=== PATIENT | female | born 1955 ===

== ENCOUNTER 2020-09-12 07:44 | Outpatient (REF) | payer OTHER, SELFPAY ==
[2020-09-12 08:18] LABS: Basophils Percent Auto 0.5 % (0-2); Eosinophils Absolute Auto 0.2 X10*3/uL (0.0-0.4); Hematocrit 40.6 % (37-47); Hemoglobin 12.9 g/dl (12.0-16.0); Imm Gran Abs Auto 0.02 X10*3/uL (0.00-0.03); Imm Gran Pct Auto 0.2 % (0.0-0.4); Lymphocytes Percent Auto 22.7 % (20-40); MANUAL DIFF FLAG NO; Mean Corpuscular HGB Conc 31.8 g/dl (31.0-35.0); Mean Corpuscular Hemoglobin 26.8 pg (27.0-33.0); Mean Corpuscular Volume 84.4 fL (80-98); Mean Platelet Volume 9.4 fL (9.4-12.3); Monocytes Absolute Auto 0.6 X10*3/uL (0.1-1.2); Monocytes Percent Auto 6.8 % (2-11); Neutrophils Absolute Auto 5.9 X10*3/uL (2.0-8.3); Neutrophils Percent Auto 67.8 % (45-73); Platelet Count 264 X10*3/uL (160-400); Red Blood Count 4.81 X10*6/uL (4.20-5.50); Red Cell Distribution Width 14.4 % (11.0-16.0); White Blood Count 8.7 X10*3/uL (4.8-10.8)
[2020-09-12 08:46] LABS: Alanine Aminotransferase 19 U/L (0-31); Albumin Level 3.7 g/dL (3.5-5.0); Alkaline Phosphatase 90 U/L (39-117); Anion Gap 13 (12-20); Aspartate Amino Transferase 17 U/L (5-31); Bilirubin Total 0.4 mg/dL (0.0-1.0); Blood Urea Nitrogen 27 mg/dL (9-16); C Reactive Protein 1.33 mg/dL (< or = 0.50); Calcium 8.9 mg/dL (8.4-10.2); Carbon Dioxide 28 mmol/L (22-29); Chloride 105 mmol/L (96-108); Cholesterol 179 mg/dL; Estimated Glomerular Filt Rate > 60; Glucose Fasting 115 mg/dL (60-99); HDL Cholesterol 40 mg/dL; LDL Cholesterol Calculated 81 mg/dl; Potassium 4.6 mmol/l (3.3-5.1); Sodium 141 mmol/L (135-145); Triglycerides 290 mg/dL; Uric Acid 7.1 mg/dL (2.4-5.7)
[2020-09-12 09:07] LABS: Vitamin D 25-OH Total 27.5 ng/mL (>30)
[2020-09-12 09:13] LABS: Erythrocyte Sedimentation Rate 43 MM/HR (0-20)
[2020-09-12 09:16] LABS: Glucose Urine UA NEG (NEG); Leukocyte Esterase Urine NEG (NEG); Nitrite Urine NEG (NEG); Specific Gravity - Urine 1.015 (1.005-1.025); Urine Blood NEG (NEG); Urine Ketones NEG (NEG); Urine Protein NEG (NEG-TRACE)
[2020-09-12 09:17] LABS: Appearance Urine HAZY; Color Urine YELLOW
[2020-09-12 09:20] LABS: Estimated Average Glucose 126 mg/dL
[2020-09-12 10:18] LABS: Creatinine Urine 64.23 mg/dL; Microalbum/Creatinine Ratio Ur 34.2 ug/mg cr
== END 2020-09-12 07:45 | disposition home or self-care (01) ==
LOC: HO.LAB 07:44
PROVIDERS: PCP Internal Medicine; Visit Provider Internal Medicine
DX: E78.5 Hyperlipidemia, unspecified (principal); I10 Essential (primary) hypertension; E11.9 Type 2 diabetes mellitus without complications; M25.572 Pain in left ankle and joints of left foot; M06.4 Inflammatory polyarthropathy; K21.9 Gastro-esophageal reflux disease without esophagitis; E55.9 Vitamin D deficiency, unspecified
CPT/HCPCS: 36415; 80053; 80061; 81003; 82043; 82306; 83036; 84550; 85025; 85652; 86140

== ENCOUNTER 2020-11-07 10:36 | Outpatient (REF) | payer OTHER, SELFPAY ==
--- NOTE | 2020-11-07 10:40 | MM_ITS ---
EXAMINATION: MM SCREENING DIGITAL BREAST TOMOSYNTHESIS, BILATERAL CLINICAL INFORMATION: Screening. Asymptomatic. The lifetime risk of breast cancer based on the Tyrer-Cuzick Model is 13%. COMPARISON: Mammography: 08/03/2019, 07/15/2018, 06/21/2017 TECHNIQUE: Digital breast tomosynthesis is performed in both the craniocaudal and mediolateral oblique views along with computer-aided detection (CAD). Synthesized 2D images are generated from the tomosynthesis. FINDINGS: There are scattered areas of fibroglandular density (ACR BI-RADS breast composition Category b). There are no significant masses, abnormal calcifications, or other abnormalities. Parenchymal pattern is similar to prior exams. No significant changes. MM/MM tomosynthesis screening BI IMPRESSION: No mammographic evidence of malignancy. ASSESSMENT: BI-RADS 1: Negative RECOMMENDATION: Routine annual mammography screening. This patient's information was entered into a reminder system with a target due date for their next mammogram.
== END 2020-11-07 10:37 | disposition home or self-care (01) ==
LOC: HO.MAMMO 10:36
PROVIDERS: PCP Internal Medicine; Visit Provider Internal Medicine
DX: Z12.31 Encounter for screening mammogram for malignant neoplasm of breast (principal)
CPT/HCPCS: 77063; 77067

== ENCOUNTER 2020-11-18 14:44 | Emergency (ER) | payer OTHER, SELFPAY ==
--- NOTE | 2020-11-18 16:55 | PC.NURSE ---
not present when called for triage
--- NOTE | 2020-11-18 17:15 | PC.NURSE ---
PT IN [facility] WAITING AREA
[2020-11-18 21:29] VITALS: BP 182/80; PULSE 86; RESP 20; TEMP 37.5; O2SAT 96; BMI 42.2
[2020-11-18 21:37] VITALS: BP 182/80; PULSE 86; RESP 20; TEMP 37.5; O2SAT 96
--- NOTE | 2020-11-18 23:06 | ED_ITS ---
HPI - Ear Problem General Chief complaint: Ear Problems Stated complaint: ear pain, dizziness,fever Time Seen by Provider: 11/18/20 16:34 Source: patient Mode of arrival: ambulatory Limitations: no limitations History of Present Illness HPI Narrative: Patient comes in complaining of left-sided ear pain, started yesterday. Patient states for the last 2 days, she has been complaining of diffuse body aches, bilateral upper back pain, arm pains, no chest pain, no shortness of breath. Patient denies coughing MD Complaint: ear pain Related Data Home Medications Medication Instructions Recorded Confirmed acetaminophen 500 mg tablet 500 mg PO Q6H PRN 09/17/20 11/18/20 aspirin 81 mg tablet,delayed 81 mg PO QAM 09/17/20 09/23/20 release folic acid 1 mg tablet 1 mg PO DAILY 09/17/20 11/18/20 hydrochlorothiazide 25 mg tablet 25 mg PO DAILY 09/17/20 11/18/20 polyethylene glycol 3350 17 17 g PO DAILY 09/17/20 11/18/20 gram/dose oral powder potassium chloride 10 mEq 10 meq PO DAILY 09/17/20 11/18/20 tablet,extended release sennosides 8.6 mg tablet 8.6 mg PO DAILY 09/17/20 11/18/20 trazodone 100 mg tablet 100 mg PO BEDTIME 09/17/20 11/18/20 lancets [TRUEplus Lancets] 11/18/20 11/18/20 sitagliptin [Januvia] 1 tab PO QAM 11/18/20 11/18/20 Previous Rx's Medication Instructions Recorded atorvastatin 20 mg tablet 20 mg PO BEDTIME #30 tab 09/04/20 furosemide 40 mg tablet 40 mg PO DAILY #30 tab 09/04/20 metformin 1,000 mg tablet 1,000 mg PO BID #60 tab 09/04/20 omeprazole 20 mg capsule,delayed 20 mg PO QAM #30 cap 09/04/20 release valsartan 320 mg tablet 320 mg PO QAM #30 tab 09/04/20 ergocalciferol (vitamin D2) 1,250 1,250 mcg PO QWEEK #4 cap 09/30/20 mcg (50,000 unit) capsule metoprolol tartrate 50 mg tablet 50 mg PO BID #60 tab 10/02/20 blood sugar diagnostic 1 strip MISCELLANEOUS DAILY 50 10/29/20 Days #50 strip acetic acid 3 drp OTIC (EAR) LEFT Q6H #15 ml 11/18/20 amoxicillin-pot clavulanate 1 tab PO Q12H #19 tab 11/18/20 [Augmentin] Allergies Allergy/AdvReac Type Severity Reaction Status Date / Time tramadol AdvReac Intermediate stomach Verified 11/18/20 21:40 upset Review of Systems Review of Systems: Constitutional : No Weight loss, No Fever, No Chills, No Night Sweats, No Fatigue, No Malaise ENT/Mouth : No Hearing loss, complaining of left-sided ear pain, No Nasal Congestion, No Sinus Pain, No Hoarseness, slight sore throat, No Rhinorrhea, No Swallowing Difficulty Eyes: No Eye Pain, No Swelling, No Redness, No Foreign Body, No Discharge, No Vision Changes Cardiovascular : No Chest Pain, No SOB, No Dyspnea on Exertion, No Orthopnea, No Edema, No Palpitations Respiratory : No Cough, No Sputum, No Wheezing, No Smoke Exposure, No Dyspnea Gastrointestinal : No Nausea, No Vomiting, No Diarrhea, No Constipation, No abdominal Pain, No Hematochezia, No Melena Genitourinary : no irregular bleeding, No Dysuria, No Urinary Frequency, No Hematuria, No Urinary Incontinence, No Urgency, No Flank Pain, No Urinary Flow Changes, No Hesitancy Musculoskeletal : No joint pain, No Myalgias, No Joint Swelling Skin : No Skin Lesions, No rash Neuro : No Weakness, No Numbness, No Paresthesias, No Loss of Consciousness, No Dizziness, No Headache Psych : No Anxiety/Panic, No Depression, No SI/HI/AH/VH, No Social Issues, Heme/Lymph: No Bruising, No Bleeding,No Lymphadenopathy Endocrine : No Polyuria, No Polydipsia, No Temperature Intolerance [facility] Past Medical History Medical History Anxiety Benign essential hypertension Constipation Diabetes mellitus GERD without esophagitis Inflammatory polyarthropathy Insomnia Morbid obesity with BMI of 40.0-44.9, adult Obstructive sleep apnea Osteoarthritis of knee Overactive bladder Pure hypercholesterolemia Varicose veins of leg with edema Vitamin D deficiency Surgical History History of cardiac catheterization History of cataract surgery History of surgery Family History Family History Father Heart disease CVD (cardiovascular disease) Mother CVD (cardiovascular disease) Diabetes Heart disease Social History Social History (Updated 09/23/20 @ 02:23 by Anthony Lui MD) Alcohol intake: unknown Smoking Status: Unknown if ever smoked Use of substances other than those prescribed or required for medical reasons: Unknown Advance Directives: No Physical Exam Vital Signs: Vital Signs: Last Vital Signs Temp 99.5 F 11/18/20 21:37 Pulse 86 11/18/20 21:37 Resp 20 11/18/20 21:37 BP 182/80 H 11/18/20 21:37 Pulse Ox 96 11/18/20 21:37 Body Mass Index 42.2 Appearance: Alert. Oriented X3. No acute distress. Eyes: Pupils equal, round and reactive to light. ENT: Pharynx normal. 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 Oropharynx normal, no exudates, no abscess Neck: Normal inspection. Neck supple. No lymph nodes noted. No crepitus CVS: Normal heart rate and rhythm. Pulses normal. Normal S1 and S2 Respiratory: No respiratory distress. Breath sounds normal. No Wheezing. No rales Abdomen: Soft and nontender. No rigidity. No distention. good BS x4 Skin: Skin warm and dry. Normal skin color. Normal skin turgor. Extremities: No lower extremity edema. No lower extremity edema. No Lacerations. No Rash Neuro: Oriented X 3. No motor deficit. No sensory deficit. Moving all exterm ities. No slurred speech. Course Course Course Narrative: I discussed the physical exam with the patient, she likely has otitis media. Patient was tested for COVID-19, results will be available in the next 72 hours Prior to discharge, patient requested something to help her sleep tonight, patient received 1 dose of Benadryl Discharge Plan Discharge Clinical Impression: Body aches Otitis media Qualifiers: Otitis media type: unspecified Chronicity: acute Qualified Code(s): H66.90 - Otitis media, unspecified, unspecified ear Patient Disposition: Home, Self-Care Instructions: Ear Infection (ED) Prescriptions: New amoxicillin-pot clavulanate [Augmentin] 500-125 mg tablet 1 tab PO Q12H Qty: 19 RF: 0 acetic acid 2 % solution 3 drp otic (ear) left Q6H Qty: 15 RF: 0 No Action furosemide 40 mg tablet 40 mg PO DAILY Qty: 30 RF: 5 metformin 1,000 mg tablet 1,000 mg PO BID Qty: 60 RF: 5 omeprazole 20 mg capsule,delayed release(DR/EC) 20 mg PO QAM Qty: 30 RF: 5 valsartan 320 mg tablet 320 mg PO QAM Qty: 30 RF: 5 atorvastatin 20 mg tablet 20 mg PO BEDTIME Qty: 30 RF: 5 ergocalciferol (vitamin D2) [Vitamin D2] 1,250 mcg (50,000 unit) capsule 1,250 mcg PO QWEEK Qty: 4 RF: 6 metoprolol tartrate 50 mg tablet 50 mg PO BID Qty: 60 RF: 6 blood sugar diagnostic [FreeStyle Lite Strips] Strip 1 strip miscellaneous DAILY 50 Days Qty: 50 RF: 3 Januvia 100 mg tablet 1 tab PO QAM RF: 0 (DME) lancets [TRUEplus Lancets] 33 gauge misc MISCELLANEOUS QID RF: 0 polyethylene glycol 3350 17 gram/dose powder 17 g PO DAILY RF: 0 trazodone 100 mg tablet 100 mg PO BEDTIME RF: 0 hydrochlorothiazide 25 mg tablet 25 mg PO DAILY RF: 0 folic acid 1 mg tablet 1 mg PO DAILY RF: 0 potassium chloride 10 mEq tablet extended release 10 meq PO DAILY RF: 0 sennosides 8.6 mg tablet 8.6 mg PO DAILY RF: 0 aspirin 81 mg tablet,delayed release (DR/EC) 81 mg PO QAM RF: 0 acetaminophen 500 mg tablet 500 mg PO Q6H PRN (Reason: Pain, Moderate) RF: 0
[2020-11-18] MEDS: diphenhydrAMINE HCL 25 MG TABLET 50 MG PO (23:34)
[2020-11-18] MEDS: Amoxicillin/Potassium Clav 500 MG TABLET PO (23:34)
== END 2020-11-18 23:46 | disposition home or self-care (01) ==
PROVIDERS: Emergency Provider Emergency Medicine; PCP Internal Medicine
DX: H66.92 Otitis media, unspecified, left ear (principal); M79.10 Myalgia, unspecified site; Z20.828 Contact with and (suspected) exposure to other viral communicable diseases; I10 Essential (primary) hypertension; E11.9 Type 2 diabetes mellitus without complications
CPT/HCPCS: 36415; 99283; 99284; Q0163; U0003

== ENCOUNTER 2021-02-04 07:00 | Outpatient (REF) | payer OTHER, SELFPAY ==
[2021-02-04 07:56] LABS: MANUAL DIFF FLAG NO
[2021-02-04 08:03] LABS: Basophils Absolute Auto 0.1 X10*3/uL (0.0-0.2); Basophils Percent Auto 0.6 % (0-2); Eosinophils Absolute Auto 0.1 X10*3/uL (0.0-0.4); Eosinophils Percent Auto 1.4 % (0-4); Hematocrit 44.7 % (37-47); Hemoglobin 14.1 g/dl (12.0-16.0); Imm Gran Abs Auto 0.02 X10*3/uL (0.00-0.03); Imm Gran Pct Auto 0.2 % (0.0-0.4); Lymphocytes Absolute Auto 2.1 X10*3/uL (1.2-4.9); Lymphocytes Percent Auto 24.6 % (20-40); Mean Corpuscular HGB Conc 31.5 g/dl (31.0-35.0); Mean Corpuscular Hemoglobin 26.9 pg (27.0-33.0); Mean Corpuscular Volume 85.3 fL (80-98); Monocytes Absolute Auto 0.6 X10*3/uL (0.1-1.2); Monocytes Percent Auto 6.8 % (2-11); Neutrophils Absolute Auto 5.7 X10*3/uL (2.0-8.3); Neutrophils Percent Auto 66.4 % (45-73); Platelet Count 309 X10*3/uL (160-400); Red Blood Count 5.24 X10*6/uL (4.20-5.50); Red Cell Distribution Width 14.5 % (11.0-16.0); White Blood Count 8.5 X10*3/uL (4.8-10.8)
[2021-02-04 08:23] LABS: Glucose Urine UA NEG (NEG); Leukocyte Esterase Urine NEG (NEG); Nitrite Urine NEG (NEG); PH 6.5 (5.0-8.0); Specific Gravity - Urine 1.025 (1.005-1.025); Urine Blood NEG (NEG); Urine Ketones NEG (NEG); Urine Protein NEG (NEG-TRACE)
[2021-02-04 08:27] LABS: Appearance Urine CLEAR; Color Urine YELLOW
[2021-02-04 08:33] LABS: Alanine Aminotransferase 16 U/L (0-31); Albumin Level 3.9 g/dL (3.5-5.0); Alkaline Phosphatase 104 U/L (39-117); Anion Gap 14 (12-20); Aspartate Amino Transferase 16 U/L (5-31); Bilirubin Total 0.5 mg/dL (0.0-1.0); Blood Urea Nitrogen 25 mg/dL (9-16); Calcium 9.5 mg/dL (8.4-10.2); Carbon Dioxide 28 mmol/L (22-29); Chloride 105 mmol/L (96-108); Cholesterol 227 mg/dL; Estimated Glomerular Filt Rate > 60; Glucose Fasting 114 mg/dL (60-99); HDL Cholesterol 41 mg/dL; LDL Cholesterol Calculated 125 mg/dl; Potassium 4.1 mmol/L (3.3-5.1); Sodium 143 mmol/L (135-145); Total Protein 7.3 g/dL (6.5-8.0); Triglycerides 308 mg/dL
[2021-02-04 08:44] LABS: Creatinine Urine 110.28 mg/dL
[2021-02-04 08:52] LABS: TSH reflex Free T4 1.52 uIU/mL (0.32-4.0)
== END 2021-02-04 07:01 | disposition home or self-care (01) ==
LOC: HO.LAB 07:00
PROVIDERS: PCP Internal Medicine; Visit Provider Internal Medicine
DX: K21.9 Gastro-esophageal reflux disease without esophagitis (principal); I10 Essential (primary) hypertension; E78.00 Pure hypercholesterolemia, unspecified; E55.9 Vitamin D deficiency, unspecified; K59.00 Constipation, unspecified; G47.33 Obstructive sleep apnea (adult) (pediatric); E11.9 Type 2 diabetes mellitus without complications; E66.01 Morbid (severe) obesity due to excess calories; Z68.41 Body mass index [BMI] 40.0-44.9, adult
CPT/HCPCS: 36415; 80053; 80061; 81003; 82043; 82306; 84443; 85025

== ENCOUNTER 2021-05-03 13:59 | Emergency (ER) | payer OTHER, SELFPAY ==
--- NOTE | ~2021-05-03 | XR_ITS ---
EXAMINATION: BILATERAL KNEE, BILATERAL FOREARM,, BILATERAL SHOULDER AND LEFT ANKLE. CLINICAL INFORMATION: Status post fall with multiple injuries and pain COMPARISON: None. TECHNIQUE: 3 views left ankle. 2 views both knees. 2 views both foraminal and 2 views both shoulders. FINDINGS: Left ankle: There is bimalleolar soft tissue swelling. No visible acute fracture, dislocation or subluxation seen. There are small bone fragments along the tip of medial malleolus likely old injury. There is a large calcaneal heel and retrocalcaneal enthesophytes Right knee: There is loss of patellofemoral and medial compartment joint space with moderate periarticular osteophytosis. No loose body seen. Moderate osteophytes is seen along the anterior superior patella and mild joint effusion. Left knee: There is loss of medial and patellofemoral compartment joint space with periarticular spurring. Mild suprapatellar joint effusion and large superior patellar enthesophytes are seen. Left forearm: There is no visible acute fracture, dislocation or subluxation. No soft tissue involvement. Right forearm: There is no visible acute fracture, dislocation or soft tissue abnormality. Left shoulder: There is no visible acute fracture, dislocation or subluxation. There is mild superior acromial enthesophyte. The soft tissues are normal. Right shoulder: There is mild loss of AC joint space periapical spurring. Superior acromial enthesophytes is seen. No visible acute fracture or dislocation seen. XR/XR forearm LT 2V IMPRESSION: Bimalleolar soft tissue swelling slightly greater on the lateral side but no visible fracture. Likely ligamentous injury Moderate degenerative changes medial and patellofemoral compartments with moderate periarticular spurring and mild suprapatellar joint effusion both knees. No acute fracture seen. Unremarkable bilateral forearm exam. Mild degenerative arthritic changes bilateral AC joints and superior acromial enthesophytes. No acute fracture or dislocation seen.
--- NOTE | ~2021-05-03 | XR_ITS ---
EXAMINATION: BILATERAL KNEE, BILATERAL FOREARM,, BILATERAL SHOULDER AND LEFT ANKLE. CLINICAL INFORMATION: Status post fall with multiple injuries and pain COMPARISON: None. TECHNIQUE: 3 views left ankle. 2 views both knees. 2 views both foraminal and 2 views both shoulders. FINDINGS: Left ankle: There is bimalleolar soft tissue swelling. No visible acute fracture, dislocation or subluxation seen. There are small bone fragments along the tip of medial malleolus likely old injury. There is a large calcaneal heel and retrocalcaneal enthesophytes Right knee: There is loss of patellofemoral and medial compartment joint space with moderate periarticular osteophytosis. No loose body seen. Moderate osteophytes is seen along the anterior superior patella and mild joint effusion. Left knee: There is loss of medial and patellofemoral compartment joint space with periarticular spurring. Mild suprapatellar joint effusion and large superior patellar enthesophytes are seen. Left forearm: There is no visible acute fracture, dislocation or subluxation. No soft tissue involvement. Right forearm: There is no visible acute fracture, dislocation or soft tissue abnormality. Left shoulder: There is no visible acute fracture, dislocation or subluxation. There is mild superior acromial enthesophyte. The soft tissues are normal. Right shoulder: There is mild loss of AC joint space periapical spurring. Superior acromial enthesophytes is seen. No visible acute fracture or dislocation seen. XR/XR ankle LT min 3V IMPRESSION: Bimalleolar soft tissue swelling slightly greater on the lateral side but no visible fracture. Likely ligamentous injury Moderate degenerative changes medial and patellofemoral compartments with moderate periarticular spurring and mild suprapatellar joint effusion both knees. No acute fracture seen. Unremarkable bilateral forearm exam. Mild degenerative arthritic changes bilateral AC joints and superior acromial enthesophytes. No acute fracture or dislocation seen.
--- NOTE | ~2021-05-03 | CT_ITS ---
EXAMINATION: CT HEAD W/O IV CONTRAST CT CERVICAL SPINE W/O IV CONTRAST CLINICAL INFORMATION: 65-year-old female with history of fall, closed head injury, loss of consciousness. COMPARISON: None TECHNIQUE: Head - Contiguous axial imaging of the head was performed from the skull base to the vertex without the administration of intravenous contrast. Cervical spine - A volumetric, helical CT acquisition of the cervical spine was obtained without contrast; in addition to the standard set of axial images, multiplanar reformatted images were provided in the coronal and sagittal imaging planes. This CT examination was performed using dose optimization techniques as appropriate, variously including the following: *Automated exposure control *Adjustment of mA and/or kV according to patient size (this includes techniques or standardized protocols for targeted exams where dose is matched to indication/reason for exam; i.e. extremities or head) *Use of iterative reconstruction technique DLP: 845.63 mGy-cm for the head 555.93 mGy-cm for the cervical spine FINDINGS: HEAD: No evidence of intracranial hemorrhage, major vascular territory infarction, focal mass effect or midline shift. Day to white matter differentiation is preserved. The ventricles have normal size and configuration. No extra-axial fluid collections. The calvarium is intact and the paranasal sinuses, mastoid air cells and middle ear cavities are clear. The temporomandibular joints are unremarkable. The orbits and globes are intact. Prior ocular lens replacements. CERVICAL SPINE: The cervical spine has normal curvature. No acute abnormalities. The craniocervical junction is normal. The occipital condyles, dens and atlantodental articulation are intact. The vertebral body heights and alignment are maintained. No fractures in the anterior or posterior elements. No prevertebral soft tissue swelling. There are a few foci of anterior ligament ossification as well as anterior osteophytes of the mildly degenerated cervical spine. The vertebral osteophytes are largest anteriorly at C5-C6. The disc spaces are well-preserved. Facet joints are unremarkable. No evidence of spinal canal or neural foraminal stenosis. No spinal hematoma or focal fluid collection in the visualized neck. The examined lung apices are clear. Thyroid gland is normal. CT/CT cervical spine wo con IMPRESSION: * No acute intracranial pathology. * No fracture or malalignment in the cervical spine.
--- NOTE | ~2021-05-03 | CT_ITS ---
EXAMINATION: CT CHEST WITHOUT CONTRAST CLINICAL INFORMATION: History of fall. Patient complaining of multiple injuries. COMPARISON: None TECHNIQUE: Multidetector volumetric CT imaging of the chest was done. Axial MIP volume rendering provided. Sagittal and coronal reformatted images were obtained. This CT examination was performed using dose optimization techniques as appropriate, variously including the following: *Automated exposure control *Adjustment of mA and/or kV according to patient size (this includes techniques or standardized protocols for targeted exams where dose is matched to indication/reason for exam; i.e. extremities or head) *Use of iterative reconstruction technique DLP: 360 mGy-cm FINDINGS: LUNGS AND PLEURA: Lungs are well expanded and clear. No edema, consolidation or mass. No pneumothorax or pleural effusion. CARDIOVASCULAR: The heart size is normal. Mild calcification is observed at level of the mitral valve annulus. Thoracic aorta and pulmonary arteries are normal in caliber. No pericardial effusion. No mediastinal hemorrhage. MEDIASTINUM AND LOWER NECK: The visualized portion of the thyroid gland is normal. The esophagus is grossly normal. No pneumomediastinum. LYMPHATICS: No pathologic sized lymph nodes. UPPER ABDOMEN: No acute abnormalities in the visualized portion of the upper abdomen. No pneumoperitoneum. SKELETAL AND CHEST WALL: No chest wall hematoma. The thoracic vertebra have normal height and alignment. Multilevel osteophyte and/or enthesophyte formation of the spine. The anterior and posterior elements are intact. No rib fractures are seen. No evidence of sternal fracture. No fracture or malalignment at the incompletely visualized shoulders. CT/CT chest wo con IMPRESSION: No acute traumatic pathology in the chest.
--- NOTE | ~2021-05-03 | XR_ITS ---
EXAMINATION: BILATERAL KNEE, BILATERAL FOREARM,, BILATERAL SHOULDER AND LEFT ANKLE. CLINICAL INFORMATION: Status post fall with multiple injuries and pain COMPARISON: None. TECHNIQUE: 3 views left ankle. 2 views both knees. 2 views both foraminal and 2 views both shoulders. FINDINGS: Left ankle: There is bimalleolar soft tissue swelling. No visible acute fracture, dislocation or subluxation seen. There are small bone fragments along the tip of medial malleolus likely old injury. There is a large calcaneal heel and retrocalcaneal enthesophytes Right knee: There is loss of patellofemoral and medial compartment joint space with moderate periarticular osteophytosis. No loose body seen. Moderate osteophytes is seen along the anterior superior patella and mild joint effusion. Left knee: There is loss of medial and patellofemoral compartment joint space with periarticular spurring. Mild suprapatellar joint effusion and large superior patellar enthesophytes are seen. Left forearm: There is no visible acute fracture, dislocation or subluxation. No soft tissue involvement. Right forearm: There is no visible acute fracture, dislocation or soft tissue abnormality. Left shoulder: There is no visible acute fracture, dislocation or subluxation. There is mild superior acromial enthesophyte. The soft tissues are normal. Right shoulder: There is mild loss of AC joint space periapical spurring. Superior acromial enthesophytes is seen. No visible acute fracture or dislocation seen. XR/XR shoulder RT min 2V IMPRESSION: Bimalleolar soft tissue swelling slightly greater on the lateral side but no visible fracture. Likely ligamentous injury Moderate degenerative changes medial and patellofemoral compartments with moderate periarticular spurring and mild suprapatellar joint effusion both knees. No acute fracture seen. Unremarkable bilateral forearm exam. Mild degenerative arthritic changes bilateral AC joints and superior acromial enthesophytes. No acute fracture or dislocation seen.
--- NOTE | ~2021-05-03 | CT_ITS ---
EXAMINATION: CT ABDOMEN AND PELVIS WITHOUT CONTRAST CLINICAL INFORMATION: Status post fall complaining of multiple injuries. COMPARISON: 08/15/2016 TECHNIQUE: Multidetector volumetric imaging was performed from the superior aspect of the liver through the pubic symphysis. Sagittal and coronal reformatted images were obtained on the technologist's workstation. This CT examination was performed using dose optimization techniques as appropriate, variously including the following: *Automated exposure control *Adjustment of mA and/or kV according to patient size (this includes techniques or standardized protocols for targeted exams where dose is matched to indication/reason for exam; i.e. extremities or head) *Use of iterative reconstruction technique DLP: 2812 mGy-cm FINDINGS: LUNG BASES: Motion artifact degrades image quality in the lung bases. No consolidation. Mitral valve calcifications. LIVER, GALLBLADDER, AND BILIARY TREE: The liver is normal in size, shape, and attenuation. No focal hepatic lesion or biliary ductal dilatation is present. Status post cholecystectomy. PANCREAS: Unremarkable. SPLEEN: Unremarkable. ADRENAL GLANDS: Unremarkable. KIDNEYS AND URETERS: The kidneys are normal in size, shape, and attenuation. No hydronephrosis, hydroureter, or calculi seen. No perinephric stranding. BLADDER: Unremarkable. GASTROINTESTINAL TRACT: The small and large bowel are unremarkable. The appendix is unremarkable. ABDOMINAL WALL: No significant hernia is appreciated. LYMPH NODES: Normal. VASCULAR: Unremarkable. PELVIC VISCERA: The uterus and adnexa are unremarkable. OSSEOUS STRUCTURES: Degenerative changes in the thoracolumbar spine CT/CT abdomen pelvis wo con IMPRESSION: No acute abnormality in the abdomen or pelvis. Status post cholecystectomy.
[2021-05-03 14:07] VITALS: BP 155/72; BP 161/89; PULSE 66; PULSE 78; RESP 20; TEMP 37.1; O2SAT 99; BMI 47.0
--- NOTE | 2021-05-03 14:32 | PC.NURSE ---
Family notified per pt request about pt being in the emergency.
--- NOTE | 2021-05-03 14:47 | ED.FALL ---
HPI - Fall General Chief Complaint: Fall <MARGIE Mike - Last Filed: 05/03/21 16:47> Stated Complaint: FALL W/LOC, HIP & ARM PAIN,+CCOLLAR,-THINNERS <MARGIE Mike - Last Filed: 05/03/21 16:47> Time Seen by Provider: 05/03/21 14:11 <MARGIE Mike - Last Filed: 05/03/21 16:47> Source: patient and EMS <MARGEI Mike - Last Filed: 05/03/21 16:47> Mode of arrival: EMS <MARGIE Mike - Last Filed: 05/03/21 16:47> Limitations: no limitations <MARGIE Mike Last Filed: 05/03/21 16:47> History of Present Illness HPI Narrative: 65-year-old female with a past medical history of diabetes, hypertension, hyperlipidemia, obesity and anxiety not on any anticoagulation presenting to the ED via EMS with C-collar in place after she reports she had a mechanical fall while she was grocery shopping at [employer] where she did not see there was water on the ground she slipped and fell hitting her head she reports she lost consciousness for a few seconds then a bystander helped her up and is complaining of head/neck/entire back pain/bilateral shoulder pain/bilateral forearm pain/bilateral knee pain and left ankle pain. Denies any symptoms prior to the fall. Denies pain after the fall otherwise no other associated symptoms. <MARGIE Mike - Last Filed: 05/03/21 16:47> MD complaint: fall <MARGIE Mike - Last Filed: 05/03/21 16:47> Onset (ago): minute(s) (Prior to arrival) <MARGIE Mike - Last Filed: 05/03/21 16:47> Fall from: standing <MARGIE Mike - Last Filed: 05/03/21 16:47> Fall witnessed: yes, by bystander (At grocery store at [employer]) <MARGIE Mike Last Filed: 05/03/21 16:47> Place fall occurred: other (At [employer] grocery store) <MARGIE Mike - Last Filed: 05/03/21 16:47> Loss of consciousness: yes, seconds <MARGIE Mike Last Filed: 05/03/21 16:47> Length of LOC: second(s) <MARGIE Mike Last Filed: 05/03/21 16:47> Prolonged down time: no (She reports a bystander helped her up) <MARGIE Mike Last Filed: 05/03/21 16:47> Symptoms prior to fall: none <MARGIE Mike Last Filed: 05/03/21 16:47> Context: tripped/slipped (On water that was on the ground that she did not see at the grocery store) <MARGIE Mike Last Filed: 05/03/21 16:47> Location of injury: head, neck and back <MARGIE Mike Last Filed: 05/03/21 16:47> Location of injury - extremities: right: ankle and bilateral: shoulder, forearm and knee <MARGIE Mike Last Filed: 05/03/21 16:47> Severity: severe <MARGIE Mike Last Filed: 05/03/21 16:47> Severity scale (1-10): >10 <MARGIE Mike Last Filed: 05/03/21 16:47> Quality: throbbing <MARGIE Mike Last Filed: 05/03/21 16:47> Associated symptoms (after fall): other (Pain to the above although no other associated symptoms) <MARGIE Mike Last Filed: 05/03/21 16:47> Related Data Home Medications: Home Medications Medication Instructions Recorded Confirmed acetaminophen 500 mg tablet 500 mg PO Q6H PRN 09/17/20 02/07/21 polyethylene glycol 3350 17 17 g PO DAILY 09/17/20 02/07/21 gram/dose oral powder Previous Rx's Medication Instructions Recorded blood sugar diagnostic 1 strip MISCELLANEOUS DAILY 50 10/29/20 Days #50 strip acetic acid 3 drp OTIC (EAR) LEFT Q6H #15 ml 11/18/20 folic acid 1 mg tablet 1 mg PO QAM #30 tab 01/31/21 hydrochlorothiazide 25 mg tablet 25 mg PO QAM #30 tab 01/31/21 lancets 33 gauge See Rx Instructions .ROUTE QID 02/21/21 #100 ea aspirin 81 mg tablet,delayed 81 mg PO QAM #30 ea 03/03/21 release atorvastatin 20 mg tablet 20 mg PO BEDTIME #30 tab 03/03/21 furosemide 40 mg tablet 40 mg PO DAILY #30 tab 03/03/21 metformin 1,000 mg tablet 1,000 mg PO BID #60 tab 03/03/21 omeprazole 20 mg capsule,delayed 20 mg PO QAM #30 cap 03/03/21 release sennosides 8.6 mg tablet 8.6 mg PO BEDTIME PRN #30 tab 03/03/21 valsartan 320 mg tablet 320 mg PO QAM #30 tab 03/03/21 sitagliptin 100 mg tablet 100 mg PO QAM #30 tab 04/02/21 ergocalciferol (vitamin D2) 1,250 1,250 mcg PO QWEEK #4 cap 04/28/21 mcg (50,000 unit) capsule metoprolol tartrate 50 mg tablet 50 mg PO BID #60 tab 04/28/21 potassium chloride 10 mEq 10 meq PO QAM #30 tab 04/28/21 tablet,extended release trazodone 100 mg tablet 100 mg PO BEDTIME PRN #30 tab 04/28/21 acetaminophen-codeine 1 tab PO Q8H PRN #10 tab 05/03/21 <MARGIE Mike - Last Filed: 05/03/21 16:47> Allergies/Adverse Reactions: Allergies Allergy/AdvReac Type Severity Reaction Status Date / Time tramadol AdvReac Intermediate stomach Verified 02/07/21 01:26 upset <MARGIE Mike - Last Filed: 05/03/21 16:47> Review of Systems Review of Systems: Constitutional : No changes in activity, No lethargy, No recent prior head injury, No agitation, No increased fussiness ENT/Mouth : No Ear Pain, No Nasal discharge/drainage Eyes: No Eye Pain, No Swelling, No Redness, No Foreign Body, No Vision Changes Cardiovascular : No Chest Pain, No SOB Respiratory : No Cough Gastrointestinal : No Nausea, No Vomiting, No abdominal Pain Genitourinary : No Dysuria, No Urinary Frequency, No Urinary Incontinence, No Urgency, No Flank Pain Musculoskeletal : Positive multiple joint pain, positive neck pain/back pain/injury, No neck stiffness, Skin : No lacerations Neuro : No unsteady gait, No Paresthesias, No Loss of Consciousness, No altered mental status, No Headache <MARGIE Mike - Last Filed: 05/03/21 16:47> Yes all other systems are reviewed and are negative <MARGIE Mike - Last Filed: 05/03/21 16:47> [facility] Past Medical History Attestation statement: The following information was validated with the patient. <MARGIE Mike - Last Filed: 05/03/21 16:47> Medical History: Medical History Anxiety Benign essential hypertension Constipation Diabetes mellitus GERD without esophagitis Inflammatory polyarthropathy Insomnia Morbid obesity with BMI of 40.0-44.9, adult Obstructive sleep apnea Osteoarthritis of knee Overactive bladder Pure hypercholesterolemia Varicose veins of leg with edema Vitamin D deficiency <MARGIE Mike - Last Filed: 05/03/21 16:47> Surgical History: Surgical History History of cardiac catheterization History of cataract surgery History of surgery <MARGIE Mike - Last Filed: 05/03/21 16:47> Family History Family History: Family History Father Heart disease CVD (cardiovascular disease) Mother CVD (cardiovascular disease) Diabetes Heart disease <MARGIE Mike - Last Filed: 05/03/21 16:47> Social History Social History: Social History Alcohol intake: never Advance Directives: Yes Advance Directives Information Provided: Yes Advance Directives on File: No Patient : No <MARGIE Mike Last Filed: 05/03/21 16:47> Physical Exam Vital Signs: Vital Signs: Last Vital Signs Temp 98.7 F 05/03/21 14:07 Pulse 58 05/03/21 16:53 Resp 20 05/03/21 14:07 BP 147/69 H 05/03/21 16:53 Pulse Ox 97 05/03/21 16:53 Body Mass Index 47.0 vital signs have been reviewed as normal and appeared to be correct. Blood pressure hypertensive 155/72. Heart rate normal. Respiration rate normal. Temperature normal. Oxygen saturation normal. <MARGIE Mike - Last Filed: 05/03/21 16:47> Vital Signs: Last Vital Signs Temp 98.7 F 05/03/21 14:07 Pulse 58 05/03/21 16:53 Resp 20 05/03/21 14:07 BP 147/69 H 05/03/21 16:53 Pulse Ox 97 05/03/21 16:53 Body Mass Index 47.0 <JV Kiran-BC - Last Filed: 05/04/21 01:29> Appearance: Alert. Oriented X3. No acute distress. Head: Normal external exam. Normocephalic. Atraumatic. No Melara signs noted. No raccoon eyes noted Eyes: PERRLA. EOMI. Conjunctiva and sclera normal. Eyelids normal. ENT: No septal hematoma or hemotympanum noted. EAC normal. TM's Normal. Pharynx normal. Uvula midline. Moist mucous membranes. No trismus noted. No drooling noted. No muffled voice noted. Neck: Normal inspection. Neck supple. No adenopathy. No meningeal signs. No neck mass noted. Patient with C-collar in place although she reports mid cervical and bilateral paracervical musculature. No step-offs or deformities are noted. CVS: Normal heart rate and rhythm. Heart sound normal. Pulses normal throughout. No murmurs/rales/gallops. Respiratory: No respiratory distress. Painless inspiration. Breath sounds normal. No wheezes/rales/rhonchi noted. Chest nontender. No accessory muscle usage noted or decreased air movement noted. Abdomen: Soft and nontender. Bowel sounds normal in all 4 quadrants. No distention noted. No organomegaly noted. No visible injury noted. Back: Patient with tenderness to palpation to thoracic/lumbar mid spine no step-offs or deformities are noted. Patient neuro intact bilaterally and this in all 4 extremities. Reflex intact bilat understand all 4 extremities. No obvious signs of trauma. No CVA tenderness. Full range of motion noted. No rashes/lesion/induration/fluctuance or signs of infection noted. No abrasion/laceration/ecchymosis or soft tissue swelling noted. Skin: Skin warm and dry. Normal skin color. Normal skin turgor. No rashes/lesions/lacerations noted. Extremities: Patient with tenderness to palpation to bilateral shoulders/bilateral forearm/bilateral knees and left ankle. Although she does not have any obvious deformities in any of those joints and she has full range of motion no laxity. No calf tenderness is noted. No lower extremity edema. Otherwise all other Extremities exhibit normal range of motion and nontender. Neuro: Oriented X 3. No motor deficit. No sensory deficit. Reflexes normal. No focal neuro deficits noted. Vascular: + radial pulses/+ 2 distal pedal pulses/+2 dorsalis pedis b/l. Normal cap refill. No cyanosis noted to upper extremity nails and lower extremity toes nails. <MARGIE Mike - Last Filed: 05/03/21 16:47> Course Course Course Narrative: 14:30pm - 65-year-old female who is not on any blood thinners presenting to the ED after mechanical fall while she was at [employer] grocery shopping where she slipped and fell on water she reports that she hit her head and lost consciousness for few seconds and a bystander helped her back up. She is presenting with neck/entire back pain/bilateral shoulder/bilateral forearm/bilateral knee and left ankle pain. Denies any symptoms prior to the fall and only pain after the fall no other associated symptoms after the fall. Plan: CT scan of brain/cervical spine/CT chest without contrast/CT scan of abdomen pelvis without contrast, bilateral shoulder/bilateral forearm/bilateral knee and left ankle x-ray. Provide Tylenol with codeine and re-evaluate. <MARGIE Mike - Last Filed: 05/03/21 16:47> Reevaluation(s) Reevaluation #1: - CT scan of brain/cervical spine/chest/abdomen pelvis negative for any acute processes. Patient now having her x-ray imaging. <MARGIE Mike - Last Filed: 05/03/21 16:47> X-rays are back, there is a left ankle bimalleolar soft tissue swelling with no visible acute fracture or dislocation or subluxation. We will Rogers wrap her left ankle and send patient home to follow-up with her primary care doctor and Orthopedics <JV Kiran-TIAGO - Last Filed: 05/04/21 01:29> Time: 16:33 <MARGIE Mike - Last Filed: 05/03/21 16:47> Procedures Orthopedic Splinting/Casting Injury #1: Side: left <TREVA Kiran - Last Filed: 05/04/21 01:29> Lower Extremity Injury Location: ankle <TREVA Kiran - Last Filed: 05/04/21 01:29> Lower Extremity Immobilizer: Air[employer] and Rogers wrap <TREVA Kiran - Last Filed: 05/04/21 01:29> MDM - Fall Medical Records Attestation: I reviewed the patient's medical records. <MARGIE Mike - Last Filed: 05/03/21 16:47> Imaging Data CT scan of head/cervical spine without contrast: Attestation: I personally reviewed and interpreted this imaging study as follows: <MARGIE Mike - Last Filed: 05/03/21 16:47> Radiologist's impression: HEAD: No evidence of intracranial hemorrhage, major vascular territory infarction, focal mass effect or midline shift. Day to white matter differentiation is preserved. The ventricles have normal size and configuration. No extra-axial fluid collections. The calvarium is intact and the paranasal sinuses, mastoid air cells and middle ear cavities are clear. The temporomandibular joints are unremarkable. The orbits and globes are intact. Prior ocular lens replacements. CERVICAL SPINE: The cervical spine has normal curvature. No acute abnormalities. The craniocervical junction is normal. The occipital condyles, dens and atlantodental articulation are intact. The vertebral body heights and alignment are maintained. No fractures in the anterior or posterior elements. No prevertebral soft tissue swelling. There are a few foci of anterior ligament ossification as well as anterior osteophytes of the mildly degenerated cervical spine. The vertebral osteophytes are largest anteriorly at C5-C6. The disc spaces are well-preserved. Facet joints are unremarkable. No evidence of spinal canal or neural foraminal stenosis. No spinal hematoma or focal fluid collection in the visualized neck. The examined lung apices are clear. Thyroid gland is normal. CT/CT head/brain wo con IMPRESSION: * No acute intracranial pathology. * No fracture or malalignment in the cervical spine. <MARGIE Mike - Last Filed: 05/03/21 16:47> CT scan of chest without contrast/abdomen and pelvis without contrast: Attestation: I personally reviewed and interpreted this imaging study as follows: <MARGIE Mike - Last Filed: 05/03/21 16:47> Radiologist's impression: FINDINGS: LUNGS AND PLEURA: Lungs are well expanded and clear. No edema, consolidation or mass. No pneumothorax or pleural effusion. CARDIOVASCULAR: The heart size is normal. Mild calcification is observed at level of the mitral valve annulus. Thoracic aorta and pulmonary arteries are normal in caliber. No pericardial effusion. No mediastinal hemorrhage. MEDIASTINUM AND LOWER NECK: The visualized portion of the thyroid gland is normal. The esophagus is grossly normal. No pneumomediastinum. LYMPHATICS: No pathologic sized lymph nodes. UPPER ABDOMEN: No acute abnormalities in the visualized portion of the upper abdomen. No pneumoperitoneum. SKELETAL AND CHEST WALL: No chest wall hematoma. The thoracic vertebra have normal height and alignment. Multilevel osteophyte and/or enthesophyte formation of the spine. The anterior and posterior elements are intact. No rib fractures are seen. No evidence of sternal fracture. No fracture or malalignment at the incompletely visualized shoulders. CT/CT chest wo con IMPRESSION: No acute traumatic pathology in the chest. FINDINGS: LUNG BASES: Motion artifact degrades image quality in the lung bases. No consolidation. Mitral valve calcifications. LIVER, GALLBLADDER, AND BILIARY TREE: The liver is normal in size, shape, and attenuation. No focal hepatic lesion or biliary ductal dilatation is present. Status post cholecystectomy. PANCREAS: Unremarkable. SPLEEN: Unremarkable. ADRENAL GLANDS: Unremarkable. KIDNEYS AND URETERS: The kidneys are normal in size, shape, and attenuation. No hydronephrosis, hydroureter, or calculi seen. No perinephric stranding. BLADDER: Unremarkable. GASTROINTESTINAL TRACT: The small and large bowel are unremarkable. The appendix is unremarkable. ABDOMINAL WALL: No significant hernia is appreciated. LYMPH NODES: Normal. VASCULAR: Unremarkable. PELVIC VISCERA: The uterus and adnexa are unremarkable. OSSEOUS STRUCTURES: Degenerative changes in the thoracolumbar spine CT/CT abdomen pelvis wo con IMPRESSION: No acute abnormality in the abdomen or pelvis. Status post cholecystectomy. <MARGIE Mike - Last Filed: 05/03/21 16:47> X-rays: Radiologist's impression: FINDINGS: Left ankle: There is bimalleolar soft tissue swelling. No visible acute fracture, dislocation or subluxation seen. There are small bone fragments along the tip of medial malleolus likely old injury. There is a large calcaneal heel and retrocalcaneal enthesophytes Right knee: There is loss of patellofemoral and medial compartment joint space with moderate periarticular osteophytosis. No loose body seen. Moderate osteophytes is seen along the anterior superior patella and mild joint effusion. Left knee: There is loss of medial and patellofemoral compartment joint space with periarticular spurring. Mild suprapatellar joint effusion and large superior patellar enthesophytes are seen. Left forearm: There is no visible acute fracture, dislocation or subluxation. No soft tissue involvement. Right forearm: There is no visible acute fracture, dislocation or soft tissue abnormality. Left shoulder: There is no visible acute fracture, dislocation or subluxation. There is mild superior acromial enthesophyte. The soft tissues are normal. Right shoulder: There is mild loss of AC joint space periapical spurring. Superior acromial enthesophytes is seen. No visible acute fracture or dislocation seen. XR/XR knee LT 2V IMPRESSION: Bimalleolar soft tissue swelling slightly greater on the lateral side but no visible fracture. Likely ligamentous injury Moderate degenerative changes medial and patellofemoral compartments with moderate periarticular spurring and mild suprapatellar joint effusion both knees. No acute fracture seen. Unremarkable bilateral forearm exam. Mild degenerative arthritic changes bilateral AC joints and superior acromial enthesophytes. No acute fracture or dislocation seen. <TREVA Kiran - Last Filed: 05/04/21 01:29> Discharge Plan Discharge Clinical Impression: Fall, Head injury with loss of consciousness, Cervical sprain, Sprain of thoracic spine, Lumbar sprain <MARGIE Mike - Last Filed: 05/03/21 16:47> Patient Disposition: Home, Self-Care <MARGIE Mike - Last Filed: 05/03/21 16:47> Instructions: Fall Prevention for Older Adults (ED), Head Injury (ED), Cervical Sprain (ED) <MARGIE Mike - Last Filed: 05/03/21 16:47> Additional Instructions: You were seen here today after sustaining a fall. All you CT scan and x-rays are negative. There is mild swelling of your left ankle that we applied Rogers bandage for stability. Please follow-up with your primary care doctor and orthopedic doctor. The orthopedic doctor's phone number is [phone]. You may return to emergency department if you will have worsening symptoms or if you experience any additional concerning symptoms. <MARGIE Mike - Last Filed: 05/03/21 16:47> Prescriptions: New acetaminophen-codeine 300-30 mg tablet 1 tab PO Q8H PRN (Reason: pain) Qty: 10 RF: 0 No Action blood sugar diagnostic [FreeStyle Lite Strips] Strip 1 strip miscellaneous DAILY 50 Days Qty: 50 RF: 3 folic acid 1 mg tablet 1 mg PO QAM Qty: 30 RF: 9 hydrochlorothiazide 25 mg tablet 25 mg PO QAM Qty: 30 RF: 5 lancets [TRUEplus Lancets] 33 gauge misc See Rx Instructions .ROUTE QID Qty: 100 RF: 11 sennosides [senna] 8.6 mg tablet 8.6 mg PO BEDTIME PRN (Reason: for constipation) Qty: 30 RF: 11 aspirin 81 mg tablet,delayed release (DR/EC) 81 mg PO QAM Qty: 30 RF: 11 furosemide 40 mg tablet 40 mg PO DAILY Qty: 30 RF: 5 omeprazole 20 mg capsule,delayed release(DR/EC) 20 mg PO QAM Qty: 30 RF: 5 atorvastatin 20 mg tablet 20 mg PO BEDTIME Qty: 30 RF: 5 valsartan 320 mg tablet 320 mg PO QAM Qty: 30 RF: 5 metformin 1,000 mg tablet 1,000 mg PO BID Qty: 60 RF: 5 sitagliptin [Januvia] 100 mg tablet 100 mg PO QAM Qty: 30 RF: 2 trazodone 100 mg tablet 100 mg PO BEDTIME PRN (Reason: for insomnia) Qty: 30 RF: 2 potassium chloride 10 mEq tablet extended release 10 meq PO QAM Qty: 30 RF: 3 metoprolol tartrate 50 mg tablet 50 mg PO BID Qty: 60 RF: 6 ergocalciferol (vitamin D2) [Vitamin D2] 1,250 mcg (50,000 unit) capsule 1,250 mcg PO QWEEK Qty: 4 RF: 6 acetic acid 2 % solution 3 drp otic (ear) left Q6H Qty: 15 RF: 0 polyethylene glycol 3350 17 gram/dose powder 17 g PO DAILY RF: 0 acetaminophen 500 mg tablet 500 mg PO Q6H PRN (Reason: Pain, Moderate) RF: 0 <MARGIE Mike - Last Filed: 05/03/21 16:47> Referrals: Anthony Lui MD [Primary Care Provider] - 2 days Khadijah Ramirez MD [Physician] - 2 days <MARGIE Mike - Last Filed: 05/03/21 16:47> Interventions: ED Discharge Assessment Last Done: 05/03/21 18:42 <MARGIE Mike - Last Filed: 05/03/21 16:47> Discharge Date/Time: 05/03/21 18:43 <MARGIE Mike - Last Filed: 05/03/21 16:47> Print Language: [place] <MARGIE Mike - Last Filed: 05/03/21 16:47>
--- NOTE | 2021-05-03 15:55 | PC.NURSE ---
pt medicated with tylenol with codeine for pain of 10/10. Pt back in room from CT, awaiting xray once cspine is cleared. collar remains on pt at this time.
[2021-05-03 16:53] VITALS: BP 147/69; PULSE 58; O2SAT 97
--- NOTE | 2021-05-03 18:43 | PC.NURSE ---
barcode on medication partially missing ?cut off, this RN unable to scan med.
== END 2021-05-03 18:43 | disposition home or self-care (01) ==
PROVIDERS: Emergency Provider Emergency Medicine; PCP Internal Medicine
DX: S06.9X1A Unspecified intracranial injury with loss of consciousness of 30 minutes or less, initial encounter (principal); S13.4XXA Sprain of ligaments of cervical spine, initial encounter; S23.3XXA Sprain of ligaments of thoracic spine, initial encounter; S33.5XXA Sprain of ligaments of lumbar spine, initial encounter; E11.9 Type 2 diabetes mellitus without complications; I10 Essential (primary) hypertension; W01.0XXA Fall on same level from slipping, tripping and stumbling without subsequent striking against object, initial encounter; Y93.89 Activity, other specified; Y92.512 Supermarket, store or market as the place of occurrence of the external cause; Y99.9 Unspecified external cause status; Z79.84 Long term (current) use of oral hypoglycemic drugs; Z79.899 Other long term (current) drug therapy
CPT/HCPCS: 70450; 71250; 72125; 73030; 73090; 73560; 73610; 74176; 99284; 99285

== ENCOUNTER 2021-07-08 06:37 | Outpatient (REF) | payer OTHER, SELFPAY ==
[2021-07-08 07:43] LABS: MANUAL DIFF FLAG NO
[2021-07-08 07:50] LABS: Basophils Absolute Auto 0.1 X10*3/uL (0.0-0.2); Basophils Percent Auto 0.6 % (0-2); Eosinophils Absolute Auto 0.2 X10*3/uL (0.0-0.4); Eosinophils Percent Auto 2.1 % (0-4); Hematocrit 43.8 % (37-47); Imm Gran Abs Auto 0.03 X10*3/uL (0.00-0.03); Imm Gran Pct Auto 0.3 % (0.0-0.4); Lymphocytes Absolute Auto 1.6 X10*3/uL (1.2-4.9); Mean Corpuscular Hemoglobin 27.2 pg (27.0-33.0); Mean Corpuscular Volume 85.2 fL (80-98); Mean Platelet Volume 10.1 fL (9.4-12.3); Monocytes Absolute Auto 0.6 X10*3/uL (0.1-1.2); Monocytes Percent Auto 6.8 % (2-11); Neutrophils Absolute Auto 6.9 X10*3/uL (2.0-8.3); Neutrophils Percent Auto 73.2 % (45-73); Platelet Count 328 X10*3/uL (160-400); Red Blood Count 5.14 X10*6/uL (4.20-5.50); Red Cell Distribution Width 14.4 % (11.0-16.0); White Blood Count 9.4 X10*3/uL (4.8-10.8)
[2021-07-08 07:58] LABS: Estimated Average Glucose 120 mg/dL; Hemoglobin A1c % 5.8 %
[2021-07-08 08:22] LABS: Alanine Aminotransferase 19 U/L (0-31); Albumin Level 3.9 g/dL (3.5-5.0); Alkaline Phosphatase 114 U/L (39-117); Anion Gap 15 (12-20); Aspartate Amino Transferase 16 U/L (5-31); Bilirubin Total 0.3 mg/dL (0.0-1.0); Blood Urea Nitrogen 25 mg/dL (9-16); Calcium 9.9 mg/dL (8.4-10.2); Carbon Dioxide 26 mmol/L (22-29); Chloride 105 mmol/L (96-108); Cholesterol 189 mg/dL; Estimated Glomerular Filt Rate > 60; Glucose Fasting 119 mg/dL (60-99); HDL Cholesterol 41 mg/dL; Potassium 4.2 mmol/L (3.3-5.1); Sodium 142 mmol/L (135-145); Total Protein 7.6 g/dL (6.5-8.0); Triglycerides 464 mg/dL
[2021-07-08 08:34] LABS: TSH reflex Free T4 1.31 uIU/mL (0.32-4.0); Vitamin D 25-OH Total 31.4 ng/mL (>30)
[2021-07-08 08:36] LABS: Erythrocyte Sedimentation Rate 44 MM/HR (0-20)
[2021-07-08 08:49] LABS: Glucose Urine UA NEG (NEG); Leukocyte Esterase Urine NEG (NEG); Nitrite Urine NEG (NEG); Urine Blood NEG (NEG); Urine Ketones 5 MG/DL (NEG); Urine Protein NEG (NEG-TRACE)
[2021-07-08 08:50] LABS: Appearance Urine CLEAR; Color Urine YELLOW
[2021-07-08 09:41] LABS: Creatinine Urine 138.04 mg/dL; Microalbum/Creatinine Ratio Ur 18.1 ug/mg cr
== END 2021-07-08 06:38 | disposition home or self-care (01) ==
LOC: HO.LAB 06:37
PROVIDERS: Absent Provider Internal Medicine Cardiovascular Disease; PCP Internal Medicine; Visit Provider Internal Medicine
DX: E66.01 Morbid (severe) obesity due to excess calories (principal); Z68.41 Body mass index [BMI] 40.0-44.9, adult; K21.9 Gastro-esophageal reflux disease without esophagitis; I10 Essential (primary) hypertension; M17.10 Unilateral primary osteoarthritis, unspecified knee; M06.4 Inflammatory polyarthropathy; E78.00 Pure hypercholesterolemia, unspecified; E55.9 Vitamin D deficiency, unspecified; E11.9 Type 2 diabetes mellitus without complications
CPT/HCPCS: 36415; 80053; 80061; 81003; 82043; 82306; 83036; 84443; 85025; 85652

== ENCOUNTER → 2021-07-23 14:58 | Outpatient (BNVA) | payer OTHER, SELFPAY | PROVIDERS: PCP Internal Medicine; Visit Provider Physician Assistant | DX: M75.82 Other shoulder lesions, left shoulder (principal); I10 Essential (primary) hypertension; E11.9 Type 2 diabetes mellitus without complications; Z98.890 Other specified postprocedural states; Z88.6 Allergy status to analgesic agent | CPT/HCPCS: 20610; 99202; J1020 ==

== ENCOUNTER → 2021-09-03 14:52 | Outpatient (BNVA) | payer OTHER, SELFPAY | PROVIDERS: Visit Provider Physician Assistant | DX: M75.82 Other shoulder lesions, left shoulder (principal) | CPT/HCPCS: 99212 ==

== ENCOUNTER 2021-09-09 12:00 | Outpatient (RCR) | payer OTHER, SELFPAY ==
--- NOTE | 2021-06-06 15:30 | MHC.PT.PR ---
[facility] [place] Office [place] Office [place] Office [address] Gregory Cisse [address] [facility] [phone] F: [phone] F: [phone] F: [phone] F: [phone] Physical Therapy Progress Note Diagnosis: Left Shoulder Injury Date of Surgery: NA Date of Evaluation: 06/06/21 Treatments to Date: 1 Cancellations to Date: 0 No Shows to Date: 0 Subjective: C/O LEFT SHOULDER Pain Score and Location: 9 Objective Measures: PLEASE SEE EVAL Assessment: Full, pain free ROM in 5 weeks Full UE strength, pain free in 5 weeks To perform computer and work tasks without restriction and pain no greater than 2/10 in [address] at minimum of 5# into cabinet at shoulder height in 5 weeks PT Plan: Frequency and Duration: The patient will be seen 2XWEEK FOR 5 WEEKS Treatment Plan: Therapeutic Exercise Dynamic Therapeutic Activities Neuromuscular Re-ed Manual Therapies Joint Mobilization Taping Home Exercise Program Patient Education Electrical Stimulation Iontophoresis Ultrasound Hot or Cold Pack Reviewed/ Agreed with Student Documentation: Therapist: Thank you once again for your referral.
--- NOTE | 2021-09-26 11:36 | MHC.PT.DC ---
[facility] [place] Office [place] Office [place] Office [address] Gregory Cisse 140 [facility] [phone] F: [phone] F: [phone] F: [phone] F: [phone] Physical Therapy Discharge Report Diagnosis: Left Shoulder Injury Date of Surgery: DOI 05/03/21 Date of Evaluation: 06/06/21 Date of Discharge: 09/10/21 Treatments to Date: 18 Cancellations to Date: 2 No Shows to Date: 0 Discharge Status: Achieved Goals Improved Function Independent with [facility] Discharge Summary: pt has been consistently reporting lower pain levels. She is independent with her scapula and cuff strengthening program. She is D/C'd to [facility]. Electronically signed by: Marizol Dominguez PT, DPT Please sign and return to therapist. Thank you for your referral.
== END 2021-09-26 11:39 | disposition home or self-care (01) ==
LOC: HO.PT 12:00
PROVIDERS: PCP Internal Medicine; Visit Provider Physician Assistant
DX: M19.012 Primary osteoarthritis, left shoulder (principal)
CPT/HCPCS: 97110; 97140; 97162

== ENCOUNTER 2021-09-17 09:45 | Outpatient (REF) | payer OTHER, SELFPAY ==
--- NOTE | ~2021-09-17 | MR_ITS ---
EXAMINATION: MR SHOULDER WITHOUT CONTRAST, LEFT CLINICAL INFORMATION: Left shoulder pain following a fall in April 2021. COMPARISON: Left shoulder radiographs dated 05/03/2021 TECHNIQUE: Multisequence MR images of the left shoulder were obtained without contrast on a high-field strength scanner. FINDINGS: ROTATOR CUFF: Complete, full-thickness tear of the supraspinatus tendon measuring up to 3.3 cm in AP dimension with retraction of the torn tendon fibers to the level of the glenohumeral articulation. There is attenuation of the infraspinatus tendon consistent with anterior bursal surface partial tearing. The posterior infraspinatus tendon fibers remain intact. There is moderate subscapularis tendinosis with distal articular surface partial tearing. Moderate supraspinatus and infraspinatus muscle atrophy. BICEPS: Absence of the proximal long head biceps tendon, consistent with a complete tear and retraction. CORACOACROMIAL ARCH: The undersurface of the acromion is curved with subacromial spurs. Moderate acromioclavicular osteoarthritis. LABRUM/CAPSULE: Attenuation and irregularity through the posterosuperior labrum, likely representing nondisplaced tearing. Adjacent to the posterosuperior labrum is a lobulated, heterogeneous cystic focus measuring up to 1.2 cm, which may represent a synovial recess versus ganglion cyst. GLENOHUMERAL JOINT/MARROW: Superolateral humeral head articular cartilage full-thickness loss. Diffuse articular cartilage signal heterogeneity. Tiny marginal osteophytes. Moderate joint effusion with mild synovitis. MR/MR shoulder LT wo con IMPRESSION: 1. Complete, full-thickness tear of the supraspinatus tendon with bursal surface tearing extending along the anterior aspect of the infraspinatus tendon. Torn tendon fibers are retracted to the level of the glenohumeral articulation. Moderate supraspinatus and infraspinatus muscle atrophy. Moderate subscapularis tendinosis with distal articular surface partial tearing. 2. Absence of the proximal long head biceps tendon, consistent with a complete tear and retraction. 3. Moderate acromioclavicular osteoarthritis with subacromial spurring. 4. Degenerative tearing through the periphery of the posterosuperior labrum. Adjacent complex cystic structure medial to the glenoid measuring up to 1.2 cm which may represent a synovial recess versus ganglion cyst. 5. Mild glenohumeral osteoarthritis. Moderate joint effusion with mild synovitis.
== END 2021-09-17 09:46 | disposition home or self-care (01) ==
LOC: HO.MRI 09:45
PROVIDERS: Visit Provider Physician Assistant
DX: S46.002D Unspecified injury of muscle(s) and tendon(s) of the rotator cuff of left shoulder, subsequent encounter (principal)
CPT/HCPCS: 73221

== ENCOUNTER → 2021-09-24 10:50 | Outpatient (BNVA) | payer OTHER, SELFPAY | PROVIDERS: PCP Internal Medicine; Visit Provider Physician Assistant | DX: M75.102 Unspecified rotator cuff tear or rupture of left shoulder, not specified as traumatic (principal) | CPT/HCPCS: 99212 ==

== ENCOUNTER → 2021-10-30 09:19 | Outpatient (BNVA) | payer OTHER, SELFPAY | PROVIDERS: PCP Internal Medicine; Visit Provider Orthopaedic Surgery | DX: M12.812 Other specific arthropathies, not elsewhere classified, left shoulder (principal); E11.9 Type 2 diabetes mellitus without complications | CPT/HCPCS: 20610; 99212; J1100 ==

== ENCOUNTER 2021-11-25 09:34 | Outpatient (REF) | payer OTHER, SELFPAY ==
--- NOTE | ~2021-11-25 | MM_ITS ---
EXAMINATION: MM SCREENING DIGITAL BREAST TOMOSYNTHESIS, BILATERAL CLINICAL INFORMATION: Screening. Asymptomatic. The lifetime risk of breast cancer based on the Tyrer-Cuzick Model is 7%. COMPARISON: Mammography: 11/07/2020, 08/03/2019, 07/15/2018 TECHNIQUE: Digital breast tomosynthesis is performed in both the craniocaudal and mediolateral oblique views along with computer-aided detection (CAD). Synthesized 2D images are generated from the tomosynthesis. Additional left MLO view is provided. FINDINGS: There are scattered areas of fibroglandular density (ACR BI-RADS breast composition Category b). There are no significant masses, abnormal calcifications, or other abnormalities. MM/MM tomosynthesis screening BI IMPRESSION: No mammographic evidence of malignancy. ASSESSMENT: BI-RADS 1: Negative RECOMMENDATION: Routine annual mammography screening. This patient's information was entered into a reminder system with a target due date for their next mammogram.
== END 2021-11-25 09:35 | disposition home or self-care (01) ==
LOC: HO.MAMMO 09:34
PROVIDERS: Visit Provider Internal Medicine
DX: Z12.31 Encounter for screening mammogram for malignant neoplasm of breast (principal)
CPT/HCPCS: 77063; 77067

== ENCOUNTER 2021-11-27 09:15 | Outpatient (REF) | payer OTHER, SELFPAY ==
[2021-11-27 10:49] LABS: COVID-19 Test Negative (Negative)
== END 2021-11-27 09:16 | disposition home or self-care (01) ==
LOC: HO.LAB 09:15
PROVIDERS: Visit Provider Internal Medicine
DX: Z20.822 Contact with and (suspected) exposure to COVID-19 (principal)
CPT/HCPCS: 87635; C9803

== ENCOUNTER 2022-01-26 06:41 | Outpatient (REF) | payer OTHER, SELFPAY ==
[2022-01-26 07:03] LABS: MANUAL DIFF FLAG NO
[2022-01-26 07:25] LABS: Basophils Absolute Auto 0.1 X10*3/uL (0.0-0.2); Basophils Percent Auto 0.6 % (0-2); Eosinophils Absolute Auto 0.3 X10*3/uL (0.0-0.4); Eosinophils Percent Auto 3.5 % (0-4); Hematocrit 40.7 % (37.0-47.0); Imm Gran Abs Auto 0.06 X10*3/uL (0.00-0.03); Imm Gran Pct Auto 0.7 % (0.0-0.4); Lymphocytes Absolute Auto 2.1 X10*3/uL (1.2-4.9); Lymphocytes Percent Auto 24.1 % (20-40); Mean Corpuscular HGB Conc 31.9 g/dl (31.0-35.0); Mean Corpuscular Hemoglobin 27.4 pg (27.0-33.0); Mean Corpuscular Volume 85.7 fL (80.0-98.0); Mean Platelet Volume 9.5 fL (9.4-12.3); Monocytes Absolute Auto 0.6 X10*3/uL (0.1-1.2); Monocytes Percent Auto 7.1 % (2-11); Neutrophils Absolute Auto 5.5 x10*3/uL (2.0-8.3); Platelet Count 282 X10*3/uL (160-400); Red Blood Count 4.75 X10*6/uL (4.20-5.50); Red Cell Distribution Width 13.8 % (11.0-16.0); White Blood Count 8.6 X10*3/uL (4.8-10.8)
[2022-01-26 07:36] LABS: Estimated Average Glucose 134 mg/dL; Hemoglobin A1c % 6.3 %
[2022-01-26 08:01] LABS: Appearance Urine CLEAR; Color Urine YELLOW; Glucose Urine UA NEG (NEG); Leukocyte Esterase Urine NEG (NEG); Nitrite Urine NEG (NEG); Urine Blood NEG (NEG); Urine Ketones NEG (NEG); Urine Protein NEG (NEG-TRACE)
[2022-01-26 08:27] LABS: Creatinine Urine 46.68 mg/dL; Microalbum/Creatinine Ratio Ur 49.2 ug/mg cr
[2022-01-26 08:32] LABS: Alanine Aminotransferase 30 U/L (0-31); Albumin Level 3.7 g/dL (3.5-5.0); Alkaline Phosphatase 91 U/L (39-117); Anion Gap 15 (12-20); Aspartate Amino Transferase 22 U/L (5-31); Bilirubin Total < 0.2 mg/dL (0.0-1.0); Blood Urea Nitrogen 20 mg/dL (9-16); Calcium 9.2 mg/dL (8.4-10.2); Carbon Dioxide 23 mmol/L (22-29); Chloride 107 mmol/L (96-108); Cholesterol 196 mg/dL; Estimated Glomerular Filt Rate > 60; Glucose Fasting 117 mg/dL (60-99); HDL Cholesterol 41 mg/dL; LDL Cholesterol Calculated 88 mg/dl; Sodium 141 mmol/L (135-145); Total Protein 7.3 g/dL (6.5-8.0); Triglycerides 339 mg/dL
[2022-01-26 08:36] LABS: TSH reflex Free T4 3.48 uIU/mL (0.32-4.0); Vitamin D 25-OH Total 27.9 ng/mL (>30)
== END 2022-01-26 06:42 | disposition home or self-care (01) ==
LOC: HO.LAB 06:41
PROVIDERS: PCP Internal Medicine; Visit Provider Internal Medicine
DX: E11.9 Type 2 diabetes mellitus without complications (principal); E78.00 Pure hypercholesterolemia, unspecified; E55.9 Vitamin D deficiency, unspecified; I10 Essential (primary) hypertension
CPT/HCPCS: 36415; 80053; 80061; 81003; 82043; 82306; 83036; 84443; 85025

== ENCOUNTER → 2022-01-29 09:09 | Outpatient (BNVA) | payer OTHER, SELFPAY | PROVIDERS: PCP Internal Medicine; Visit Provider Orthopaedic Surgery | DX: M17.10 Unilateral primary osteoarthritis, unspecified knee (principal); M12.812 Other specific arthropathies, not elsewhere classified, left shoulder; E11.9 Type 2 diabetes mellitus without complications; E66.01 Morbid (severe) obesity due to excess calories; Z68.41 Body mass index [BMI] 40.0-44.9, adult | CPT/HCPCS: 20610; 99212; J1100 ==

== ENCOUNTER → 2022-03-24 10:17 | Outpatient (BNVA) | payer OTHER, MEDICARE, SELFPAY | PROVIDERS: PCP Internal Medicine; Visit Provider Nurse Practitioner Family | DX: G47.33 Obstructive sleep apnea (adult) (pediatric) (principal); R40.0 Somnolence; R06.83 Snoring; Z99.89 Dependence on other enabling machines and devices | CPT/HCPCS: 99202 ==

== ENCOUNTER → 2022-04-28 09:55 | Outpatient (REF) | payer OTHER, SELFPAY | LOC: HO.SL 09:55 | PROVIDERS: PCP Internal Medicine; Visit Provider Nurse Practitioner Family | DX: Z13.89 Encounter for screening for other disorder (principal) ==

== ENCOUNTER → 2022-05-01 09:30 | Outpatient (BNVA) | payer OTHER, SELFPAY | PROVIDERS: PCP Internal Medicine; Visit Provider Orthopaedic Surgery | DX: M12.812 Other specific arthropathies, not elsewhere classified, left shoulder (principal); E11.9 Type 2 diabetes mellitus without complications; E66.01 Morbid (severe) obesity due to excess calories; Z68.41 Body mass index [BMI] 40.0-44.9, adult | CPT/HCPCS: 99212 ==

== ENCOUNTER → 2022-05-04 12:03 | Outpatient (REF) | payer OTHER, SELFPAY | LOC: HO.SL 12:03 | PROVIDERS: PCP Internal Medicine; Visit Provider Nurse Practitioner Family | DX: G47.33 Obstructive sleep apnea (adult) (pediatric) (principal); R06.83 Snoring; R40.0 Somnolence; Z99.89 Dependence on other enabling machines and devices | CPT/HCPCS: 95806 ==

== ENCOUNTER 2022-05-07 06:32 | Outpatient (REF) | payer OTHER, SELFPAY ==
[2022-05-07 06:51] LABS: MANUAL DIFF FLAG NO
[2022-05-07 07:12] LABS: Basophils Percent Auto 0.4 % (0-2); Eosinophils Absolute Auto 0.2 X10*3/uL (0.0-0.4); Eosinophils Percent Auto 2.6 % (0-4); Hematocrit 40.6 % (37.0-47.0); Hemoglobin 13.1 g/dl (12.0-16.0); Imm Gran Abs Auto 0.04 X10*3/uL (0.00-0.03); Imm Gran Pct Auto 0.5 % (0.0-0.4); Lymphocytes Absolute Auto 2.6 X10*3/uL (1.2-4.9); Lymphocytes Percent Auto 30.9 % (20-40); Mean Corpuscular HGB Conc 32.3 g/dl (31.0-35.0); Mean Corpuscular Hemoglobin 27.4 pg (27.0-33.0); Mean Corpuscular Volume 84.9 fL (80.0-98.0); Mean Platelet Volume 9.5 fL (9.4-12.3); Monocytes Absolute Auto 0.7 X10*3/uL (0.1-1.2); Monocytes Percent Auto 7.8 % (2-11); Neutrophils Absolute Auto 4.8 x10*3/uL (2.0-8.3); Neutrophils Percent Auto 57.8 % (45-73); Platelet Count 246 X10*3/uL (160-400); Red Blood Count 4.78 X10*6/uL (4.20-5.50); Red Cell Distribution Width 14.5 % (11.0-16.0); White Blood Count 8.3 X10*3/uL (4.8-10.8)
[2022-05-07 07:21] LABS: Estimated Average Glucose 140 mg/dL; Hemoglobin A1c % 6.5 %
[2022-05-07 07:36] LABS: Alanine Aminotransferase 43 U/L (0-31); Albumin Level 3.8 g/dL (3.5-5.0); Alkaline Phosphatase 72 U/L (39-117); Anion Gap 12 (12-20); Aspartate Amino Transferase 28 U/L (5-31); Bilirubin Total 0.4 mg/dL (0.0-1.0); Blood Urea Nitrogen 20 mg/dL (9-16); Calcium 9.3 mg/dL (8.4-10.2); Carbon Dioxide 27 mmol/L (22-29); Chloride 106 mmol/L (96-108); Cholesterol 164 mg/dL; Estimated Glomerular Filt Rate 57; Glucose Fasting 134 mg/dL (60-99); HDL Cholesterol 42 mg/dL; LDL Cholesterol Calculated 75 mg/dl; Potassium 4.5 mmol/L (3.3-5.1); Sodium 140 mmol/L (135-145); Total Protein 7.1 g/dL (6.5-8.0); Triglycerides 236 mg/dL
[2022-05-07 08:00] LABS: TSH reflex Free T4 2.24 uIU/mL (0.32-4.0); Vitamin D 25-OH Total 27.1 ng/mL (>30)
[2022-05-07 08:05] LABS: Appearance Urine CLEAR; Color Urine YELLOW; Glucose Urine UA NEG (NEG); Leukocyte Esterase Urine NEG (NEG); Nitrite Urine NEG (NEG); Specific Gravity - Urine 1.015 (1.005-1.025); Urine Blood NEG (NEG); Urine Ketones NEG (NEG); Urine Protein NEG (NEG-TRACE)
[2022-05-07 08:22] LABS: Creatinine Urine 50.42 mg/dL; Microalbum/Creatinine Ratio Ur 29.7 ug/mg cr
== END 2022-05-07 06:33 | disposition home or self-care (01) ==
LOC: HO.LAB 06:32
PROVIDERS: PCP Internal Medicine; Visit Provider Internal Medicine
DX: I10 Essential (primary) hypertension (principal); E11.9 Type 2 diabetes mellitus without complications; E78.00 Pure hypercholesterolemia, unspecified; E55.9 Vitamin D deficiency, unspecified
CPT/HCPCS: 36415; 80053; 80061; 81003; 82043; 82306; 83036; 84443; 85025

== ENCOUNTER 2022-08-29 07:03 | Outpatient (REF) | payer MEDICARE, MEDICAID, SELFPAY ==
[2022-08-29 07:18] LABS: MANUAL DIFF FLAG NO
[2022-08-29 07:44] LABS: Basophils Absolute Auto 0.1 X10*3/uL (0.0-0.2); Basophils Percent Auto 0.7 % (0-2); Eosinophils Absolute Auto 0.2 X10*3/uL (0.0-0.4); Eosinophils Percent Auto 2.2 % (0-4); Hematocrit 43.6 % (37.0-47.0); Imm Gran Abs Auto 0.05 X10*3/uL (0.00-0.03); Imm Gran Pct Auto 0.5 % (0.0-0.4); Lymphocytes Absolute Auto 2.2 X10*3/uL (1.2-4.9); Mean Corpuscular HGB Conc 32.1 g/dl (31.0-35.0); Mean Corpuscular Hemoglobin 26.7 pg (27.0-33.0); Mean Corpuscular Volume 83.2 fL (80.0-98.0); Mean Platelet Volume 9.5 fL (9.4-12.3); Monocytes Absolute Auto 0.7 X10*3/uL (0.1-1.2); Monocytes Percent Auto 6.7 % (2-11); Neutrophils Absolute Auto 7.3 x10*3/uL (2.0-8.3); Neutrophils Percent Auto 68.9 % (45-73); Platelet Count 305 X10*3/uL (160-400); Red Blood Count 5.24 X10*6/uL (4.20-5.50); Red Cell Distribution Width 14.4 % (11.0-16.0); White Blood Count 10.6 X10*3/uL (4.8-10.8)
[2022-08-29 08:00] LABS: Estimated Average Glucose 140 mg/dL; Hemoglobin A1c % 6.5 %
[2022-08-29 08:11] LABS: Alanine Aminotransferase 21 U/L (0-31); Alkaline Phosphatase 94 U/L (39-117); Anion Gap 17 (12-20); Aspartate Amino Transferase 20 U/L (5-31); Bilirubin Total 0.2 mg/dL (0.0-1.0); Blood Urea Nitrogen 25 mg/dL (9-16); Calcium 10.1 mg/dL (8.4-10.2); Carbon Dioxide 29 mmol/L (22-29); Chloride 102 mmol/L (96-108); Cholesterol 173 mg/dL; Estimated Glomerular Filt Rate > 60; Glucose Fasting 127 mg/dL (60-99); HDL Cholesterol 47 mg/dL; LDL Cholesterol Calculated 92 mg/dl; Potassium 3.8 mmol/L (3.3-5.1); Sodium 144 mmol/L (135-145); Total Protein 7.7 g/dL (6.5-8.0); Triglycerides 174 mg/dL
[2022-08-29 08:12] LABS: Appearance Urine Clear; Color Urine Yellow; Glucose Urine UA Negative (Negative); Leukocyte Esterase Urine Trace (Negative); Nitrite Urine Negative (Negative); PH 6.5 (5.0-9.0); UMIC TRIGGER UACC YES; Urine Blood Negative (Negative); Urine Ketones Negative (Negative); Urine Protein Negative (Neg-Trace)
[2022-08-29 08:19] LABS: Bacteria Urine None Seen (None Seen); Hyaline Casts Urine 0-2 /LPF (0-2); RBC Urine 0-2 /HPF (0-2); Squamous Epithelial Cell Urine 0-2 /HPF (0-2); WBC Urine 0-5 /HPF (0-5)
[2022-08-29 08:36] LABS: Erythrocyte Sedimentation Rate 39 MM/HR (0-20)
[2022-08-29 08:39] LABS: TSH reflex Free T4 2.31 uIU/mL (0.32-4.0)
[2022-08-29 08:43] LABS: Creatinine Urine 94.39 mg/dL; Microalbum/Creatinine Ratio Ur 23.3 ug/mg cr
== END 2022-08-29 07:04 | disposition home or self-care (01) ==
LOC: HO.LAB 07:03
PROVIDERS: PCP Internal Medicine; Visit Provider Internal Medicine
DX: E78.00 Pure hypercholesterolemia, unspecified (principal); M06.4 Inflammatory polyarthropathy; E55.9 Vitamin D deficiency, unspecified; E11.9 Type 2 diabetes mellitus without complications; I10 Essential (primary) hypertension
CPT/HCPCS: 36415; 80053; 80061; 81001; 82043; 82306; 83036; 84443; 85025; 85652; 86140

== ENCOUNTER → 2022-09-08 10:37 | Outpatient (BNVA) | payer MEDICARE, MEDICAID, SELFPAY | PROVIDERS: PCP Internal Medicine; Visit Provider Nurse Practitioner Family | DX: G47.33 Obstructive sleep apnea (adult) (pediatric) (principal); R40.0 Somnolence; Z99.89 Dependence on other enabling machines and devices | CPT/HCPCS: 99212 ==

== ENCOUNTER → 2022-10-26 20:30 | Outpatient (REF) | payer MEDICARE, MEDICAID, SELFPAY | LOC: HO.SL 20:30 | PROVIDERS: PCP Internal Medicine; Visit Provider Nurse Practitioner Family | DX: G47.33 Obstructive sleep apnea (adult) (pediatric) (principal) | CPT/HCPCS: 95810 ==

== ENCOUNTER → 2022-11-05 12:58 | Outpatient (BNVA) | payer MEDICARE, MEDICAID, SELFPAY | PROVIDERS: PCP Internal Medicine; Visit Provider Orthopaedic Surgery | DX: M24.811 Other specific joint derangements of right shoulder, not elsewhere classified (principal); M12.812 Other specific arthropathies, not elsewhere classified, left shoulder; E11.9 Type 2 diabetes mellitus without complications; E66.01 Morbid (severe) obesity due to excess calories; Z68.41 Body mass index [BMI] 40.0-44.9, adult | CPT/HCPCS: 20610; 99212; J1100 ==

== ENCOUNTER 2022-11-24 07:12 | Outpatient (REF) | payer MEDICARE, MEDICAID, SELFPAY ==
[2022-11-24 07:23] LABS: MANUAL DIFF FLAG NO
[2022-11-24 07:35] LABS: Basophils Absolute Auto 0.1 X10*3/uL (0.0-0.2); Basophils Percent Auto 0.6 % (0-2); Eosinophils Absolute Auto 0.2 X10*3/uL (0.0-0.4); Eosinophils Percent Auto 2.6 % (0-4); Hematocrit 41.1 % (37.0-47.0); Hemoglobin 13.5 g/dl (12.0-16.0); Imm Gran Abs Auto 0.05 X10*3/uL (0.00-0.03); Imm Gran Pct Auto 0.6 % (0.0-0.4); Lymphocytes Absolute Auto 2.2 X10*3/uL (1.2-4.9); Lymphocytes Percent Auto 28.5 % (20-40); Mean Corpuscular HGB Conc 32.8 g/dl (31.0-35.0); Mean Corpuscular Hemoglobin 27.4 pg (27.0-33.0); Mean Corpuscular Volume 83.5 fL (80.0-98.0); Mean Platelet Volume 9.2 fL (9.4-12.3); Monocytes Absolute Auto 0.6 X10*3/uL (0.1-1.2); Monocytes Percent Auto 8.2 % (2-11); Neutrophils Absolute Auto 4.7 x10*3/uL (2.0-8.3); Neutrophils Percent Auto 59.5 % (45-73); Platelet Count 256 X10*3/uL (160-400); Red Blood Count 4.92 X10*6/uL (4.20-5.50); Red Cell Distribution Width 14.5 % (11.0-16.0); White Blood Count 7.8 X10*3/uL (4.8-10.8)
[2022-11-24 08:02] LABS: Appearance Urine Clear; Color Urine Yellow; Glucose Urine UA Negative (Negative); Leukocyte Esterase Urine Negative (Negative); Nitrite Urine Negative (Negative); PH 6.5 (5.0-9.0); Specific Gravity - Urine 1.015 (1.005-1.025); Urine Blood Negative (Negative); Urine Ketones Negative (Negative); Urine Protein Negative (Neg-Trace)
[2022-11-24 08:02] LABS: Estimated Average Glucose 137 mg/dL; Hemoglobin A1c % 6.4 %
[2022-11-24 08:05] LABS: Alanine Aminotransferase 22 U/L (0-31); Albumin Level 3.7 g/dL (3.5-5.0); Alkaline Phosphatase 89 U/L (39-117); Anion Gap 13 (12-20); Aspartate Amino Transferase 26 U/L (5-31); Bilirubin Total 0.4 mg/dL (0.0-1.0); Blood Urea Nitrogen 21 mg/dL (9-16); Calcium 9.5 mg/dL (8.4-10.2); Carbon Dioxide 25 mmol/L (22-29); Chloride 106 mmol/L (96-108); Cholesterol 224 mg/dL; Estimated Glomerular Filt Rate > 60; Glucose Fasting 131 mg/dL (60-99); HDL Cholesterol 37 mg/dL; Sodium 140 mmol/L (135-145); Total Protein 7.1 g/dL (6.5-8.0); Triglycerides 493 mg/dL
[2022-11-24 08:24] LABS: TSH reflex Free T4 2.19 uIU/mL (0.32-4.0); Vitamin D 25-OH Total 32.4 ng/mL (>30)
[2022-11-24 08:27] LABS: Creatinine Urine 93.67 mg/dL; Microalbum/Creatinine Ratio Ur 50.1 ug/mg cr
== END 2022-11-24 07:13 | disposition home or self-care (01) ==
LOC: HO.LAB 07:12
PROVIDERS: PCP Internal Medicine; Visit Provider Internal Medicine
DX: R30.0 Dysuria (principal); E11.9 Type 2 diabetes mellitus without complications; I10 Essential (primary) hypertension; E55.9 Vitamin D deficiency, unspecified; E78.00 Pure hypercholesterolemia, unspecified
CPT/HCPCS: 36415; 80053; 80061; 81003; 82043; 82306; 83036; 84443; 85025

== ENCOUNTER 2022-12-01 08:56 | Outpatient (REF) | payer MEDICARE, MEDICAID, SELFPAY ==
--- NOTE | ~2022-12-01 | MM_ITS ---
EXAMINATION: MM SCREENING DIGITAL BREAST TOMOSYNTHESIS, BILATERAL CLINICAL INFORMATION: Screening. Asymptomatic. The lifetime risk of breast cancer based on the Tyrer-Cuzick Model is 9%. COMPARISON: Mammography: 11/25/2021, 11/07/2020, 08/03/2019 TECHNIQUE: Digital breast tomosynthesis is performed in both the craniocaudal and mediolateral oblique views along with computer-aided detection (CAD). Synthesized 2D images are generated from the tomosynthesis. FINDINGS: There are scattered areas of fibroglandular density (ACR BI-RADS breast composition Category b). There are no significant masses, abnormal calcifications, or other abnormalities. Parenchymal pattern is similar to prior studies. There is no developing density or architectural abnormality. The axilla and skin contours are unremarkable. No significant changes. MM/MM tomosynthesis screening BI IMPRESSION: No mammographic evidence of malignancy. ASSESSMENT: BI-RADS 1: Negative RECOMMENDATION: Routine annual mammography screening. This patient's information was entered into a reminder system with a target due date for their next mammogram.
== END 2022-12-01 08:57 | disposition home or self-care (01) ==
LOC: HO.MAMMO 08:56
PROVIDERS: PCP Internal Medicine; Visit Provider Internal Medicine
DX: Z12.31 Encounter for screening mammogram for malignant neoplasm of breast (principal)
CPT/HCPCS: 77063; 77067

== ENCOUNTER → 2022-12-08 10:30 | Outpatient (BNVA) | payer MEDICARE, MEDICAID, SELFPAY | PROVIDERS: PCP Internal Medicine; Visit Provider Nurse Practitioner Family | DX: R06.83 Snoring (principal) | CPT/HCPCS: 99212 ==

== ENCOUNTER 2023-02-05 06:50 | Outpatient (REF) | payer MEDICARE, MEDICAID, SELFPAY ==
[2023-02-05 08:00] LABS: Cholesterol 229 mg/dL; HDL Cholesterol 38 mg/dL; Triglycerides 541 mg/dL
== END 2023-02-05 06:51 | disposition home or self-care (01) ==
LOC: HO.LAB 06:50
PROVIDERS: Absent Provider Nurse Practitioner Family; PCP Internal Medicine; Visit Provider Internal Medicine
DX: E78.2 Mixed hyperlipidemia (principal)
CPT/HCPCS: 36415; 80061

== ENCOUNTER 2023-05-08 08:07 | Outpatient (REF) | payer MEDICARE, MEDICAID, SELFPAY ==
[2023-05-08 08:55] LABS: MANUAL DIFF FLAG NO
[2023-05-08 09:15] LABS: Basophils Absolute Auto 0.1 X10*3/uL (0.0-0.2); Basophils Percent Auto 0.7 % (0-2); Eosinophils Absolute Auto 0.1 X10*3/uL (0.0-0.4); Eosinophils Percent Auto 1.6 % (0-4); Hematocrit 42.8 % (37.0-47.0); Hemoglobin 13.6 g/dl (12.0-16.0); Imm Gran Abs Auto 0.04 X10*3/uL (0.00-0.03); Imm Gran Pct Auto 0.5 % (0.0-0.4); Lymphocytes Absolute Auto 2.4 X10*3/uL (1.2-4.9); Lymphocytes Percent Auto 29.5 % (20-40); Mean Corpuscular HGB Conc 31.8 g/dl (31.0-35.0); Mean Corpuscular Hemoglobin 26.9 pg (27.0-33.0); Mean Corpuscular Volume 84.8 fL (80.0-98.0); Mean Platelet Volume 9.6 fL (9.4-12.3); Monocytes Absolute Auto 0.6 X10*3/uL (0.1-1.2); Monocytes Percent Auto 7.9 % (2-11); Neutrophils Absolute Auto 4.8 x10*3/uL (2.0-8.3); Neutrophils Percent Auto 59.8 % (45-73); Platelet Count 292 X10*3/uL (160-400); Red Blood Count 5.05 X10*6/uL (4.20-5.50); Red Cell Distribution Width 15.1 % (11.0-16.0); White Blood Count 8.1 X10*3/uL (4.8-10.8)
[2023-05-08 09:17] LABS: Estimated Average Glucose 131 mg/dL; Hemoglobin A1c % 6.2 %
[2023-05-08 09:43] LABS: Alanine Aminotransferase 24 U/L (0-31); Albumin Level 3.8 g/dL (3.5-5.0); Alkaline Phosphatase 57 U/L (39-117); Anion Gap 13 (12-20); Aspartate Amino Transferase 19 U/L (5-31); Bilirubin Total 0.4 mg/dL (0.0-1.0); Blood Urea Nitrogen 30 mg/dL (9-16); Calcium 10.6 mg/dL (8.4-10.2); Carbon Dioxide 29 mmol/L (22-29); Chloride 105 mmol/L (96-108); Cholesterol 158 mg/dL; Estimated Glomerular Filt Rate > 60; Glucose Fasting 126 mg/dL (60-99); HDL Cholesterol 43 mg/dL; LDL Cholesterol Calculated 77 mg/dl; Potassium 4.6 mmol/L (3.3-5.1); Sodium 142 mmol/L (135-145); Total Protein 7.7 g/dL (6.5-8.0); Triglycerides 191 mg/dL
[2023-05-08 09:58] LABS: TSH reflex Free T4 1.45 uIU/mL (0.32-4.0); Vitamin D 25-OH Total 42.2 ng/mL (>30)
[2023-05-08 10:24] LABS: Appearance Urine Clear; Color Urine Yellow; Glucose Urine UA Negative (Negative); Leukocyte Esterase Urine Trace (Negative); Nitrite Urine Negative (Negative); PH 6.5 (5.0-9.0); UMIC TRIGGER UACC YES; Urine Blood Negative (Negative); Urine Ketones Negative (Negative); Urine Protein Negative (Neg-Trace)
[2023-05-08 10:29] LABS: Bacteria Urine None Seen (None Seen); Hyaline Casts Urine 0-2 /LPF (0-2); RBC Urine 0-2 /HPF (0-2); WBC Urine 0-5 /HPF (0-5)
[2023-05-08 10:42] LABS: Creatinine Urine 78.42 mg/dL; Microalbum/Creatinine Ratio Ur 12.7 ug/mg cr
== END 2023-05-08 08:08 | disposition home or self-care (01) ==
LOC: HO.LAB 08:07
PROVIDERS: PCP Internal Medicine; Visit Provider Internal Medicine
DX: E55.9 Vitamin D deficiency, unspecified (principal); E11.9 Type 2 diabetes mellitus without complications; E78.00 Pure hypercholesterolemia, unspecified; I10 Essential (primary) hypertension
CPT/HCPCS: 36415; 80053; 80061; 81001; 82043; 82306; 83036; 84443; 85025

== ENCOUNTER 2023-08-18 06:23 | Outpatient (REF) | payer MEDICARE, MEDICAID, SELFPAY ==
[2023-08-18 06:33] LABS: MANUAL DIFF FLAG NO
[2023-08-18 07:22] LABS: Basophils Absolute Auto 0.1 X10*3/uL (0.0-0.2); Basophils Percent Auto 0.5 % (0-2); Eosinophils Absolute Auto 0.2 X10*3/uL (0.0-0.4); Hematocrit 40.1 % (37.0-47.0); Hemoglobin 12.6 g/dl (12.0-16.0); Imm Gran Abs Auto 0.05 X10*3/uL (0.00-0.03); Imm Gran Pct Auto 0.5 % (0.0-0.4); Lymphocytes Absolute Auto 2.4 X10*3/uL (1.2-4.9); Mean Corpuscular HGB Conc 31.4 g/dl (31.0-35.0); Mean Corpuscular Hemoglobin 27.4 pg (27.0-33.0); Mean Corpuscular Volume 87.2 fL (80.0-98.0); Mean Platelet Volume 9.7 fL (9.4-12.3); Monocytes Absolute Auto 0.6 X10*3/uL (0.1-1.2); Monocytes Percent Auto 6.5 % (2-11); Neutrophils Absolute Auto 6.6 x10*3/uL (2.0-8.3); Neutrophils Percent Auto 66.5 % (45-73); Platelet Count 323 X10*3/uL (160-400); Red Cell Distribution Width 14.1 % (11.0-16.0); White Blood Count 9.9 X10*3/uL (4.8-10.8)
[2023-08-18 07:36] LABS: Estimated Average Glucose 131 mg/dL; Hemoglobin A1c % 6.2 % (<6.0)
[2023-08-18 08:12] LABS: Alanine Aminotransferase 21 U/L (0-31); Albumin Level 3.8 g/dL (3.5-5.0); Alkaline Phosphatase 51 U/L (39-117); Anion Gap 14 (12-20); Aspartate Amino Transferase 19 U/L (5-31); Bilirubin Total 0.4 mg/dL (0.0-1.0); Blood Urea Nitrogen 27 mg/dL (9-16); Calcium 10.3 mg/dL (8.4-10.2); Carbon Dioxide 26 mmol/L (22-29); Chloride 106 mmol/L (96-108); Cholesterol 161 mg/dL (<200); Estimated Glomerular Filt Rate > 60; Glucose Fasting 112 mg/dL (60-99); HDL Cholesterol 42 mg/dL (>40); LDL Cholesterol Calculated 75 mg/dL (<100); Potassium 4.5 mmol/L (3.3-5.1); Sodium 141 mmol/L (135-145); Total Protein 7.6 g/dL (6.5-8.0); Triglycerides 224 mg/dL (<150)
[2023-08-18 08:31] LABS: TSH reflex Free T4 2.21 uIU/mL (0.32-4.0); Vitamin D 25-OH Total 38.8 ng/mL (>30)
[2023-08-18 08:36] LABS: Folate 14.8 ng/mL (> or = 4.0); Vitamin B12 538 pg/mL (200-900)
[2023-08-18 09:39] LABS: Appearance Urine Clear; Color Urine Yellow; Glucose Urine UA Negative (Negative); Leukocyte Esterase Urine Small (1+) (Negative); Nitrite Urine Negative (Negative); PH 6.5 (5.0-9.0); UMIC TRIGGER UACC YES; Urine Blood Negative (Negative); Urine Ketones Negative (Negative); Urine Protein Negative (Neg-Trace)
[2023-08-18 09:52] LABS: Creatinine Urine 72.21 mg/dL; Microalbumin Urine < 5.0 mg/L
[2023-08-18 10:36] LABS: Bacteria Urine Trace (None Seen); Hyaline Casts Urine 0-2 /LPF (0-2); RBC Urine 0-2 /HPF (0-2); UACC Culture Trigger YES; WBC Urine 0-5 /HPF (0-5)
== END 2023-08-18 06:24 | disposition home or self-care (01) ==
LOC: HO.XRAY 06:23
PROVIDERS: PCP Internal Medicine; Visit Provider Internal Medicine
DX: M17.10 Unilateral primary osteoarthritis, unspecified knee (principal); I10 Essential (primary) hypertension; E78.00 Pure hypercholesterolemia, unspecified; E11.9 Type 2 diabetes mellitus without complications; E55.9 Vitamin D deficiency, unspecified; E53.8 Deficiency of other specified B group vitamins; R30.0 Dysuria
CPT/HCPCS: 36415; 73564; 80053; 80061; 81001; 82306; 82570; 82607; 82746; 83036; 84443; 85025; 87086

== ENCOUNTER 2023-08-20 09:50 | Outpatient (AMB) | payer MEDICARE, MEDICAID, SELFPAY ==
[2023-08-20 09:58] VITALS: BP 122/80; PULSE 71; O2SAT 97; BMI 39.0
--- NOTE | 2023-08-20 09:58 | MHC.PC.OV ---
Vital Signs 08/20/23 09:58 Height 5 ft 4 in Weight 227 lb 4 oz BMI 39.0 BP 122/80 Blood Pressure Location Lt brachial Position Sitting Pulse 71 Pulse Source Pulse Oximeter Pulse Oximetry (%) 97 Oxygen Delivery Method Room Air Intake Visit Reasons: hyperlipidemia, HTN, DM, OA Career And Guidance Counselor Required: No Accompanied by: Self / Same As Patient Allergies No Known Allergies Allergy (Verified 08/20/23 10:35) Medication List - Last Reconciled 08/20/23 by Anthony Lui MD acetaminophen 500 mg PO Q6H PRN aspirin 81 mg PO QAM 90 days atorvastatin 20 mg PO BEDTIME 90 days blood sugar diagnostic (FreeStyle Lite Strips) 1 strip miscellaneous DAILY ergocalciferol (vitamin D2) (Vitamin D2) 1,250 mcg PO QWEEK fenofibrate 160 mg PO DAILY 90 days fluticasone propionate 50 mcg/actuation 2 sprays intranasal DAILY PRN 30 days folic acid 1 mg PO QAM furosemide 40 mg PO DAILY hydrochlorothiazide 25 mg PO QAM ibuprofen 800 mg PO Q8H PRN lancets (TRUEplus Lancets) USE TO TEST BLOOD SUGAR FOUR TIMES DAILY metformin 1,000 mg PO BID metoprolol tartrate 50 mg PO BID miscellaneous medical supply 1 ea miscellaneous DAILY miscellaneous medical supply 1 ea miscellaneous DAILY omeprazole 20 mg PO QAM potassium chloride ER 10 mEq PO QAM sertraline 50 mg PO DAILY 30 days sitagliptin phosphate (Januvia) 100 mg PO QAM valsartan 320 mg PO QAM zolpidem 5 mg PO BEDTIME PRN 30 days Tobacco use date assessed: 08/20/23 Fall risk assessment: No Falls in past year Last assessed Fall Risk: 08/20/23 Dental Screening Dental Screen Date: 08/20/23 Did you have a dental visit in the last 12 months?: No Did you have a dental problem in the last 6 months where you did not have access to dental care?: No Was dental information given to patient?: Patient has dentist HPI hyperlipidemia, HTN, DM, OA HPI Details Patient comes in today for her follow up visit States that she feels okay except for increasing bilateral knee pain lately; would like to know how her knee x-rays done a couple of days ago came out Also relates (+) fatigue lately as she has been having trouble sleeping at night recently due to increased allergy symptoms (runny nose, itchy throat) that seem to bother her more at night time She denies any fever or sore throat She denies any headaches or dizziness Denies any chest pains, no SOB No nausea/vomiting, no abdominal pain No change in bowel habits noted Had her follow up labs done a couple of days ago - to discuss her results [facility] Medical History (Updated 08/20/23 @ 11:00 by Anthony Lui MD) Allergic rhinitis Primary osteoarthritis of knees, bilateral Internal derangement of right shoulder Morbid obesity with BMI of 40.0-44.9, adult Anxiety Insomnia Overactive bladder Varicose veins of leg with edema Obstructive sleep apnea Constipation GERD without esophagitis Vitamin D deficiency Inflammatory polyarthropathy Diabetes mellitus Benign essential hypertension Surgical History History of surgery History of cardiac catheterization History of cataract surgery Family History Father Heart disease CVD (cardiovascular disease) Mother CVD (cardiovascular disease) Diabetes Heart disease Brother Mental problem Social History Household Members: None Housing: Apartment Alcohol intake: never Patient Tobacco Use Status: Never used Tobacco e-Cigarette/Vaping Use: Never Used Second Hand Smoke Exposure: No service: No Current occupational status: disabled Cognitive needs: No Hearing needs: No Vision needs: Yes Questionnaire PHQ-9 Over the last 2 weeks, how often have you been bothered by any of the following problems? 1. Little interest or pleasure in doing things: several days 2. Feeling down, depressed, or hopeless: several days 3. Trouble falling or staying asleep, or sleeping too much: several days 4. Feeling tired or having little energy: not at all 5. Poor appetite or overeating: not at all 6. Feeling bad about yourself - or that you are a failure or have let yourself or your family down: not at all 7. Trouble concentrating on things, such as reading the newspaper or watching television: not at all 8. Moving or speaking so slowly that other people could have noticed. Or the opposite - being so fidgety or restless that you have been moving around a lot more than usual: not at all 9. Thoughts that you would be better off or of hurting yourself in some way: not at all Total score: 3 Depression Screening Interpretation: Negative Depression Screening Done: Yes 07994 - PHQ-9 Billing: Yes Source: Developed by Drs. Kelvin Cates, Candice Bryant, Keith Nevarez and colleagues, with an educational kailyn from [employer]. Thrive Questionnaire Date Thrive assessed: 08/20/23 I am a: Patient What is your living situation today?: I have a steady place to live Within the past 12 months, did the food you bought not last and you didn't have the money to get more?: Never true Within the past 12 months, did you worry whether your food would run out before you got money to buy more?: Never true Do you have trouble paying for medicines?: No Do you have trouble getting transportation to medical appointments?: No Do you have trouble paying your heating and electricity bill?: No Do you have trouble taking care of your child, family member or friend?: No Do you have trouble with day-to-day activities such as bathing, preparing meals, shopping, managing finances, etc.?: No Are you currently unemployed and looking for a job?: No Are you interested in more education?: No Please select the resources that you would like help with: None Currently or been in a relationship where the following occur: no concerns reported AUDIT C Alcohol Use Questionnaire (AUDIT-C) 1. How often do you have a drink containing alcohol?: Never 3. How often do you have six or more drinks on one occasion?: Never Total Score: 0 Score Reviewed/Action Taken: Yes ELIESER-7 AMB Questionnaire ELIESER-7 Date ELIESER - 7 assessed: 08/20/23 Feeling nervous, anxious, or on edge: 1 = Several days Not being able to stop or control worryin = Several days Worrying too much about different things: 1 = Several days Trouble relaxin = Not at all Being so restless that it is hard to sit still: 0 = Not at all Becoming easily annoyed or irritable: 0 = Not at all Feeling afraid as if something awful might happen: 0 = Not at all Total ELIESER-7 score (0-4 normal; 5-9 mild; 10-14 moderate; 15-21 severe): 3 Source: Developed by Drs. Kelvin Cates, Candice Bryant, Keith Nevarez and colleagues, with an educational kailyn from [employer]. Review of Systems Const Denies chills, Reports difficulty sleeping (lately - thinks this is due to her increased allergy symptoms lately), Reports fatigue, Denies fever(s) and Denies headache(s) ENT Denies dysphagia, Denies dizziness, Denies otalgia, Denies headache(s), Reports neck pain, Denies odynophagia and Denies sore throat Card Denies chest pain, Denies palpitations and Denies dyspnea Resp Denies cough and Denies dyspnea GI Denies abdominal pain, Denies constipation, Denies dysphagia, Denies heartburn, Denies diarrhea, Denies nausea, Denies odynophagia and Denies vomiting Denies difficulty voiding, Denies nocturia and Denies dysuria Musc Reports back pain, Reports arthralgias (multiple joints but increasing bilateral knee pain lately) and Reports neck pain Skin/Breast Denies rash Neuro Denies dizziness and Denies headache(s) Endo Reports fatigue and Denies palpitations Aller/Immun Reports seasonal rhinorrhea (worse at night lately) Physical exam (Primary Care) Vital Signs: Last Vital Signs Pulse 71 08/20/23 09:58 BP 122/80 08/20/23 09:58 Pulse Ox 97 08/20/23 09:58 Oxygen Delivery Method Room Air 08/20/23 09:58 BMI result Body Mass Index 39.0 Tobacco/Smoking Status: Tobacco use Status Tobacco use date assessed 08/20/23 08/20/23 10:01 Patient Tobacco Use Status Never used Tobacco 08/20/23 10:01 e-Cigarette/Vaping Use Never Used 08/20/23 10:01 PHQ-9: PHQ-9 Score PHQ-9: Total score 3 08/20/23 10:07 Depression Screening Interpretation: Negative Thrive Assessment: Date of Thrive Assessment Date Thrive assessed 08/20/23 08/20/23 10:01 Currently or been in a relationship where the following occur: no concerns reported Const General: no acute distress and alert HENMT Ears: TM's normal bilaterally and EAC's normal Throat: Yes posterior oropharynx normal and Yes tonsils normal (no TP congestion noted) Neck Neck: Yes no lymphadenopathy and Yes supple Resp Auscultation: clear to auscultation bilaterally, no rales and no wheezes Cardio Rate: regular rate Rhythm: regular rhythm Heart sounds: no murmurs GI Palpation (GI): Soft to palpation and nontender Auscultation: normal bowel sounds Back/Spine/Pelvis Cervical Spine: Cervical spine tenderness Thoracic/Lumbar Spine: thoracic spinal tenderness and lumbar spinal tenderness Skin Rashes: no rashes Extrem Other: (+) prominent varicose veins over both lower extremities General: No clubbing, No cyanosis and Yes edema ((+) chronic 2+ bilateral lower extremity edema with varicosities) Right upper extremity: shoulder/upper arm Details: tenderness Left upper extremity: shoulder/upper arm Details: tenderness Right lower extremity: knee Details: tenderness and swelling (mild) Left lower extremity: knee Details: tenderness Location: of the medial joint line and swelling (mild) and ankle Details: tenderness Location: of the lateral malleolus and swelling Details: laterally Results Reviewed Results Reviewed: Laboratory Tests 08/18/23 08/18/23 08/18/23 06:30 06:32 06:32 WBC 9.9 Hgb 12.6 Hct 40.1 Plt Count 323 Sodium 141 Potassium 4.5 Creatinine 0.84 Estimated GFR > 60 Fasting Glucose 112 H Hemoglobin A1c % 6.2 H Calcium 10.3 H AST 19 ALT 21 Triglycerides 224 H Cholesterol 161 LDL Cholesterol, Calc 75 HDL Cholesterol 42 Vitamin B12 538 25-OH Vitamin D Total 38.8 TSH 2.21 Ur Specific [place] 1.020 Urine Protein Negative Urine Glucose (UA) Negative Urine Blood Negative Assessment and Plan Assessment & Plan (1) Primary osteoarthritis of knees, bilateral: Code(s): M17.0 - Bilateral primary osteoarthritis of knee Plan: X-rays of both knees done a couple of days ago revealed (+) moderate to severe OA changes in both knees, with slight progression from previous Will refer patient to orthopedics for further evaluation and management Patient is very hesitant about undergoing knee replacement surgery - have advised her to see orthopedics first and she can have a more extensive discussion with them about this and how the surgery is done, after which she can then make a decision on what she wants to do (2) Mixed hyperlipidemia: Code(s): E78.2 - Mixed hyperlipidemia Plan: Results of her labs done a couple of days ago reviewed and discussed with patient - her serum triglyceride level has increased slightly from previous but all of her other numbers are within acceptable range Reinforced low cholesterol diet Continue Atorvastatin 20 mg QD and Fenofibrate 160 mg QD Will recheck her labs and fasting lipids in 3 months for follow-up (3) Diabetes mellitus: Code(s): E11.9 - Type 2 diabetes mellitus without complications Qualifiers: Diabetes mellitus type: type 2 Diabetes mellitus long-term insulin use: without remote computer terminal operator use Diabetes mellitus complication status: without complication Qualified Code(s): E11.9 - Type 2 diabetes mellitus without complications Plan: HgbA1c was unchanged at 6.2% on her labs done a couple of days ago (was also at 6.2% 3 months ago) - goal is < 7.0% Reinforced diabetic diet Continue Metformin 1000 mg BID and Januvia 100 mg QD (4) Benign essential hypertension: Code(s): I10 - Essential (primary) hypertension Plan: Reinforced low-sodium diet - goal is systolic BP of at least 130 mm or less Continue Valsartan 320 mg QD, Metoprolol Tartrate 50 mg BID and HCTZ 25 mg QD; she is also on Furosemide 40 mg once a day in AM but this is more for her lower extremity edema (5) Arthritis of left shoulder region: Code(s): M19.012 - Primary osteoarthritis, left shoulder Plan: MRI of the left shoulder done a few months ago revealed a complete, full-thickness tear of the supraspinatus tendon Has been advised by orthopedics that she may require surgery, especially if symptoms progress Follow up with orthopedics as scheduled (6) Inflammatory polyarthropathy: Code(s): M06.4 - Inflammatory polyarthropathy Plan: Patient used to take Methotrexate and follow-up with Rheumatology but has not seen them for a few years now - states that her joint pains have been well-controlled lately Continue Acetaminophen 500 mg every 6 hours as needed and Cyclobenzaprine 5 mg twice a day as needed Will consider referring to [facility] Rheumatology for further evaluation and management if her symptoms get worse (7) Varicose veins of leg with edema: Code(s): I83.899 - Varicose veins of unspecified lower extremity with other complications Qualifiers: Laterality: bilateral Qualified Code(s): I83.893 - Varicose veins of bilateral lower extremities with other complications Plan: S/P EVLT with Dr. Jj a few months ago Follow up with vascular surgery as scheduled (8) Vitamin D deficiency: Code(s): E55.9 - Vitamin D deficiency, unspecified Plan: Continue Vitamin D2 90348 units once a week (9) GERD without esophagitis: Code(s): K21.9 - Gastro-esophageal reflux disease without esophagitis Plan: Dietary restrictions reinforced Continue Omeprazole 20 mg QD (10) Constipation: Code(s): K59.00 - Constipation, unspecified Qualifiers: Constipation type: unspecified constipation type Qualified Code(s): K59.00 - Constipation, unspecified Plan: Encouraged again on increased oral fluids and dietary fiber Continue MiraLax 17 g once a day and Senna 8.6 mg 1 tablet once a day as needed (11) Allergic rhinitis: Code(s): J30.9 - Allergic rhinitis, unspecified Qualifiers: Allergic rhinitis trigger: unspecified Allergic rhinitis seasonality: unspecified Qualified Code(s): J30.9 - Allergic rhinitis, unspecified Plan: Will start her on Cetirizine 10 mg Q PM - advised to try taking this about an hour before her bedtime since her current allergy symptoms appear to be bothering her more at night (12) Obstructive sleep apnea: Code(s): G47.33 - Obstructive sleep apnea (adult) (pediatric) Plan: Has an AutoPAP / CPAP device but now admits that she has not used it in a few years as it is not comfortable to keep on Follow up with Sleep Medicine as scheduled Has been advised to try sleeping on her side to help reduce snoring (13) Overactive bladder: Code(s): N32.81 - Overactive bladder Plan: Follow up with Urology as scheduled (14) Insomnia: Code(s): G47.00 - Insomnia, unspecified Qualifiers: Insomnia type: unspecified Qualified Code(s): G47.00 - Insomnia, unspecified Plan: Sleep hygiene reinforced Continue Zolpidem 5 mg Q HS PRN Was on Trazodone 100 mg once a day at bedtime but feels that the Rx makes her dizzy - Trazodone was then discontinued (15) Anxiety: Code(s): F41.9 - Anxiety disorder, unspecified Plan: Continue Lorazepam 1 mg BID as needed and Sertraline 50 mg QD (16) Morbid obesity with BMI of 40.0-44.9, adult: Code(s): E66.01 - Morbid (severe) obesity due to excess calories; Z68.41 - Body mass index [BMI] 40.0-44.9, adult Plan: Reinforced diet/exercise as tolerated/lose weight Plan Follow up in 3 months Orders: Orders Complete Blood Count Auto Diff 3 Months I10 - Essential (primary) hypertension Lipid Panel 3 Months E78.00 - Pure hypercholesterolemia, unspecified Comprehensive [place]. Panel Fast 3 Months E78.00 - Pure hypercholesterolemia, unspecified Hemoglobin A1c 3 Months E11.9 - Type 2 diabetes mellitus without complications TSH reflex Free T4 3 Months E78.00 - Pure hypercholesterolemia, unspecified Microalbumin, Random (w Creat) 3 Months E11.9 - Type 2 diabetes mellitus without complications UA CC w/rflx Micro + Cult 3 Months R30.0 - Dysuria Vitamin D 25-OH Total 3 Months E55.9 - Vitamin D deficiency, unspecified Referrals Orthopedics Referral M17.0 - Bilateral primary osteoarthritis of knee Medications: New cetirizine 10 mg PO BEDTIME 90 days PRN 90 tabs 1RF allergy symptoms Coding Level of Care Code Est Pt Level 4 (21735) Diagnoses Primary osteoarthritis of knees, bilateral M17.0 Mixed hyperlipidemia E78.2 Type 2 diabetes mellitus without complication, without long-term current use of insulin E11.9 Diabetes mellitus type: type 2 Diabetes mellitus remote computer terminal operator insulin use: without remote computer terminal operator use Diabetes mellitus complication status: without complication Benign essential hypertension I10 Arthritis of left shoulder region M19.012 Inflammatory polyarthropathy M06.4 Varicose veins of both legs with edema I83.893 Laterality: bilateral Vitamin D deficiency E55.9 GERD without esophagitis K21.9 Constipation, unspecified constipation type K59.00 Constipation type: unspecified constipation type Allergic rhinitis, unspecified seasonality, unspecified trigger J30.9 Allergic rhinitis trigger: unspecified Allergic rhinitis seasonality: unspecified Obstructive sleep apnea G47.33 Overactive bladder N32.81 Insomnia, unspecified type G47.00 Insomnia type: unspecified Anxiety F41.9 Morbid obesity with BMI of 40.0-44.9, adult E66.01; Z68.41
== END 2023-08-20 10:50 | disposition home or self-care (01) ==
PROVIDERS: PCP Internal Medicine; Visit Provider Internal Medicine
DX: E11.9 Type 2 diabetes mellitus without complications (principal); E66.01 Morbid (severe) obesity due to excess calories; Z68.41 Body mass index [BMI] 40.0-44.9, adult; M06.4 Inflammatory polyarthropathy; M17.0 Bilateral primary osteoarthritis of knee; E78.2 Mixed hyperlipidemia; I10 Essential (primary) hypertension; I83.893 Varicose veins of bilateral lower extremities with other complications; M19.012 Primary osteoarthritis, left shoulder; E55.9 Vitamin D deficiency, unspecified; K21.9 Gastro-esophageal reflux disease without esophagitis; K59.00 Constipation, unspecified
CPT/HCPCS: 99214

== ENCOUNTER 2023-12-14 07:19 | Outpatient (REF) | payer MEDICARE, MEDICAID, SELFPAY ==
[2023-12-14 07:39] LABS: MANUAL DIFF FLAG NO
[2023-12-14 07:59] LABS: Basophils Absolute Auto 0.1 X10*3/uL (0.0-0.2); Basophils Percent Auto 0.6 % (0-2); Eosinophils Absolute Auto 0.1 X10*3/uL (0.0-0.4); Eosinophils Percent Auto 1.6 % (0-4); Hematocrit 43.5 % (37.0-47.0); Hemoglobin 13.9 g/dl (12.0-16.0); Imm Gran Abs Auto 0.04 X10*3/uL (0.00-0.03); Imm Gran Pct Auto 0.5 % (0.0-0.4); Lymphocytes Absolute Auto 2.2 X10*3/uL (1.2-4.9); Lymphocytes Percent Auto 26.3 % (20-40); Mean Corpuscular Hemoglobin 27.5 pg (27.0-33.0); Mean Platelet Volume 9.8 fL (9.4-12.3); Monocytes Absolute Auto 0.6 X10*3/uL (0.1-1.2); Monocytes Percent Auto 6.8 % (2-11); Neutrophils Absolute Auto 5.5 x10*3/uL (2.0-8.3); Neutrophils Percent Auto 64.2 % (45-73); Platelet Count 303 X10*3/uL (160-400); Red Blood Count 5.06 X10*6/uL (4.20-5.50); Red Cell Distribution Width 14.3 % (11.0-16.0); White Blood Count 8.5 X10*3/uL (4.8-10.8)
[2023-12-14 08:09] LABS: Estimated Average Glucose 131 mg/dL; Hemoglobin A1c % 6.2 % (<6.0)
[2023-12-14 08:25] LABS: Alanine Aminotransferase 19 U/L (0-31); Albumin Level 3.8 g/dL (3.5-5.0); Alkaline Phosphatase 63 U/L (39-117); Anion Gap 13 (12-20); Aspartate Amino Transferase 17 U/L (5-31); Bilirubin Total 0.3 mg/dL (0.0-1.0); Blood Urea Nitrogen 27 mg/dL (9-16); Calcium 10.2 mg/dL (8.4-10.2); Carbon Dioxide 26 mmol/L (22-29); Chloride 105 mmol/L (96-108); Cholesterol 139 mg/dL (<200); Estimated Glomerular Filt Rate > 60; Glucose Fasting 116 mg/dL (60-99); HDL Cholesterol 40 mg/dL (>40); LDL Cholesterol Calculated 52 mg/dL (<100); Sodium 140 mmol/L (135-145); Total Protein 7.6 g/dL (6.5-8.0); Triglycerides 238 mg/dL (<150)
[2023-12-14 08:31] LABS: TSH reflex Free T4 1.34 uIU/mL (0.32-4.0); Vitamin D 25-OH Total 34.4 ng/mL (>30)
[2023-12-14 08:55] LABS: Appearance Urine Clear; Color Urine Yellow; Glucose Urine UA Negative (Negative); Leukocyte Esterase Urine Trace (Negative); Nitrite Urine Negative (Negative); UMIC TRIGGER UACC YES; Urine Blood Negative (Negative); Urine Ketones Negative (Negative); Urine Protein Negative (Neg-Trace)
[2023-12-14 09:08] LABS: Bacteria Urine Trace (None Seen); Hyaline Casts Urine 0-2 /LPF (0-2); RBC Urine 0-2 /HPF (0-2); Squamous Epithelial Cell Urine 0-2 /HPF (0-2); UACC Culture Trigger YES; WBC Urine 21-50 /HPF (0-5)
[2023-12-14 09:29] LABS: Creatinine Urine 91.77 mg/dL; Microalbum/Creatinine Ratio Ur 16.3 ug/mg cr (<30)
== END 2023-12-14 07:20 | disposition home or self-care (01) ==
LOC: HO.LAB 07:19
PROVIDERS: PCP Internal Medicine; Visit Provider Internal Medicine
DX: I10 Essential (primary) hypertension (principal); E11.9 Type 2 diabetes mellitus without complications; E78.00 Pure hypercholesterolemia, unspecified; E55.9 Vitamin D deficiency, unspecified; R30.0 Dysuria
CPT/HCPCS: 36415; 80053; 80061; 81001; 82043; 82306; 82570; 83036; 84443; 85025; 87086; 87088; 87186

== ENCOUNTER 2024-01-07 09:04 | Outpatient (REF) | payer MEDICARE, MEDICAID, SELFPAY ==
--- NOTE | ~2024-01-07 | XR_ITS ---
EXAMINATION: XR KNEE AP STANDING, BILATERAL CLINICAL INFORMATION: Pain in unspecified knee. COMPARISON: Bilateral knees of 08/18/2023. TECHNIQUE: AP bilateral standing view of the knees was obtained. FINDINGS: The bones are diffusely demineralized. RIGHT KNEE: Redemonstration of advanced degenerative changes in the medial compartment with joint space narrowing and medial marginal osteophytes. Small lateral marginal osteophytes. Abundant scattered calcifications in the soft tissues. LEFT KNEE: Redemonstration of advanced degenerative changes with severe narrowing of the lateral compartment and genu valgus. Lateral and marginal osteophytes. XR/XR knee standing BI IMPRESSION: Severe degenerative changes on the standing view of bilateral knees.
== END 2024-01-07 09:05 | disposition home or self-care (01) ==
LOC: HO.HOSX 09:04
PROVIDERS: Visit Provider Physician Assistant
DX: M17.0 Bilateral primary osteoarthritis of knee (principal); E11.9 Type 2 diabetes mellitus without complications
CPT/HCPCS: 20610; 73565; 99212; J0665; J1100

== ENCOUNTER 2024-01-07 11:29 | Outpatient (AMB) | payer MEDICARE, MEDICAID, SELFPAY ==
--- NOTE | 2024-01-07 11:41 | MHC.OFFVIS ---
Intake Intake Visit Reasons: NProblem-B/L knee pain OA Intake Note: Barbie is a 67 year old female presents today for a new problem visit with complaints of bilateral knee pain. Patient reports that she has had pain for quite some time now, left is worse than the right. She would like to have injection in the left knee Allergies No Known Allergies Allergy (Verified 08/20/23 10:35) HPI NProblem-B/L knee pain OA HPI Details Barbie is a 68 year old Diabetic woman who presents with new complaints of bilateral knee pain, L>R. She complains of pain with daily activity, which has been present for several years. She says her pain is worse in her left knee. She was told by her PCP she had bilateral knee OA, and wanted more information regarding surgery or other treatment options. She would like an injection in her left knee today if possible. Her most recent HgA1c was 6.2% on 12/14/23. She describes difficulty walking even short distances. She describes lateral sided right knee pain. SHe has had injections in the past. She does not want to have surgery now but understands that this may be in her future. [facility] Medical History (Updated 08/20/23 @ 11:00 by Anthony Lui MD) Allergic rhinitis Primary osteoarthritis of knees, bilateral Internal derangement of right shoulder Morbid obesity with BMI of 40.0-44.9, adult Anxiety Insomnia Overactive bladder Varicose veins of leg with edema Obstructive sleep apnea Constipation GERD without esophagitis Vitamin D deficiency Inflammatory polyarthropathy Diabetes mellitus Benign essential hypertension Surgical History History of surgery History of cardiac catheterization History of cataract surgery Family History Father Heart disease CVD (cardiovascular disease) Mother CVD (cardiovascular disease) Diabetes Heart disease Brother Mental problem Social History Household Members: None Housing: Apartment Alcohol intake: never Patient Tobacco Use Status: Never used Tobacco e-Cigarette/Vaping Use: Never Used Second Hand Smoke Exposure: No service: No Current occupational status: disabled Cognitive needs: No Hearing needs: No Vision needs: Yes Review of Systems Const All systems reviewed & are unremarkable except as noted in HPI and below Physical Exam Const General: no acute distress, alert and awake Orientation/consciousness: patient oriented x3 HEENT Head: Yes normocephalic and Yes atraumatic Mouth: moist mucous membranes Eyes General: appearance normal, both eyes and all related structures EOM: EOMs intact bilaterally Chest Other: no audible wheezing. Resp Other: No audible wheezing Effort & Inspection: normal respiratory effort and able to speak in complete sentences Cardio Other: Radial pulse palpable with no rythmic abnormalities Jugular venous distension: no JVD Back/Spine/Pelvis Cervical Spine: normal cervical lordosis Skin General skin exam: turgor normal Rashes: no rashes Neuro General: patient oriented x3 Extrem Other: Left knee with valgus malalignement and ttp lateral joint lien nad antalgic gait Psych Appearance: grossly normal Mental Status: mental status grossly normal Speech and movement: Normal speech and movement present Affect: normal affect Attitude: cooperative Office Procedures Joint Injection/Drain Joint Injection/Drain Details: Injected 1 mL of Decadron and 3 mL 1% lidocaine and 3 mL of 0.25% Marcaine. Site was prepped using aseptic technique. Patient tolerated the procedure well. Primary Site: left knee Approach Used: anterolateral Coding 46397 - Large joint Procedure code (CPT) selection complete Results Reviewed Results Reviewed: I personally reviewed relevant radiographs. Severe left knee valgus pattern OA Assessment & Plan Assessment & Plan (1) Primary osteoarthritis of knees, bilateral: Code(s): M17.0 - Bilateral primary osteoarthritis of knee Plan: 68 yo F with severe bilateral knee OA left > right. I injected her left knee today. I explained the hyperglycemic effects of steroids. Her BMI is under 40 and given her valgus deformity and her age and dysfunction I recommend TKA. She would like to discuss again in 3 months. (2) Diabetes mellitus: Code(s): E11.9 - Type 2 diabetes mellitus without complications Qualifiers: Diabetes mellitus type: type 2 Diabetes mellitus intermediate insulin use: without intermediate use Diabetes mellitus complication status: without complication Qualified Code(s): E11.9 - Type 2 diabetes mellitus without complications Plan: Described hyperglycemic effects of steroids. She expressed understanding. Plan Prepared for Riaz Cruz MD by Fran Braga bilingual medical receptionist, on 01/07/24 at 11:45 AM, EST. Orders: Orders XR knee standing BI Today M25.569 - Pain in unspecified knee Coding Level of Care Code Est Pt Level 4 (22014) Diagnoses Primary osteoarthritis of knees, bilateral M17.0 Type 2 diabetes mellitus without complication, without long-term current use of insulin E11.9 Diabetes mellitus type: type 2 Diabetes mellitus terminologist insulin use: without intermediate use Diabetes mellitus complication status: without complication CPT Codes Coding - 24179 Large joint: 07682 - Large joint ([id number])
== END 2024-01-07 12:31 | disposition home or self-care (01) ==
PROVIDERS: PCP Internal Medicine; Visit Provider Orthopaedic Surgery
DX: M17.0 Bilateral primary osteoarthritis of knee (principal); E11.9 Type 2 diabetes mellitus without complications
CPT/HCPCS: 20610; 99214

== ENCOUNTER 2024-01-11 11:36 | Outpatient (REF) | payer MEDICARE, MEDICAID, SELFPAY | END 2024-01-11 11:37 | disposition home or self-care (01) | LOC: HO.MAMMO 11:36 | PROVIDERS: PCP Internal Medicine; Visit Provider Internal Medicine | DX: Z12.31 Encounter for screening mammogram for malignant neoplasm of breast (principal) | CPT/HCPCS: 77063; 77067 ==

== ENCOUNTER → 2024-01-11 11:45 | Outpatient (BNV) | payer MEDICARE, MEDICAID, SELFPAY | PROVIDERS: PCP Internal Medicine; Visit Provider Radiology Diagnostic Radiology | DX: Z12.31 Encounter for screening mammogram for malignant neoplasm of breast (principal) | CPT/HCPCS: 77063; 77067 ==

== ENCOUNTER 2024-02-07 16:42 | Outpatient (AMB) | payer MEDICARE, MEDICAID, SELFPAY ==
--- NOTE | 2024-02-07 16:45 | MHC.PC.OV ---
Vital Signs 02/07/24 16:47 Height 5 ft 4 in Weight 228 lb BMI 39.1 BP 130/76 Blood Pressure Location Lt brachial Position Sitting Pulse 61 Pulse Source Pulse Oximeter Pulse Oximetry (%) 97 Oxygen Delivery Method Room Air Intake Visit Reasons: 3 month f/u DM, hyperlipidemia, HTN, OA Intake Note: Patient is here to follow up on DM, Hyperlipidemia, HTN, OA. Complaint of bump under left eye. 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: Present Accompanied by: Grand Child Allergies No Known Allergies Allergy (Verified 02/07/24 17:05) Medication List - Last Reconciled 02/07/24 by Anthony Lui MD acetaminophen 500 mg PO Q6H PRN aspirin 81 mg PO QAM 90 days atorvastatin 20 mg PO BEDTIME 90 days blood sugar diagnostic (FreeStyle Lite Strips) 1 strip miscellaneous DAILY cetirizine 10 mg PO BEDTIME PRN 90 days ergocalciferol (vitamin D2) (Vitamin D2) 1,250 mcg PO QWEEK fenofibrate 160 mg PO DAILY 90 days fluticasone propionate 50 mcg/actuation 2 sprays intranasal DAILY PRN 30 days folic acid 1 mg PO QAM furosemide 40 mg PO DAILY hydrochlorothiazide 25 mg PO QAM ibuprofen 800 mg PO Q8H PRN lancets (TRUEplus Lancets) USE TO TEST BLOOD SUGAR FOUR TIMES DAILY metformin 1,000 mg PO BID metoprolol tartrate 50 mg PO BID miscellaneous medical supply 1 ea miscellaneous DAILY miscellaneous medical supply 1 ea miscellaneous DAILY omeprazole 20 mg PO QAM potassium chloride ER 10 mEq PO QAM sertraline 50 mg PO DAILY 30 days sitagliptin phosphate (Januvia) 100 mg PO QAM valsartan 320 mg PO QAM Tobacco use date assessed: 02/07/24 Fall risk assessment: No Falls in past year Last assessed Fall Risk: 02/07/24 Dental Screening Dental Screen Date: 02/07/24 Did you have a dental visit in the last 12 months?: Yes Did you have a dental problem in the last 6 months where you did not have access to dental care?: No Was dental information given to patient?: Patient has dentist HPI 3 month f/u DM, hyperlipidemia, HTN, OA HPI Details Patient comes in today for her follow up visit Reports that she has been experiencing some right ear discomfort for the past 2 weeks; denies any ear pain She denies any headaches or dizziness Denies any chest pains, no SOB No nausea/vomiting, no abdominal pain No change in bowel habits noted States that she has been experiencing increased anxiety lately and has not been able to get much sleep at night Used to take Zolpidem 5 mg to help her sleep at night but has not had this refilled in a while now States that her brother recently She also has an older sister in [place] that also a few months ago and it has been a very difficult time for her emotionally over the past few months and she has been experiencing increased anxiety and depression for a while now She had her follow up labs done a couple of months ago - to discuss her results [facility] Medical History (Updated 08/20/23 @ 11:00 by Anthony Lui MD) Allergic rhinitis Primary osteoarthritis of knees, bilateral Internal derangement of right shoulder Morbid obesity with BMI of 40.0-44.9, adult Anxiety Insomnia Overactive bladder Varicose veins of leg with edema Obstructive sleep apnea Constipation GERD without esophagitis Vitamin D deficiency Inflammatory polyarthropathy Diabetes mellitus Benign essential hypertension Surgical History History of surgery History of cardiac catheterization History of cataract surgery Family History Father Heart disease CVD (cardiovascular disease) Mother CVD (cardiovascular disease) Diabetes Heart disease Brother Mental problem Social History Household Members: None Housing: Apartment Alcohol intake: never Patient Tobacco Use Status: Never used Tobacco e-Cigarette/Vaping Use: Never Used Second Hand Smoke Exposure: No service: No Current occupational status: disabled Cognitive needs: No Hearing needs: No Vision needs: Yes Questionnaire PHQ-9 Over the last 2 weeks, how often have you been bothered by any of the following problems? 1. Little interest or pleasure in doing things: not at all 2. Feeling down, depressed, or hopeless: not at all 3. Trouble falling or staying asleep, or sleeping too much: more than half the days 4. Feeling tired or having little energy: not at all 5. Poor appetite or overeating: not at all 6. Feeling bad about yourself - or that you are a failure or have let yourself or your family down: not at all 7. Trouble concentrating on things, such as reading the newspaper or watching television: not at all 8. Moving or speaking so slowly that other people could have noticed. Or the opposite - being so fidgety or restless that you have been moving around a lot more than usual: not at all 9. Thoughts that you would be better off or of hurting yourself in some way: not at all Total score: 2 Depression Screening Interpretation: Positive Depression Screening Follow-up: Existing condition and In treatment Depression Screening Done: Yes 24197 - PHQ-9 Billing: Yes Source: Developed by Drs. Kelvin Cates, Candice Bryant, Keith Nevarez and colleagues, with an educational kailyn from [employer]. Thrive Questionnaire Date Thrive assessed: 02/07/24 I am a: Patient What is your living situation today?: I have a steady place to live Within the past 12 months, did the food you bought not last and you didn't have the money to get more?: Never true Within the past 12 months, did you worry whether your food would run out before you got money to buy more?: Never true Do you have trouble paying for medicines?: No Do you have trouble getting transportation to medical appointments?: No Do you have trouble paying your heating and electricity bill?: No Do you have trouble taking care of your child, family member or friend?: No Do you have trouble with day-to-day activities such as bathing, preparing meals, shopping, managing finances, etc.?: No Are you currently unemployed and looking for a job?: No Are you interested in more education?: No Currently or been in a relationship where the following occur: no concerns reported THRIVE Score: 0 AUDIT C Alcohol Use Questionnaire (AUDIT-C) 1. How often do you have a drink containing alcohol?: Never Total Score: 0 Score Reviewed/Action Taken: Yes ELIESER-7 AMB Questionnaire ELIESER-7 Date ELIESER - 7 assessed: 02/07/24 Feeling nervous, anxious, or on edge: 0 = Not at all Not being able to stop or control worryin = Not at all Worrying too much about different things: 0 = Not at all Trouble relaxin = Not at all Being so restless that it is hard to sit still: 0 = Not at all Becoming easily annoyed or irritable: 0 = Not at all Feeling afraid as if something awful might happen: 0 = Not at all Total ELIESER-7 score (0-4 normal; 5-9 mild; 10-14 moderate; 15-21 severe): 0 Source: Developed by Drs. Kelvin Cates, Candice Bryant, Keith Nevarez and colleagues, with an educational kailyn from [employer]. Review of Systems Const Denies chills, Reports difficulty sleeping, Reports fatigue, Denies fever(s) and Denies headache(s) ENT Denies dysphagia, Denies dizziness, Denies otalgia (but reports (+) right ear discomfort), Denies headache(s), Reports nasal discharge (at times), Reports neck pain, Denies odynophagia, Reports sinus pressure (at times) and Denies sore throat Card Denies chest pain, Denies palpitations and Denies dyspnea Resp Denies cough, Denies dyspnea and Denies wheezing GI Denies abdominal pain, Denies constipation, Denies dysphagia, Denies heartburn, Denies diarrhea, Denies nausea, Denies odynophagia and Denies vomiting Denies difficulty voiding, Denies nocturia, Denies dysuria and Denies urinary urgency Musc Reports back pain, Reports arthralgias (multiple joints but increasing bilateral knee pain lately) and Reports neck pain Skin/Breast Denies rash Neuro Denies dizziness and Denies headache(s) Psych Reports anxiety (increasing) and Reports depression Endo Reports fatigue and Denies palpitations Aller/Immun Reports seasonal rhinorrhea (worse at night lately) and Denies wheezing Physical exam (Primary Care) Vital Signs: Last Vital Signs Pulse 61 02/07/24 16:47 BP 130/76 02/07/24 16:47 Pulse Ox 97 02/07/24 16:47 Oxygen Delivery Method Room Air 02/07/24 16:47 BMI result Body Mass Index 39.1 Tobacco/Smoking Status: Tobacco use Status Tobacco use date assessed 02/07/24 02/07/24 16:56 Patient Tobacco Use Status Never used Tobacco 02/07/24 16:45 e-Cigarette/Vaping Use Never Used 02/07/24 16:45 PHQ-9: PHQ-9 Score PHQ-9: Total score 2 02/07/24 17:14 Depression Screening Interpretation: Positive Depression Screening Follow-up: Existing condition and In treatment Thrive Assessment: Date of Thrive Assessment Date Thrive assessed 02/07/24 02/07/24 16:56 Currently or been in a relationship where the following occur: no concerns reported Const General: no acute distress and alert HENMT Ears: TM normal on the left, EAC's normal and TM abnormal bulging (slightly) on the right; not with effusion and with no fluid behind the TM Throat: Yes posterior oropharynx normal and Yes tonsils normal (no TP congestion noted) Neck Neck: Yes no lymphadenopathy and Yes supple Thyroid: Thyroid normal Resp Auscultation: clear to auscultation bilaterally, no rales and no wheezes Cardio Rate: regular rate Rhythm: regular rhythm Heart sounds: no murmurs GI Palpation (GI): Soft to palpation and nontender Auscultation: normal bowel sounds General: Yes no CVA tenderness Back/Spine/Pelvis Back: no CVA tenderness Cervical Spine: Cervical spine tenderness Thoracic/Lumbar Spine: thoracic spinal tenderness and lumbar spinal tenderness Skin Rashes: no rashes Extrem Other: (+) prominent varicose veins over both lower extremities General: No clubbing, No cyanosis and Yes edema ((+) chronic 2+ bilateral lower extremity edema with varicosities) Right upper extremity: shoulder/upper arm Details: tenderness Left upper extremity: shoulder/upper arm Details: tenderness Right lower extremity: knee Details: tenderness and swelling (mild) Left lower extremity: knee Details: tenderness Location: of the medial joint line and swelling (mild) and ankle Details: tenderness Location: of the lateral malleolus and swelling Details: laterally Results Reviewed Results Reviewed: Laboratory Tests 12/14/23 12/14/23 12/14/23 07:31 07:31 07:35 WBC 8.5 Hgb 13.9 Hct 43.5 Plt Count 303 Sodium 140 Potassium 4.0 Creatinine 0.85 Estimated GFR > 60 Fasting Glucose 116 H Hemoglobin A1c % Calcium AST ALT 19 Triglycerides 238 H Cholesterol 139 LDL Cholesterol, Calc 52 HDL Cholesterol 40 L 25-OH Vitamin D Total 34.4 TSH 1.34 Ur Specific [place] 1.010 Urine Protein Negative Urine Glucose (UA) Negative Urine Blood Negative Urine Nitrite Negative Ur Leukocyte Esterase Trace H Microalb/Creat Ratio 16.3 12/14/23 12/14/23 07:35 07:35 WBC Hgb Hct Plt Count Sodium Potassium Creatinine Estimated GFR Fasting Glucose Hemoglobin A1c % 6.2 H Calcium 10.2 AST 17 ALT Triglycerides Cholesterol LDL Cholesterol, Calc HDL Cholesterol 25-OH Vitamin D Total TSH Ur Specific [place] Urine Protein Urine Glucose (UA) Urine Blood Urine Nitrite Ur Leukocyte Esterase Microalb/Creat Ratio Assessment and Plan Assessment & Plan (1) Mixed hyperlipidemia: Code(s): E78.2 - Mixed hyperlipidemia Plan: Results of her labs done a couple of months ago reviewed and discussed with patient - her serum triglyceride level has again increased slightly from previous but all of her other numbers are within acceptable range Reinforced low cholesterol diet Continue Atorvastatin 20 mg QD and Fenofibrate 160 mg QD Will recheck her labs and fasting lipids in 3 months for follow-up (2) Diabetes mellitus: Code(s): E11.9 - Type 2 diabetes mellitus without complications Qualifiers: Diabetes mellitus complication status: without complication Diabetes mellitus ad terminal makeup operator insulin use: without ad terminal makeup operator use Diabetes mellitus type: type 2 Qualified Code(s): E11.9 - Type 2 diabetes mellitus without complications Plan: Her HgbA1c was unchanged at 6.2% on her labs done a couple of months ago (was also at 6.2% previously) - goal is < 7.0% Reinforced diabetic diet Continue Metformin 1000 mg BID and Januvia 100 mg QD (3) Benign essential hypertension: Code(s): I10 - Essential (primary) hypertension Plan: Reinforced low-sodium diet - goal is systolic BP of at least 130 mm or less Continue Valsartan 320 mg QD, Metoprolol Tartrate 50 mg BID and HCTZ 25 mg QD; she is also on Furosemide 40 mg once a day in AM but this is more for her lower extremity edema (4) Primary osteoarthritis of knees, bilateral: Code(s): M17.0 - Bilateral primary osteoarthritis of knee Plan: X-rays of both knees done a few months ago revealed (+) moderate to severe OA changes in both knees, with slight progression from previous She has been referred to orthopedics but remains very hesitant about undergoing knee replacement surgery Follow up with orthopedics as scheduled (5) Arthritis of left shoulder region: Code(s): M19.012 - Primary osteoarthritis, left shoulder Plan: MRI of the left shoulder done a few months ago revealed a complete, full-thickness tear of the supraspinatus tendon Has been advised by orthopedics that she may require surgery, especially if symptoms progress Follow up with orthopedics as scheduled (6) Inflammatory polyarthropathy: Code(s): M06.4 - Inflammatory polyarthropathy Plan: Patient used to take Methotrexate and follow-up with Rheumatology but has not seen them for a few years now - states that her joint pains have been well-controlled lately Continue Acetaminophen 500 mg every 6 hours as needed and Cyclobenzaprine 5 mg twice a day as needed Will consider referring to [facility] for further evaluation and management again if her symptoms get worse (7) Varicose veins of leg with edema: Code(s): I83.899 - Varicose veins of unspecified lower extremity with other complications Qualifiers: Laterality: bilateral Qualified Code(s): I83.893 - Varicose veins of bilateral lower extremities with other complications Plan: S/P EVLT with Dr. Jj last year (2022) Follow up with vascular surgery as scheduled (8) Vitamin D deficiency: Code(s): E55.9 - Vitamin D deficiency, unspecified Plan: Continue Vitamin D2 84752 units once a week (9) GERD without esophagitis: Code(s): K21.9 - Gastro-esophageal reflux disease without esophagitis Plan: Dietary restrictions reinforced Continue Omeprazole 20 mg QD (10) Constipation: Code(s): K59.00 - Constipation, unspecified Qualifiers: Constipation type: unspecified constipation type Qualified Code(s): K59.00 - Constipation, unspecified Plan: Encouraged again on increased oral fluids and dietary fiber Continue MiraLax 17 g once a day and Senna 8.6 mg 1 tablet once a day as needed (11) Allergic rhinitis: Code(s): J30.9 - Allergic rhinitis, unspecified Qualifiers: Allergic rhinitis seasonality: unspecified Allergic rhinitis trigger: unspecified Qualified Code(s): J30.9 - Allergic rhinitis, unspecified Plan: Continue Cetirizine 10 mg Q PM and Fluticasone 50 mcg nasal spray QD PRN (Rx refille) Advised that her recent right ear symptoms are likely due to increased sinus pressure related to her allergies (12) Obstructive sleep apnea: Code(s): G47.33 - Obstructive sleep apnea (adult) (pediatric) Plan: Has an AutoPAP / CPAP device but now admits that she has not used it in a few years as it is not comfortable to keep on Follow up with Sleep Medicine as scheduled Has been advised to try sleeping on her side to help reduce snoring (13) Overactive bladder: Code(s): N32.81 - Overactive bladder Plan: Follow up with Urology as scheduled (14) Insomnia: Code(s): G47.00 - Insomnia, unspecified Qualifiers: Insomnia type: unspecified Qualified Code(s): G47.00 - Insomnia, unspecified Plan: Sleep hygiene reinforced Will start her back on Zolpidem 5 mg Q HS PRN - new Rx sent Was on Trazodone 100 mg once a day at bedtime but feels that the Rx makes her dizzy (15) Anxiety: Code(s): F41.9 - Anxiety disorder, unspecified Plan: Continue Lorazepam 1 mg BID as needed and Sertraline 50 mg QD (16) Morbid obesity with BMI of 40.0-44.9, adult: Code(s): E66.01 - Morbid (severe) obesity due to excess calories; Z68.41 - Body mass index [BMI] 40.0-44.9, adult Plan: Reinforced diet/exercise as tolerated/lose weight Plan Follow up in 3 months Orders: Orders Complete Blood Count Auto Diff 3 Months D64.9 - Anemia, unspecified Lipid Panel 3 Months E78.00 - Pure hypercholesterolemia, unspecified Comprehensive [place]. Panel Fast 3 Months E78.00 - Pure hypercholesterolemia, unspecified Hemoglobin A1c 3 Months E11.9 - Type 2 diabetes mellitus without complications Microalbumin, Random (w Creat) 3 Months E11.9 - Type 2 diabetes mellitus without complications UA CC w/rflx Micro + Cult 3 Months R30.0 - Dysuria Vitamin D 25-OH Total 3 Months E55.9 - Vitamin D deficiency, unspecified TSH reflex Free T4 3 Months E78.00 - Pure hypercholesterolemia, unspecified Medications: Refilled zolpidem 5 mg PO BEDTIME PRN 30 tabs 1RF insomnia 30 days fluticasone propionate 50 mcg/actuation administer into each nostril 2 sprays intranasal DAILY PRN 16 grams 5RF allergy symptoms 30 days cetirizine 10 mg PO BEDTIME PRN 90 tabs 1RF allergy symptoms 90 days Coding Level of Care Code Est Pt Level 4 (69321) Diagnoses Mixed hyperlipidemia E78.2 Type 2 diabetes mellitus without complication, without long-term current use of insulin E11.9 Diabetes mellitus complication status: without complication Diabetes mellitus ad terminal makeup operator insulin use: without ad terminal makeup operator use Diabetes mellitus type: type 2 Benign essential hypertension I10 Primary osteoarthritis of knees, bilateral M17.0 Arthritis of left shoulder region M19.012 Inflammatory polyarthropathy M06.4 Varicose veins of both legs with edema I83.893 Laterality: bilateral Vitamin D deficiency E55.9 GERD without esophagitis K21.9 Constipation, unspecified constipation type K59.00 Constipation type: unspecified constipation type Allergic rhinitis, unspecified seasonality, unspecified trigger J30.9 Allergic rhinitis seasonality: unspecified Allergic rhinitis trigger: unspecified Obstructive sleep apnea G47.33 Overactive bladder N32.81 Insomnia, unspecified type G47.00 Insomnia type: unspecified Anxiety F41.9 Morbid obesity with BMI of 40.0-44.9, adult E66.01; Z68.41
[2024-02-07 16:47] VITALS: BP 130/76; PULSE 61; O2SAT 97; BMI 39.1
== END 2024-02-07 17:16 | disposition home or self-care (01) ==
PROVIDERS: PCP Internal Medicine; Visit Provider Internal Medicine
DX: E11.69 Type 2 diabetes mellitus with other specified complication (principal); M06.4 Inflammatory polyarthropathy; Z68.41 Body mass index [BMI] 40.0-44.9, adult; E66.01 Morbid (severe) obesity due to excess calories; E78.2 Mixed hyperlipidemia; I10 Essential (primary) hypertension; M17.0 Bilateral primary osteoarthritis of knee; M19.012 Primary osteoarthritis, left shoulder; I83.893 Varicose veins of bilateral lower extremities with other complications; E55.9 Vitamin D deficiency, unspecified; K21.9 Gastro-esophageal reflux disease without esophagitis; K59.00 Constipation, unspecified
CPT/HCPCS: 99214

== ENCOUNTER 2024-05-23 06:15 | Outpatient (REF) | payer MEDICARE, MEDICAID, SELFPAY ==
[2024-05-23 06:27] LABS: MANUAL DIFF FLAG NO
[2024-05-23 07:37] LABS: Basophils Absolute Auto 0.1 X10*3/uL (0.0-0.2); Basophils Percent Auto 0.7 % (0-2); Eosinophils Absolute Auto 0.2 X10*3/uL (0.0-0.4); Eosinophils Percent Auto 2.7 % (0-4); Hematocrit 42.5 % (37.0-47.0); Hemoglobin 13.6 g/dl (12.0-16.0); Imm Gran Abs Auto 0.05 X10*3/uL (0.00-0.03); Imm Gran Pct Auto 0.7 % (0.0-0.4); Lymphocytes Absolute Auto 1.9 X10*3/uL (1.2-4.9); Lymphocytes Percent Auto 26.5 % (20-40); Mean Corpuscular Hemoglobin 27.6 pg (27.0-33.0); Mean Corpuscular Volume 86.2 fL (80.0-98.0); Mean Platelet Volume 9.7 fL (9.4-12.3); Monocytes Absolute Auto 0.7 X10*3/uL (0.1-1.2); Monocytes Percent Auto 9.2 % (2-11); Neutrophils Absolute Auto 4.2 x10*3/uL (2.0-8.3); Neutrophils Percent Auto 60.2 % (45-73); Platelet Count 259 X10*3/uL (160-400); Red Blood Count 4.93 X10*6/uL (4.20-5.50); Red Cell Distribution Width 13.9 % (11.0-16.0)
[2024-05-23 07:46] LABS: Appearance Urine Clear; Color Urine Yellow; Glucose Urine UA Negative (Negative); Leukocyte Esterase Urine Negative (Negative); Nitrite Urine Negative (Negative); PH 7.5 (5.0-9.0); Urine Blood Negative (Negative); Urine Ketones Negative (Negative); Urine Protein Negative (Neg-Trace)
[2024-05-23 08:03] LABS: Estimated Average Glucose 137 mg/dL; Hemoglobin A1c % 6.4 % (<6.0)
[2024-05-23 08:12] LABS: Creatinine Urine 66.24 mg/dL; Microalbum/Creatinine Ratio Ur 27.1 ug/mg cr (<30)
[2024-05-23 08:16] LABS: Alanine Aminotransferase 25 U/L (0-31); Albumin Level 3.7 g/dL (3.5-5.0); Alkaline Phosphatase 85 U/L (39-117); Anion Gap 14 (12-20); Aspartate Amino Transferase 17 U/L (5-31); Bilirubin Total 0.2 mg/dL (0.0-1.0); Blood Urea Nitrogen 21 mg/dL (9-16); Calcium 9.8 mg/dL (8.4-10.2); Carbon Dioxide 27 mmol/L (22-29); Chloride 107 mmol/L (96-108); Cholesterol 171 mg/dL (<200); Estimated Glomerular Filt Rate > 60; Glucose Fasting 129 mg/dL (60-99); HDL Cholesterol 36 mg/dL (>40); LDL Cholesterol Calculated 59 mg/dL (<100); Potassium 4.5 mmol/L (3.3-5.1); Sodium 143 mmol/L (135-145); Total Protein 7.6 g/dL (6.5-8.0); Triglycerides 382 mg/dL (<150)
[2024-05-23 08:33] LABS: TSH reflex Free T4 1.42 uIU/mL (0.32-4.0); Vitamin D 25-OH Total 39.6 ng/mL (>30)
== END 2024-05-23 06:16 | disposition home or self-care (01) ==
LOC: HO.LAB 06:15
PROVIDERS: PCP Internal Medicine; Visit Provider Internal Medicine
DX: D64.9 Anemia, unspecified (principal); E78.00 Pure hypercholesterolemia, unspecified; E11.9 Type 2 diabetes mellitus without complications; E55.9 Vitamin D deficiency, unspecified; R30.0 Dysuria
CPT/HCPCS: 36415; 80053; 80061; 81003; 82043; 82306; 82570; 83036; 84443; 85025

== ENCOUNTER 2024-05-25 11:53 | Outpatient (AMB) | payer MEDICARE, MEDICAID, SELFPAY ==
[2024-05-25 11:55] VITALS: BP 138/74; PULSE 76; O2SAT 98; BMI 39.8
--- NOTE | 2024-05-25 11:55 | A.OFFPC_ITS ---
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: No Allergies tramadol Adverse Reaction (Intermediate, Verified 05/25/24 12:33) Stomach Upset Medication List - Last Reconciled 05/25/24 by Anthony Lui MD acetaminophen 500 mg PO Q6H PRN aspirin 81 mg PO QAM 90 days atorvastatin 20 mg PO BEDTIME 90 days blood sugar diagnostic (FreeStyle Lite Strips) 1 strip miscellaneous DAILY blood-glucose meter (FreeStyle Lite Meter kit) As directed cetirizine 10 mg PO BEDTIME PRN 90 days ergocalciferol (vitamin D2) (Vitamin D2) 1,250 mcg PO QWEEK fenofibrate 160 mg PO DAILY 90 days fluticasone propionate 50 mcg/actuation 2 sprays intranasal DAILY PRN 30 days folic acid 1 mg PO QAM [free style glucometer As directed] furosemide 40 mg PO DAILY hydrochlorothiazide 25 mg PO QAM ibuprofen 800 mg PO Q8H PRN lancets (TRUEplus Lancets) USE TO TEST BLOOD SUGAR FOUR TIMES DAILY metformin 1,000 mg PO BID metoprolol tartrate 50 mg PO BID miscellaneous medical supply 1 ea miscellaneous DAILY miscellaneous medical supply 1 ea miscellaneous DAILY omeprazole 20 mg PO QAM potassium chloride ER 10 mEq PO QAM sertraline 50 mg PO DAILY 30 days sitagliptin phosphate (Januvia) 100 mg PO QAM valsartan 320 mg PO QAM zolpidem 5 mg PO BEDTIME PRN 30 days Tobacco use date assessed: 02/07/24 Fall risk assessment: No Falls in past year Last assessed Fall Risk: 05/25/24 Dental Screening Dental Screen Date: 02/07/24 HPI FOLLOW UP HPI Details Patient comes in today for her follow-up visit States that she has been experiencing increasing pain over both of her legs for several weeks now Notes that leg pains feel worse at the end of the day and at night; states that she has also been experiencing recurrent cramping pain in her legs at night lately She denies any headaches or dizziness Denies any chest pains, no shortness of breath No nausea /vomiting, no abdominal pain No change in bowel habits noted Needs Rx for a new shower chair and a walking cane Had her follow-up labs done a couple of days ago - to discuss her results [facility] Medical History Allergic rhinitis Primary osteoarthritis of knees, bilateral Internal derangement of right shoulder Morbid obesity with BMI of 40.0-44.9, adult Anxiety Insomnia Overactive bladder Varicose veins of leg with edema Obstructive sleep apnea Constipation GERD without esophagitis Vitamin D deficiency Inflammatory polyarthropathy Diabetes mellitus Benign essential hypertension Surgical History History of surgery History of cardiac catheterization History of cataract surgery Family History Father Heart disease CVD (cardiovascular disease) Mother CVD (cardiovascular disease) Diabetes Heart disease Brother Mental problem Social History Household Members: None Housing: Apartment Alcohol intake: never Patient Tobacco Use Status: Never used Tobacco e-Cigarette/Vaping Use: Never Used Second Hand Smoke Exposure: No service: No Current occupational status: disabled Cognitive needs: No Hearing needs: No Vision needs: Yes Questionnaire Thrive Questionnaire Date Thrive assessed: 02/07/24 AUDIT C Alcohol Use Questionnaire (AUDIT-C) 1. How often do you have a drink containing alcohol?: Never Total Score: 0 Score Reviewed/Action Taken: Yes ELIESER-7 AMB Questionnaire ELIESER-7 Date ELIESER - 7 assessed: 02/07/24 Source: Developed by Drs. Kelvin Cates, Candice Bryant, Keith Nevarez and colleagues, with an educational kailyn from [employer]. Review of Systems Const Denies chills, Reports difficulty sleeping, Reports fatigue, Denies fever(s) and Denies headache(s) ENT Denies dysphagia, Denies dizziness, Denies otalgia, Denies headache(s), Reports neck pain, Denies odynophagia and Denies sore throat Card Denies chest pain, Denies palpitations and Denies dyspnea Resp Denies cough, Denies dyspnea and Denies wheezing GI Denies abdominal pain, Denies constipation, Denies dysphagia, Denies heartburn, Denies diarrhea, Denies nausea, Denies odynophagia and Denies vomiting Denies difficulty voiding, Denies nocturia, Denies dysuria and Denies urinary urgency Musc Details: frequent increased pain over both lower extremities Reports back pain, Reports arthralgias (multiple joints, especially over both knees) and Reports neck pain Skin/Breast Denies rash Neuro Denies dizziness and Denies headache(s) Psych Reports anxiety (increasing) and Reports depression Endo Reports fatigue and Denies palpitations Aller/Immun Reports seasonal rhinorrhea (worse at night lately) and Denies wheezing Physical exam (Primary Care) Vital Signs: Last Vital Signs Pulse 76 05/25/24 11:55 BP 138/74 05/25/24 11:55 Pulse Ox 98 05/25/24 11:55 Oxygen Delivery Method Room Air 05/25/24 11:55 BMI result Body Mass Index 39.8 Tobacco/Smoking Status: Tobacco use Status Tobacco use date assessed 02/07/24 05/25/24 11:56 Patient Tobacco Use Status Never used Tobacco 05/25/24 11:56 e-Cigarette/Vaping Use Never Used 05/25/24 11:56 Thrive Assessment: Date of Thrive Assessment Date Thrive assessed 02/07/24 05/25/24 11:56 Const General: no acute distress and alert HENMT Ears: TM's normal bilaterally and EAC's normal Throat: Yes posterior oropharynx normal and Yes tonsils normal (no TP congestion noted) Neck Neck: Yes no lymphadenopathy and Yes supple Thyroid: Thyroid normal Resp Auscultation: clear to auscultation bilaterally, no rales and no wheezes Cardio Rate: regular rate Rhythm: regular rhythm Heart sounds: no murmurs GI Palpation (GI): Soft to palpation and nontender Auscultation: normal bowel sounds General: Yes no CVA tenderness Back/Spine/Pelvis Back: no CVA tenderness Cervical Spine: Cervical spine tenderness Thoracic/Lumbar Spine: thoracic spinal tenderness and lumbar spinal tenderness Skin Rashes: no rashes Extrem Other: (+) prominent varicose veins over both lower extremities General: No clubbing, No cyanosis and Yes edema ((+) chronic 2+ bilateral lower extremity edema with varicosities) Right upper extremity: shoulder/upper arm Details: tenderness Left upper extremity: shoulder/upper arm Details: tenderness Right lower extremity: knee Details: tenderness and swelling (mild) Left lower extremity: knee Details: tenderness Location: of the medial joint line and swelling (mild) and ankle Details: tenderness Location: of the lateral malleolus and swelling Details: laterally Results Reviewed Results Reviewed: Laboratory Tests 05/23/24 05/23/24 06:25 06:26 WBC 7.0 Hgb 13.6 Hct 42.5 Plt Count 259 Sodium 143 Potassium 4.5 Creatinine 0.80 Estimated GFR > 60 Fasting Glucose 129 H Hemoglobin A1c % 6.4 H Calcium 9.8 AST 17 ALT 25 Triglycerides 382 H Cholesterol 171 LDL Cholesterol, Calc 59 HDL Cholesterol 36 L 25-OH Vitamin D Total 39.6 TSH 1.42 Ur Specific [place] 1.020 Urine Protein Negative Urine Glucose (UA) Negative Urine Blood Negative Urine Nitrite Negative Ur Leukocyte Esterase Negative Microalb/Creat Ratio 27.1 Assessment and Plan Assessment & Plan (1) Mixed hyperlipidemia: Code(s): E78.2 - Mixed hyperlipidemia Plan: Results of her labs done a couple of days ago reviewed and discussed with patient - her serum triglyceride level has again increased slightly from previous but all of her other numbers are within acceptable range Reinforced low cholesterol diet Continue Atorvastatin 20 mg QD and Fenofibrate 160 mg QD Will recheck her labs and fasting lipids in 3 months for follow-up (2) Diabetes mellitus: Code(s): E11.9 - Type 2 diabetes mellitus without complications Qualifiers: Diabetes mellitus complication status: without complication Diabetes mellitus tattoo technician insulin use: without tattoo technician use Diabetes mellitus type: type 2 Qualified Code(s): E11.9 - Type 2 diabetes mellitus without complications Plan: Her HgbA1c has increased slightly to 6.4% on her labs done a couple of days ago (was at 6.2% previously) - goal is < 7.0% Reinforced diabetic diet Continue Metformin 1000 mg BID and Januvia 100 mg QD (3) Benign essential hypertension: Code(s): I10 - Essential (primary) hypertension Plan: Reinforced low-sodium diet - goal is systolic BP of at least 130 mm or less Continue Valsartan 320 mg QD, Metoprolol Tartrate 50 mg BID and HCTZ 25 mg QD; she is also on Furosemide 40 mg once a day in AM but this is more for her lower extremity edema (4) Primary osteoarthritis of knees, bilateral: Code(s): M17.0 - Bilateral primary osteoarthritis of knee Plan: X-rays of both knees done a few months ago revealed (+) moderate to severe OA changes in both knees, with slight progression from previous She has been referred to orthopedics and has received cortisone injections into her knees but states that they only provide a few months of relief at most Follow up with orthopedics as scheduled but she remains very hesitant about undergoing knee replacement surgery She also was not able to tolerate Tramadol when it was prescribed for her to help with her pain a few years ago Will refer her to Pain Management to explore alternative pain management options (5) Leg cramps: Code(s): R25.2 - Cramp and spasm Plan: These are likely related to her increasing knee pain due to osteoarthritis Will start patient on Tizanidine 2 mg Q HS PRN (6) Arthritis of left shoulder region: Code(s): M19.012 - Primary osteoarthritis, left shoulder Plan: MRI of the left shoulder done a few months ago revealed a complete, full- thickness tear of the supraspinatus tendon Has been advised by orthopedics that she may require surgery, especially if symptoms progress Follow up with orthopedics as scheduled (7) Inflammatory polyarthropathy: Code(s): M06.4 - Inflammatory polyarthropathy Plan: Patient used to take Methotrexate and follow-up with Rheumatology but has not seen them for a few years now - states that her joint pains have been well- controlled lately Continue Acetaminophen 500 mg every 6 hours as needed Will consider referring to [facility] [facility] for further evaluation and management again if her symptoms get worse (8) Varicose veins of leg with edema: Code(s): I83.899 - Varicose veins of unspecified lower extremity with other complications Qualifiers: Laterality: bilateral Qualified Code(s): I83.893 - Varicose veins of bilateral lower extremities with other complications Plan: S/P EVLT with Dr. Jj last year (2022) Follow up with vascular surgery as scheduled (9) Vitamin D deficiency: Code(s): E55.9 - Vitamin D deficiency, unspecified Plan: Continue Vitamin D2 71659 units once a week (10) GERD without esophagitis: Code(s): K21.9 - Gastro-esophageal reflux disease without esophagitis Plan: Dietary restrictions reinforced Continue Omeprazole 20 mg QD (11) Constipation: Code(s): K59.00 - Constipation, unspecified Qualifiers: Constipation type: unspecified constipation type Qualified Code(s): K59.00 - Constipation, unspecified Plan: Encouraged again on increased oral fluids and dietary fiber Continue MiraLax 17 g once a day and Senna 8.6 mg 1 tablet once a day as needed (12) Allergic rhinitis: Code(s): J30.9 - Allergic rhinitis, unspecified Qualifiers: Allergic rhinitis seasonality: unspecified Allergic rhinitis trigger: unspecified Qualified Code(s): J30.9 - Allergic rhinitis, unspecified Plan: Continue Cetirizine 10 mg Q PM and Fluticasone 50 mcg nasal spray QD PRN (13) Obstructive sleep apnea: Code(s): G47.33 - Obstructive sleep apnea (adult) (pediatric) Plan: Has an AutoPAP / CPAP device but now admits that she has not used it in a few years as it is not comfortable to keep on Follow up with Sleep Medicine as scheduled She has been advised to try sleeping on her side to help reduce snoring (14) Overactive bladder: Code(s): N32.81 - Overactive bladder Plan: Follow up with Urology as scheduled (15) Insomnia: Code(s): G47.00 - Insomnia, unspecified Qualifiers: Insomnia type: unspecified Qualified Code(s): G47.00 - Insomnia, unspecified Plan: Sleep hygiene reinforced Will start her back on Zolpidem 5 mg Q HS PRN - new Rx sent Was on Trazodone 100 mg once a day at bedtime but feels that the Rx makes her dizzy (16) Anxiety: Code(s): F41.9 - Anxiety disorder, unspecified Plan: Continue Lorazepam 1 mg BID as needed and Sertraline 50 mg QD (17) Morbid obesity with BMI of 40.0-44.9, adult: Code(s): E66.01 - Morbid (severe) obesity due to excess calories; Z68.41 - Body mass index [BMI] 40.0-44.9, adult Plan: Reinforced diet; exercise and weight loss are unrealistic given patient multiple physical issues and comorbidities Plan Follow up in 3 months Orders: Orders Lipid Panel 3 Months E78.00 - Pure hypercholesterolemia, unspecified TSH reflex Free T4 3 Months E78.00 - Pure hypercholesterolemia, unspecified UA CC w/rflx Micro + Cult 3 Months R30.0 - Dysuria Microalbumin, Random (w Creat) 3 Months E11.9 - Type 2 diabetes mellitus without complications Hemoglobin A1c 3 Months E11.9 - Type 2 diabetes mellitus without complications Complete Blood Count Auto Diff 3 Months D64.9 - Anemia, unspecified Comprehensive [place]. Panel Fast 3 Months E78.00 - Pure hypercholesterolemia, unspecified Vitamin D 25-OH Total 3 Months E55.9 - Vitamin D deficiency, unspecified Referrals Pain Management Referral M17.0 - Bilateral primary osteoarthritis of knee Medications: New tizanidine 2 mg PO Q8H PRN 30 tabs 0RF leg cramps/pain [SHOWER CHAIR] As directed 1 ea 0RF M17.0 - Bilateral primary osteoarthritis of knee [CANE] As directed 1 ea 0RF M17.0 - Bilateral primary osteoarthritis of knee Coding Level of Care Code Est Pt Level 4 (91214) Complex EM visit Add On G2211 Diagnoses Mixed hyperlipidemia E78.2 Type 2 diabetes mellitus without complication, without long-term current use of insulin E11.9 Diabetes mellitus complication status: without complication Diabetes mellitus skilled nursing insulin use: without tattoo technician use Diabetes mellitus type: type 2 Benign essential hypertension I10 Primary osteoarthritis of knees, bilateral M17.0 Leg cramps R25.2 Arthritis of left shoulder region M19.012 Inflammatory polyarthropathy M06.4 Varicose veins of both legs with edema I83.893 Laterality: bilateral Vitamin D deficiency E55.9 GERD without esophagitis K21.9 Constipation, unspecified constipation type K59.00 Constipation type: unspecified constipation type Allergic rhinitis, unspecified seasonality, unspecified trigger J30.9 Allergic rhinitis seasonality: unspecified Allergic rhinitis trigger: unspecified Obstructive sleep apnea G47.33 Overactive bladder N32.81 Insomnia, unspecified type G47.00 Insomnia type: unspecified Anxiety F41.9 Morbid obesity with BMI of 40.0-44.9, adult E66.01; Z68.41
== END 2024-05-25 12:45 | disposition home or self-care (01) ==
PROVIDERS: PCP Internal Medicine; Visit Provider Internal Medicine
DX: E78.2 Mixed hyperlipidemia (principal); E11.9 Type 2 diabetes mellitus without complications; I10 Essential (primary) hypertension; M17.0 Bilateral primary osteoarthritis of knee; R25.2 Cramp and spasm; M19.012 Primary osteoarthritis, left shoulder; M06.4 Inflammatory polyarthropathy; I83.893 Varicose veins of bilateral lower extremities with other complications; E55.9 Vitamin D deficiency, unspecified; K21.9 Gastro-esophageal reflux disease without esophagitis; E66.01 Morbid (severe) obesity due to excess calories; Z68.41 Body mass index [BMI] 40.0-44.9, adult; K59.00 Constipation, unspecified; J30.9 Allergic rhinitis, unspecified; G47.33 Obstructive sleep apnea (adult) (pediatric); N32.81 Overactive bladder; G47.00 Insomnia, unspecified; F41.9 Anxiety disorder, unspecified
CPT/HCPCS: 99214; G2211

== ENCOUNTER 2024-06-12 09:46 | Outpatient (AMB) | payer MEDICARE, MEDICAID, SELFPAY ==
--- NOTE | 2024-06-12 09:55 | A.OFFVIS_ITS ---
Vital Signs 06/12/24 10:00 Height 5 ft 4 in Weight 233 lb BMI 40.0 BP 150/67 H Blood Pressure Location Rt brachial Position Sitting Pulse 60 Pulse Source Pulse Oximeter Pulse Oximetry (%) 97 Oxygen Delivery Method Room Air Intake Visit Reasons: Bilateral primary osteoarthritis of knee Intake Note: Pain today 0/10 Licensed Psychiatric Technician Required: Yes Licensed Psychiatric Technician Language: Die Lay Out Worker Name: Grandson Accompanied by: Grand Child Allergies tramadol Adverse Reaction (Intermediate, Verified 06/12/24 09:59) Stomach Upset HPI HPI Bilateral primary osteoarthritis of knee: Details: Patient is a pleasant 68-year-old [place]ralt[place]-speaking female with history of diabetes, left shoulder pain, osteoarthritis, morbid obesity, varicose veins with inflammation, anxiety, presents today for initial evaluation for bilateral knee pain due to advanced osteoarthritis. Patient is not interested in total- knee replacement surgery and is looking for noninvasive treatment options. Patient reports left knee is worse than the right and increased with walking, climbing stairs, weight-bearing or changing positions. She reports mild pain while sitting or resting. Patient's family reports sedentary lifestyle for patient due to chronic daily pain and difficulty ambulating. Knee pain is worse in the mornings upon awakening and less severe in the afternoon. Patient reports previous cortisone injections, last injection in 12/2023 by Orthopedics, which provided her 3-4 months of pain relief. She is not able to pursue physical therapy at this time due to significant pain is activities. Patient denies any fever, chills, rash, infection, weakness, footdrop, bladder or bowel dysfunction or saddle anesthesia. Location: Bilateral anterior and lateral aspects of both knees, left>right Duration: Chronic pain for many years Characteristics of symptom or complaint: Aching, stabbing, tight, squeezing, sore, dull, hurting, heavy Aggravating or associated factors: Cold weather, movements, climbing stairs, walking, bending Relieving factors: Rest, heat/ice therapy, Ibuprofen, Tylenol Treatment: [facility]isone injections 12/2023 [facility] Medical History Allergic rhinitis Primary osteoarthritis of knees, bilateral Internal derangement of right shoulder Morbid obesity with BMI of 40.0-44.9, adult Anxiety Insomnia Overactive bladder Varicose veins of leg with edema Obstructive sleep apnea Constipation GERD without esophagitis Vitamin D deficiency Inflammatory polyarthropathy Diabetes mellitus Benign essential hypertension Surgical History History of surgery History of cardiac catheterization History of cataract surgery Family History Father Heart disease CVD (cardiovascular disease) Mother CVD (cardiovascular disease) Diabetes Heart disease Brother Mental problem Social History Household Members: None Housing: Apartment Alcohol intake: never Patient Tobacco Use Status: Never used Tobacco e-Cigarette/Vaping Use: Never Used Second Hand Smoke Exposure: No service: No Current occupational status: disabled Cognitive needs: No Hearing needs: No Vision needs: Yes Review of Systems Const All systems reviewed & are unremarkable except as noted in HPI and below Physical Exam Vital Signs: Last Vital Signs Pulse 60 06/12/24 10:00 BP 150/67 H 06/12/24 10:00 Pulse Ox 97 06/12/24 10:00 Oxygen Delivery Method Room Air 06/12/24 10:00 BMI result Body Mass Index 40.0 General: Appears afebrile. Alert and oriented. Mood and affect appropriate. Follows and participates in conversation appropriately. Respiratory effort is unlabored. No cough. Able to transition from sit to stand unassisted. Uses cane with ambulation. Ambulates with bilaterally normal heel strike and toe off. Extrem Other: Morbidly obese bilateral lower extremities with notable varicose and spider veins with pain and inflammation. General: Yes capillary refill normal, Yes no calf tenderness and Yes pedal edema Right lower extremity: knee (Limited ROM due to pain.) Details: normal to inspection, tenderness Location: of the lateral joint line and crepitus; no swelling, no ecchymosis and no unusual warmth Left lower extremity: knee (Limited ROM due to pain.) Details: tenderness Location: of the patella, of the medial joint line and of the lateral joint line, swelling Location: of the distal upper leg Details: anteromedially and crepitus; no ecchymosis and no unusual warmth Assessment & Plan Assessment & Plan (1) Primary osteoarthritis of knees, bilateral: Code(s): M17.0 - Bilateral primary osteoarthritis of knee Category: Medical (2) Bilateral knee pain: Code(s): M25.561 - Pain in right knee; M25.562 - Pain in left knee Category: Medical (3) Morbid obesity with BMI of 40.0-44.9, adult: Code(s): E66.01 - Morbid (severe) obesity due to excess calories; Z68.41 - Body mass index [BMI] 40.0-44.9, adult Category: Medical Plan Discussed interventional and medical treatments for chronic bilateral knee pain due to advanced OA. Patient would like to avoid total knee replacement surgery. Discussed Sprint PNS, genicular RFA and PNS trial vs implant. Informational pamphlets were provided to patient and family in Malay and [place]. Schedule bilateral Synvisc knee injections with local and fluoroscopy, pain is worse on the left side. Expectations, risks and benefits were reviewed. Patient is aware she will be contacted to schedule this procedure. Patient states she is working on weight loss with assistance of [facility] provider with follow up every 4-5 months. Current BMI=40, A1C=6.4. Scripts provided for Celebrex and lidocaine patches. Side effects and precautions were discussed with patient and family. All questions and concerns have been answered and patient and family agreed with the treatment plan. Follow-up after injections and sooner as needed. Medications: New celecoxib Take it with food and full glass of water 200 mg PO BID PRN 60 caps 0RF pain M17.0 - Bilateral primary osteoarthritis of knee, M25.561 - Pain in right knee, M25.562 - Pain in left knee lidocaine 5% leave on most painful area for up to 12 hrs topical 60 ea 1RF pain M17.0 - Bilateral primary osteoarthritis of knee, M25.561 - Pain in right knee, M25.562 - Pain in left knee Discontinued ibuprofen Discontinued Reason: Doctor's Order 800 mg PO Q8H PRN 90 tabs 0RF for pain M25.572 - Pain in left ankle and joints of left foot Coding Level of Care Code New Pt Level 4 (65680) Diagnoses Primary osteoarthritis of knees, bilateral M17.0 Bilateral knee pain M25.561; M25.562 Morbid obesity with BMI of 40.0-44.9, adult E66.01; Z68.41
[2024-06-12 10:00] VITALS: BP 150/67; PULSE 60; O2SAT 97; BMI 40.0
== END 2024-06-12 10:48 | disposition home or self-care (01) ==
PROVIDERS: PCP Internal Medicine; Visit Provider Nurse Practitioner Family
DX: M17.0 Bilateral primary osteoarthritis of knee (principal); M25.561 Pain in right knee; M25.562 Pain in left knee; E66.01 Morbid (severe) obesity due to excess calories; Z68.41 Body mass index [BMI] 40.0-44.9, adult
CPT/HCPCS: 99204; 99214

== ENCOUNTER → 2024-06-12 09:46 | Outpatient (BNVA) | payer MEDICARE, MEDICAID, SELFPAY | PROVIDERS: PCP Internal Medicine; Visit Provider Nurse Practitioner Family | DX: M17.0 Bilateral primary osteoarthritis of knee (principal); E66.01 Morbid (severe) obesity due to excess calories; Z68.41 Body mass index [BMI] 40.0-44.9, adult | CPT/HCPCS: 99202 ==

== ENCOUNTER 2024-09-19 07:44 | Outpatient (REF) | payer MEDICARE, MEDICAID, SELFPAY ==
[2024-09-19 07:54] LABS: MANUAL DIFF FLAG NO
[2024-09-19 08:11] LABS: Basophils Absolute Auto 0.1 X10*3/uL (0.0-0.2); Basophils Percent Auto 0.7 % (0-2); Eosinophils Absolute Auto 0.2 X10*3/uL (0.0-0.4); Eosinophils Percent Auto 1.8 % (0-4); Hematocrit 44.5 % (37.0-47.0); Hemoglobin 14.2 g/dl (12.0-16.0); Imm Gran Abs Auto 0.04 X10*3/uL (0.00-0.03); Imm Gran Pct Auto 0.4 % (0.0-0.4); Lymphocytes Absolute Auto 2.2 X10*3/uL (1.2-4.9); Lymphocytes Percent Auto 23.7 % (20-40); Mean Corpuscular HGB Conc 31.9 g/dl (31.0-35.0); Mean Corpuscular Hemoglobin 27.4 pg (27.0-33.0); Mean Corpuscular Volume 85.7 fL (80.0-98.0); Mean Platelet Volume 9.4 fL (9.4-12.3); Monocytes Absolute Auto 0.8 X10*3/uL (0.1-1.2); Monocytes Percent Auto 9.1 % (2-11); Neutrophils Absolute Auto 5.9 x10*3/uL (2.0-8.3); Neutrophils Percent Auto 64.3 % (45-73); Platelet Count 326 X10*3/uL (160-400); Red Blood Count 5.19 X10*6/uL (4.20-5.50); Red Cell Distribution Width 14.4 % (11.0-16.0); White Blood Count 9.1 X10*3/uL (4.8-10.8)
[2024-09-19 08:19] LABS: Estimated Average Glucose 146 mg/dL; Hemoglobin A1C 183.0549 umol/L; Hemoglobin A1c % 6.7 % (<6.0); Total Hemoglobin (HGBA1C) 3715.3312 umol/L
[2024-09-19 08:24] LABS: Appearance Urine Clear; Color Urine Yellow; Glucose Urine UA Negative (Negative); Leukocyte Esterase Urine Small (1+) (Negative); Nitrite Urine Negative (Negative); PH 6.5 (5.0-9.0); UMIC TRIGGER UACC YES; Urine Blood Negative (Negative); Urine Ketones Negative (Negative); Urine Protein Negative (Neg-Trace)
[2024-09-19 08:40] LABS: Bacteria Urine None Seen (None Seen); Hyaline Casts Urine 0-2 /LPF (0-2); RBC Urine 0-2 /HPF (0-2); UACC Culture Trigger YES; WBC Urine 0-5 /HPF (0-5)
[2024-09-19 09:06] LABS: Alanine Aminotransferase 31 U/L (0-31); Alkaline Phosphatase 69 U/L (39-117); Anion Gap 12 (12-20); Aspartate Amino Transferase 30 U/L (5-31); Bilirubin Total 0.4 mg/dL (0.0-1.0); Blood Urea Nitrogen 25 mg/dL (9-16); Calcium 10.6 mg/dL (8.4-10.2); Carbon Dioxide 28 mmol/L (22-29); Chloride 104 mmol/L (96-108); Cholesterol 168 mg/dL (<200); Estimated Glomerular Filt Rate > 60; Glucose Fasting 125 mg/dL (60-99); HDL Cholesterol 42 mg/dL (>40); LDL Cholesterol Calculated 80 mg/dL (<100); Potassium 4.3 mmol/L (3.3-5.1); Sodium 140 mmol/L (135-145); Total Protein 8.3 g/dL (6.5-8.0); Triglycerides 234 mg/dL (<150)
[2024-09-19 09:10] LABS: TSH reflex Free T4 1.59 uIU/mL (0.32-4.0); Vitamin D 25-OH Total 33.8 ng/mL (>30)
[2024-09-19 09:22] LABS: Creatinine Urine 102.31 mg/dL; Microalbum/Creatinine Ratio Ur 10.7 ug/mg cr (<30)
== END 2024-09-19 07:45 | disposition home or self-care (01) ==
LOC: HO.LAB 07:44
PROVIDERS: PCP Internal Medicine; Visit Provider Internal Medicine
DX: E78.00 Pure hypercholesterolemia, unspecified (principal); E11.9 Type 2 diabetes mellitus without complications; D64.9 Anemia, unspecified; E55.9 Vitamin D deficiency, unspecified; R30.0 Dysuria
CPT/HCPCS: 36415; 80053; 80061; 81001; 82043; 82306; 82570; 83036; 84443; 85025; 87086

== ENCOUNTER 2024-09-21 10:37 | Outpatient (AMB) | payer MEDICARE, MEDICAID, SELFPAY ==
[2024-09-21 10:38] VITALS: BP 116/64; PULSE 58; O2SAT 97; BMI 38.5
--- NOTE | 2024-09-21 10:38 | A.OFFPC_ITS ---
Vital Signs 09/21/24 10:38 Height 5 ft 4 in Weight 224 lb 8 oz BMI 38.5 BP 116/64 Blood Pressure Location Lt brachial Position Sitting Pulse 58 Pulse Source Pulse Oximeter Pulse Oximetry (%) 97 Oxygen Delivery Method Room Air Intake Visit Reasons: 3mth f/u Intake Note: Patient stated she has been feeling dizzy. Rn Gastroenterology Required: No Accompanied by: Self / Same As Patient Allergies tramadol Adverse Reaction (Intermediate, Verified 09/21/24 11:26) Stomach Upset Medication List - Last Reconciled 09/21/24 by Anthony Lui MD acetaminophen 500 mg PO Q6H PRN aspirin 81 mg PO QAM 90 days atorvastatin 20 mg PO BEDTIME 90 days blood sugar diagnostic (FreeStyle Lite Strips) 1 strip miscellaneous DAILY blood-glucose meter (FreeStyle Lite Meter kit) As directed [CANE As directed] celecoxib 200 mg PO BID PRN cetirizine 10 mg PO BEDTIME PRN 90 days ergocalciferol (vitamin D2) (Vitamin D2) 1,250 mcg PO QWEEK fenofibrate 160 mg PO DAILY 90 days fluticasone propionate 50 mcg/actuation 2 sprays intranasal DAILY PRN 30 days folic acid 1 mg PO QAM [free style glucometer As directed] furosemide 40 mg PO DAILY hydrochlorothiazide 25 mg PO QAM lancets (TRUEplus Lancets) USE TO TEST BLOOD SUGAR FOUR TIMES DAILY lidocaine 5% leave on most painful area for up to 12 hrs topical metformin 1,000 mg PO BID metoprolol tartrate 50 mg PO BID miscellaneous medical supply 1 ea miscellaneous DAILY miscellaneous medical supply 1 ea miscellaneous DAILY omeprazole 20 mg PO QAM potassium chloride ER 10 mEq PO DAILY sertraline 50 mg PO DAILY 30 days [SHOWER CHAIR As directed] sitagliptin phosphate (Januvia) 100 mg PO QAM tizanidine 2 mg PO Q8H PRN valsartan 320 mg PO QAM zolpidem 5 mg PO BEDTIME PRN 30 days Tobacco use date assessed: 09/21/24 Fall risk assessment: 1 Fall in past year Last assessed Fall Risk: 09/21/24 Dental Screening Dental Screen Date: 09/21/24 Did you have a dental visit in the last 12 months?: Yes Did you have a dental problem in the last 6 months where you did not have access to dental care?: No Was dental information given to patient?: Patient has dentist HPI 3mth f/u HPI Details Patient comes in today for her follow up visit States that has been experiencing recurrent dizziness for the past few weeks Relates that she fell while getting out of [place] last month on 08/20/24 and apparently hit the right side of her head on the pavement Patient thinks that she passed out briefly after she hit her head but is not sure for how long - thinks that it was probably only for a few seconds - and she eventually picked herself slowly up from the ground as she was alone at the time and there was no one around to help her when she fell States that she was already having occasional dizzy spells before her fall but feels that these have been occurring more frequently since she hit her head last month She denies any increased headaches since and has not had any increased nausea or vomiting lately She denies any chest pains, no increased SOB No abdominal pain and no change in bowel habits noted She had her follow up labs done a couple of days ago - to discuss her results [facility] Medical History Allergic rhinitis Primary osteoarthritis of knees, bilateral Internal derangement of right shoulder Morbid obesity with BMI of 40.0-44.9, adult Anxiety Insomnia Overactive bladder Varicose veins of leg with edema Obstructive sleep apnea Constipation GERD without esophagitis Vitamin D deficiency Inflammatory polyarthropathy Diabetes mellitus Benign essential hypertension Surgical History History of surgery History of cardiac catheterization History of cataract surgery Family History Father Heart disease CVD (cardiovascular disease) Mother CVD (cardiovascular disease) Diabetes Heart disease Brother Mental problem Social History Household Members: None Housing: Apartment Alcohol intake: never Patient Tobacco Use Status: Never used Tobacco e-Cigarette/Vaping Use: Never Used Second Hand Smoke Exposure: No service: No Current occupational status: disabled Cognitive needs: No Hearing needs: No Vision needs: Yes Questionnaire PHQ-9 Over the last 2 weeks, how often have you been bothered by any of the following problems? 1. Little interest or pleasure in doing things: not at all 2. Feeling down, depressed, or hopeless: not at all 3. Trouble falling or staying asleep, or sleeping too much: more than half the days 4. Feeling tired or having little energy: not at all 5. Poor appetite or overeating: not at all 6. Feeling bad about yourself - or that you are a failure or have let yourself or your family down: not at all 7. Trouble concentrating on things, such as reading the newspaper or watching television: not at all 8. Moving or speaking so slowly that other people could have noticed. Or the opposite - being so fidgety or restless that you have been moving around a lot more than usual: not at all 9. Thoughts that you would be better off or of hurting yourself in some way: not at all Total score: 2 Depression Screening Interpretation: Positive Depression Screening Follow-up: Existing condition and In treatment Depression Screening Done: Yes 51964 - PHQ-9 Billing: Yes Source: Developed by Drs. Kelvin Cates, Candice Bryant, Keith Nevarez and colleagues, with an educational kailyn from [employer]. Thrive Questionnaire Date Thrive assessed: 09/21/24 I am a: Patient What is your living situation today?: I have a steady place to live Within the past 12 months, did the food you bought not last and you didn't have the money to get more?: Never true Within the past 12 months, did you worry whether your food would run out before you got money to buy more?: Never true Do you have trouble paying for medicines?: No Do you have trouble getting transportation to medical appointments?: No Do you have trouble paying your heating and electricity bill?: No Do you have trouble taking care of your child, family member or friend?: No Do you have trouble with day-to-day activities such as bathing, preparing meals, shopping, managing finances, etc.?: No Are you currently unemployed and looking for a job?: No Are you interested in more education?: No Please select the resources that you would like help with: None Currently or been in a relationship where the following occur: No concerns reported THRIVE Score: 0 AUDIT C Alcohol Use Questionnaire (AUDIT-C) 1. How often do you have a drink containing alcohol?: Never Total Score: 0 Score Reviewed/Action Taken: Yes ELIESER-7 AMB Questionnaire ELIESER-7 Date ELIESER - 7 assessed: 09/21/24 Feeling nervous, anxious, or on edge: 0 = Not at all Not being able to stop or control worryin = Not at all Worrying too much about different things: 0 = Not at all Trouble relaxin = Not at all Being so restless that it is hard to sit still: 0 = Not at all Becoming easily annoyed or irritable: 0 = Not at all Feeling afraid as if something awful might happen: 0 = Not at all Total ELIESER-7 score (0-4 normal; 5-9 mild; 10-14 moderate; 15-21 severe): 0 Source: Developed by Drs. Kelvin Cates, Candice Bryant, Keith Nevarez and colleagues, with an educational kailyn from [employer]. Review of Systems Const Denies chills, Reports difficulty sleeping, Reports fatigue, Denies fever(s) and Denies headache(s) ENT Denies dysphagia, Reports dizziness (recurrent - see HPI), Denies otalgia, Denies headache(s), Reports neck pain, Denies odynophagia and Denies sore throat Card Denies chest pain, Denies palpitations and Denies dyspnea Resp Denies chest congestion, Denies cough and Denies dyspnea GI Denies abdominal pain, Denies constipation, Denies dysphagia, Denies heartburn, Denies diarrhea, Denies nausea, Denies odynophagia and Denies vomiting Denies difficulty voiding, Denies nocturia, Denies dysuria and Denies urinary urgency Musc Details: frequent increased pain over both lower extremities Reports back pain, Reports arthralgias (multiple joints, especially over both knees) and Reports neck pain Skin/Breast Denies rash Neuro Reports dizziness (recurrent - see HPI) and Denies headache(s) Psych Reports anxiety and Reports depression Endo Reports fatigue and Denies palpitations Aller/Immun Reports seasonal rhinorrhea (worse at night lately) Physical exam (Primary Care) Vital Signs: Last Vital Signs Pulse 58 09/21/24 10:38 BP 116/64 09/21/24 10:38 Pulse Ox 97 09/21/24 10:38 Oxygen Delivery Method Room Air 09/21/24 10:38 BMI result Body Mass Index 38.5 Tobacco/Smoking Status: Tobacco use Status Tobacco use date assessed 09/21/24 09/21/24 10:47 Patient Tobacco Use Status Never used Tobacco 09/21/24 10:47 e-Cigarette/Vaping Use Never Used 09/21/24 10:47 PHQ-9: PHQ-9 Score PHQ-9: Total score 2 09/21/24 11:27 Depression Screening Interpretation: Positive Depression Screening Follow-up: Existing condition and In treatment Thrive Assessment: Date of Thrive Assessment Date Thrive assessed 09/21/24 09/21/24 10:47 Currently or been in a relationship where the following occur: No concerns reported Const General: no acute distress and alert Orientation/consciousness: patient oriented x3 HENMT Ears: TM's normal bilaterally and EAC's normal Throat: Yes posterior oropharynx normal and Yes tonsils normal (no TP congestion noted) Neck Neck: Yes no lymphadenopathy and Yes supple Thyroid: Thyroid normal Resp Auscultation: clear to auscultation bilaterally, no rales and no wheezes Cardio Rate: regular rate Rhythm: regular rhythm Heart sounds: no murmurs GI Palpation (GI): Soft to palpation and nontender Auscultation: normal bowel sounds General: Yes no CVA tenderness Back/Spine/Pelvis Back: no CVA tenderness Cervical Spine: Cervical spine tenderness Thoracic/Lumbar Spine: thoracic spinal tenderness and lumbar spinal tenderness Skin Rashes: no rashes Neuro General: patient oriented x3, moves all extremities and no focal motor deficits Cognition (Neuro): normal cognition Extrem Other: (+) prominent varicose veins over both lower extremities General: No clubbing, No cyanosis and Yes edema ((+) chronic 2+ bilateral lower extremity edema with varicosities) Right upper extremity: shoulder/upper arm Details: tenderness Left upper extremity: shoulder/upper arm Details: tenderness Right lower extremity: knee Details: tenderness and swelling (mild) Left lower extremity: knee Details: tenderness Location: of the medial joint line and swelling (mild) and ankle Details: tenderness Location: of the lateral malleolus and swelling Details: laterally Results Reviewed Results Reviewed: Laboratory Tests 09/19/24 09/19/24 07:52 07:53 WBC 9.1 Hgb 14.2 Hct 44.5 Plt Count 326 D Sodium 140 Potassium 4.3 Creatinine 0.91 Estimated GFR > 60 Fasting Glucose 125 H Hemoglobin A1c % 6.7 H Calcium 10.6 H D AST 30 ALT 31 Triglycerides 234 H Cholesterol 168 LDL Cholesterol, Calc 80 HDL Cholesterol 42 25-OH Vitamin D Total 33.8 TSH 1.59 Ur Specific [place] 1.020 Urine Protein Negative Urine Glucose (UA) Negative Urine Blood Negative Urine Nitrite Negative Ur Leukocyte Esterase Small (1+) H Microalb/Creat Ratio 10.7 Coding Level of Care Code Est Pt Level 4 (70086) Complex EM visit Add On G2211 Diagnoses Dizziness R42 Mixed hyperlipidemia E78.2 Type 2 diabetes mellitus without complication, without long-term current use of insulin E11.9 Diabetes mellitus type: type 2 Diabetes mellitus fdc insulin use: without gullet slitter use Diabetes mellitus complication status: without complication Benign essential hypertension I10 Primary osteoarthritis of knees, bilateral M17.0 Rotator cuff arthropathy of left shoulder M12.812 Inflammatory polyarthropathy M06.4 Varicose veins of both legs with edema I83.893 Laterality: bilateral Vitamin D deficiency E55.9 GERD without esophagitis K21.9 Constipation, unspecified constipation type K59.00 Constipation type: unspecified constipation type Allergic rhinitis, unspecified seasonality, unspecified trigger J30.9 Allergic rhinitis trigger: unspecified Allergic rhinitis seasonality: unspecified Obstructive sleep apnea G47.33 Overactive bladder N32.81 Insomnia, unspecified type G47.00 Insomnia type: unspecified Anxiety F41.9 Morbid obesity with BMI of 40.0-44.9, adult E66.01; Z68.41 Additional Codes PHQ-9 - 70450 - PHQ-9 Billing: Yes ([id number]) Assessment & Plan Assessment & Plan (1) Dizziness: Code(s): R42 - Dizziness and giddiness Category: Medical Plan: S/P fall and head trauma last month on 08/20/2024 (see HPI for details) Patient reports experiencing increasing dizziness since her fall and head strike - she has not yet been evaluated since her injury Will send patient for a head CT [place] for further evaluation (2) Mixed hyperlipidemia: Code(s): E78.2 - Mixed hyperlipidemia Category: Medical Plan: Results of her labs done a couple of days ago reviewed and discussed with patient Reinforced low cholesterol diet Continue Atorvastatin 20 mg QD and Fenofibrate 160 mg QD Will recheck her labs and fasting lipids in 3 months for follow-up (3) Diabetes mellitus: Code(s): E11.9 - Type 2 diabetes mellitus without complications Category: Medical Qualifiers: Diabetes mellitus type: type 2 Diabetes mellitus gullet slitter insulin use: without fdc use Diabetes mellitus complication status: without complication Qualified Code(s): E11.9 - Type 2 diabetes mellitus without c omplications Plan: Her HgbA1c has risen slightly from previous to 6.7% on her recent labs (was previously at 6.4% a few months ago) - goal is < 7.0% Reinforced diabetic diet Continue Metformin 1000 mg BID and Januvia 100 mg QD for now but advised that if her glycemic control continues to regress, we will need to start her on additional Rx for her diabetes at her next follow up visit (4) Benign essential hypertension: Code(s): I10 - Essential (primary) hypertension Category: Medical Plan: Reinforced low-sodium diet - goal is systolic BP of at least 130 mm or less Continue Valsartan 320 mg QD, Metoprolol Tartrate 50 mg BID and HCTZ 25 mg QD; she is also on Furosemide 40 mg once a day in AM but this is more for her lower extremity edema (5) Primary osteoarthritis of knees, bilateral: Code(s): M17.0 - Bilateral primary osteoarthritis of knee Category: Medical Plan: X-rays of both knees done a few months ago revealed (+) moderate to severe OA changes in both knees, with slight progression from previous She has been referred to orthopedics and has received cortisone injections into her knees but states that they only provide her with a few months of relief at most Follow up with orthopedics as scheduled although she remains very hesitant about undergoing knee replacement surgery She also was not able to tolerate Tramadol when it was prescribed to help with her pain a few years ago She was referred to Pain Management at her last visit to explore alternative pain management options and she is now following up with pain management regularly (6) Rotator cuff arthropathy of left shoulder: Code(s): M12.812 - Other specific arthropathies, not elsewhere classified, left shoulder Category: Medical Plan: MRI of the left shoulder done a few months ago revealed (+) complete, full- thickness tear of the supraspinatus tendon She has been advised by orthopedics that she may require surgery, especially if her shoulder symptoms progress/get worse Follow up with orthopedics as scheduled (7) Inflammatory polyarthropathy: Code(s): M06.4 - Inflammatory polyarthropathy Category: Medical Plan: Patient used to take Methotrexate and follow-up with Rheumatology but she has not seen them for a few years now - states that her joint pains have been well- controlled lately, other than her left shoulder and her knees Continue Acetaminophen 500 mg every 6 hours as needed Will consider referring to [facility] Rheumatology for further evaluation and management again if her symptoms get worse (8) Varicose veins of leg with edema: Code(s): I83.899 - Varicose veins of unspecified lower extremity with other complications Category: Medical Qualifiers: Laterality: bilateral Qualified Code(s): I83.893 - Varicose veins of bilateral lower extremities with other complications Plan: S/P EVLT with Dr. Jj last year (2022) Follow up with vascular surgery as scheduled (9) Vitamin D deficiency: Code(s): E55.9 - Vitamin D deficiency, unspecified Category: Medical Plan: Continue Vitamin D2 58926 units once a week (10) GERD without esophagitis: Code(s): K21.9 - Gastro-esophageal reflux disease without esophagitis Category: Medical Plan: Dietary restrictions reinforced Continue Omeprazole 20 mg QD (11) Constipation: Code(s): K59.00 - Constipation, unspecified Category: Medical Qualifiers: Constipation type: unspecified constipation type Qualified Code(s): K59.00 - Constipation, unspecified Plan: She is again encouraged on increased oral fluids and dietary fiber Continue MiraLax 17 gm QD and Senna 8.6 mg 1 tablet once a day as needed (12) Allergic rhinitis: Code(s): J30.9 - Allergic rhinitis, unspecified Category: Medical Qualifiers: Allergic rhinitis trigger: unspecified Allergic rhinitis seasonality: unspecified Qualified Code(s): J30.9 - Allergic rhinitis, unspecified Plan: Continue Cetirizine 10 mg Q PM and Fluticasone 50 mcg nasal spray QD PRN (13) Obstructive sleep apnea: Code(s): G47.33 - Obstructive sleep apnea (adult) (pediatric) Category: Medical Plan: Patient has an AutoPAP / CPAP device but admits that she has not used it in a few years now as it is not comfortable to keep on when she is sleeping at night She has been advised to try sleeping on her side to help reduce her snoring Follow up with Sleep Medicine as scheduled (14) Overactive bladder: Code(s): N32.81 - Overactive bladder Category: Medical Plan: Follow up with Urology as scheduled (15) Insomnia: Code(s): G47.00 - Insomnia, unspecified Category: Medical Qualifiers: Insomnia type: unspecified Qualified Code(s): G47.00 - Insomnia, unspecified Plan: Sleep hygiene reinforced She was previously started back on Zolpidem 5 mg Q HS PRN as she reports feeling very dizzy whenever she took Trazodone 100 mg Q HS in the past (16) Anxiety: Code(s): F41.9 - Anxiety disorder, unspecified Category: Medical Plan: Continue Lorazepam 1 mg BID as needed and Sertraline 50 mg QD (17) Morbid obesity with BMI of 40.0-44.9, adult: Code(s): E66.01 - Morbid (severe) obesity due to excess calories; Z68.41 - Body mass index [BMI] 40.0-44.9, adult Category: Medical Plan: Reinforced diet; exercise and weight loss are unrealistic given patient multiple physical issues and comorbidities Plan Follow up in 3 months Orders: Orders CT head/brain wo IV con Today R42 - Dizziness and giddiness, S09.90XA - Unspecified injury of head, initial encounter, W19.XXXA - Unspecified fall, initial encounter UA CC w/rflx Micro + Cult 3 Months R30.0 - Dysuria Complete Blood Count Auto Diff 3 Months D64.9 - Anemia, unspecified Comprehensive [place]. Panel Fast 3 Months E78.00 - Pure hypercholesterolemia, unspecified Lipid Panel 3 Months E78.00 - Pure hypercholesterolemia, unspecified Hemoglobin A1c 3 Months E11.9 - Type 2 diabetes mellitus without complications Microalbumin, Random (w Creat) 3 Months E11.9 - Type 2 diabetes mellitus without complications Vitamin D 25-OH Total 3 Months E55.9 - Vitamin D deficiency, unspecified
== END 2024-09-21 11:42 | disposition home or self-care (01) ==
LOC: HO.HMCH 10:37
PROVIDERS: PCP Internal Medicine; Visit Provider Internal Medicine
DX: E11.9 Type 2 diabetes mellitus without complications (principal); M06.4 Inflammatory polyarthropathy; E66.01 Morbid (severe) obesity due to excess calories; Z68.41 Body mass index [BMI] 40.0-44.9, adult; R42 Dizziness and giddiness; E78.2 Mixed hyperlipidemia; I10 Essential (primary) hypertension; M17.0 Bilateral primary osteoarthritis of knee; M12.812 Other specific arthropathies, not elsewhere classified, left shoulder; I83.893 Varicose veins of bilateral lower extremities with other complications; E55.9 Vitamin D deficiency, unspecified; K21.9 Gastro-esophageal reflux disease without esophagitis

== ENCOUNTER → 2024-09-21 10:37 | Outpatient (BNVA) | payer MEDICARE, MEDICAID, SELFPAY | PROVIDERS: PCP Internal Medicine; Visit Provider Internal Medicine | DX: R42 Dizziness and giddiness (principal); E78.2 Mixed hyperlipidemia; E11.9 Type 2 diabetes mellitus without complications; I10 Essential (primary) hypertension; M12.812 Other specific arthropathies, not elsewhere classified, left shoulder; M06.4 Inflammatory polyarthropathy; I83.893 Varicose veins of bilateral lower extremities with other complications; E55.9 Vitamin D deficiency, unspecified; K21.9 Gastro-esophageal reflux disease without esophagitis; K59.00 Constipation, unspecified; J30.9 Allergic rhinitis, unspecified; G47.33 Obstructive sleep apnea (adult) (pediatric); N32.81 Overactive bladder; G47.00 Insomnia, unspecified; F41.9 Anxiety disorder, unspecified; E66.01 Morbid (severe) obesity due to excess calories; Z68.41 Body mass index [BMI] 40.0-44.9, adult; Z71.3 Dietary counseling and surveillance | CPT/HCPCS: 96127; 99212 ==

== ENCOUNTER 2024-10-04 09:39 | Outpatient (REF) | payer MEDICARE, MEDICAID, SELFPAY | END 2024-10-04 09:40 | disposition home or self-care (01) | LOC: HO.CT 09:39 | PROVIDERS: PCP Internal Medicine; Visit Provider Internal Medicine | DX: S09.90XA Unspecified injury of head, initial encounter (principal); W19.XXXA Unspecified fall, initial encounter; R42 Dizziness and giddiness | CPT/HCPCS: 70450 ==

== ENCOUNTER 2025-03-26 10:49 | Outpatient (REF) | payer MEDICARE, MEDICAID, SELFPAY | END 2025-03-26 10:50 | disposition home or self-care (01) | LOC: HO.MAMMO 10:49 | PROVIDERS: Visit Provider Internal Medicine | DX: Z12.31 Encounter for screening mammogram for malignant neoplasm of breast (principal) | CPT/HCPCS: 77063; 77067 ==

== ENCOUNTER → 2025-03-26 11:15 | Outpatient (BNV) | payer MEDICARE, MEDICAID, SELFPAY | PROVIDERS: Visit Provider Internal Medicine | DX: Z12.31 Encounter for screening mammogram for malignant neoplasm of breast (principal) | CPT/HCPCS: 77063; 77067 ==

== ENCOUNTER 2025-04-10 09:32 | Outpatient (AMB) | payer MEDICARE, MEDICAID, SELFPAY ==
--- NOTE | 2025-04-10 09:36 | A.OFFVIS_ITS ---
Vital Signs 04/10/25 09:42 Height 5 ft 4 in Weight 242 lb 8 oz BMI 41.6 BP 180/79 H Blood Pressure Location Rt brachial Position Sitting Pulse 53 Pulse Source Pulse Oximeter Pulse Oximetry (%) 98 Oxygen Delivery Method Room Air Intake Visit Reasons: Follow Up Intake Note: Pain today 8/10 bilateral knee pain, left worse than right. 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 Floorperson Offered & Declined Sewing Machine Operator Floorperson Name: Natalie- Grand daughter Accompanied by: Grand Child Allergies tramadol Adverse Reaction (Intermediate, Verified 04/10/25 09:43) Stomach Upset Medication List - Last Reconciled 04/10/25 by [facility] acetaminophen 500 mg PO Q6H PRN aspirin 81 mg PO QAM 90 days atorvastatin 20 mg PO BEDTIME 90 days blood sugar diagnostic (FreeStyle Lite Strips) 1 strip miscellaneous DAILY blood-glucose meter (FreeStyle Lite Meter kit) As directed [CANE As directed] celecoxib 200 mg PO BID PRN cetirizine 10 mg PO BEDTIME PRN 90 days ergocalciferol (vitamin D2) (Vitamin D2) 1,250 mcg PO QWEEK fenofibrate 160 mg PO DAILY 90 days fluticasone propionate 50 mcg/actuation 2 sprays intranasal DAILY PRN 30 days folic acid 1 mg PO QAM [free style glucometer As directed] furosemide 40 mg PO DAILY hydrochlorothiazide 25 mg PO QAM lancets (TRUEplus Lancets) USE TO TEST BLOOD SUGAR FOUR TIMES DAILY lidocaine 5% 2 patches topical DAILY 30 days metformin 1,000 mg PO BID metoprolol tartrate 50 mg PO BID miscellaneous medical supply 1 ea miscellaneous DAILY miscellaneous medical supply 1 ea miscellaneous DAILY omeprazole 20 mg PO QAM potassium chloride ER 10 mEq PO DAILY 90 days sertraline 50 mg PO DAILY 30 days [SHOWER CHAIR As directed] tizanidine 2 mg PO Q8H PRN valsartan 320 mg PO QAM HPI Comments Details: The patient is a 69-year-old female presenting with bilateral knee osteoarthritis, more severe in the left knee. In a prior visit in May 2024, we discussed peripheral nerve stimulation and radiofrequency ablation as alternatives to knee replacement, which she wanted to avoid. Gel injections were considered but declined as her knee pain subsided temporarily. She continues to experience aching in her left knee, influencing her decision on injection scheduling. Lidocaine patches have partially alleviated her symptoms, and she maintains minimal use of analgesics like Tylenol and occasionally Celebrex. Her management is challenged by her elevated BMI, and while surgical options require weight loss, she focuses on less invasive therapies to manage her knee pain effectively. - Onset: Chronic, with notable exacerbation over time - Quality: Constant aching, sharp with certain movements - Primary Location: Left knee (worse than right) - Radiation: Bilateral, but left is more affected - Exacerbating Factors: Inconsistently more painful prior to appointments, walking, climbing stairs, cold weather - Relieving Factors: Lidocaine patches; avoidance of injections approached when pain is less severe - Interference: Affects daily activities; currently, no cane or consistent medication use beyond patches and occasional Tylenol - Affect: Patient reports constant aching affecting daily activities. - Analgesia: Uses lidocaine patches; takes Tylenol as needed; declines use of consistent stronger analgesics or injections. - Adverse Effects: No adverse effects from current pain regimen noted. - Activities of Daily Living: Pain impacts functionality, although she does not use a cane regularly. - Aberrant Drug Related Behaviors: None reported; uses medication as prescribed. PRIOR 06/12/24: Patient is a pleasant 68-year-old Kazakh-speaking female with history of diabetes, left shoulder pain, osteoarthritis, morbid obesity, varicose veins with inflammation, anxiety, presents today for initial evaluation for bilateral knee pain due to advanced osteoarthritis. Patient is not interested in total- knee replacement surgery and is looking for noninvasive treatment options. Patient reports left knee is worse than the right and increased with walking, cl imbing stairs, weight-bearing or changing positions. She reports mild pain while sitting or resting. Patient's family reports sedentary lifestyle for patient due to chronic daily pain and difficulty ambulating. Knee pain is worse in the mornings upon awakening and less severe in the afternoon. Patient reports previous cortisone injections, last injection in 12/2023 by [facility], which provided her 3-4 months of pain relief. She is not able to pursue physical therapy at this time due to significant pain is activities. Patient denies any fever, chills, rash, infection, weakness, footdrop, bladder or bowel dysfunction or saddle anesthesia. Location: Bilateral anterior and lateral aspects of both knees, left>right Duration: Chronic pain for many years Characteristics of symptom or complaint: Aching, stabbing, tight, squeezing, sore, dull, hurting, heavy Aggravating or associated factors: Cold weather, movements, climbing stairs, walking, bending Relieving factors: Rest, heat/ice therapy, Ibuprofen, Tylenol Treatment: Cortisone injections 12/2023 at [facility] Medical History Allergic rhinitis Primary osteoarthritis of knees, bilateral Internal derangement of right shoulder Morbid obesity with BMI of 40.0-44.9, adult Anxiety Insomnia Overactive bladder Varicose veins of leg with edema Obstructive sleep apnea Constipation GERD without esophagitis Vitamin D deficiency Inflammatory polyarthropathy Diabetes mellitus Benign essential hypertension Surgical History History of surgery History of cardiac catheterization History of cataract surgery Family History Father Heart disease CVD (cardiovascular disease) Mother CVD (cardiovascular disease) Diabetes Heart disease Brother Mental problem Social History Household Members: None Housing: Apartment Alcohol intake: never Patient Tobacco Use Status: Never used Tobacco e-Cigarette/Vaping Use: Never Used Second Hand Smoke Exposure: No service: No Current occupational status: disabled Cognitive needs: No Hearing needs: No Vision needs: Yes Review of Systems Const Details: - Musculoskeletal: Reports pain in bilateral knees, left worse than right. - Neurological: Denies weakness, instability, episodes of knee giving out or falls. All systems reviewed & are unremarkable except as noted in HPI and below Physical Exam Vital Signs: Last Vital Signs Pulse 53 04/10/25 09:42 BP 180/79 H 04/10/25 09:42 Pulse Ox 98 04/10/25 09:42 Oxygen Delivery Method Room Air 04/10/25 09:42 BMI result Body Mass Index 41.6 General: Appears afebrile. Alert and oriented. Mood and affect appropriate. Follows and participates in conversation appropriately. Respiratory effort is unlabored. No cough. Able to transition from sit to stand unassisted. Ambulates with bilaterally normal heel strike and toe off. Extrem Other: Bilateral lower extremities with notable varicose and spider veins with pain and inflammation, has pending US of lower extremities. General: Yes capillary refill normal, Yes no pedal edema, Yes no calf tenderness and No cyanosis Right lower extremity: knee (Limited ROM due to pain.) Details: normal to inspection, tenderness Location: of the lateral joint line and crepitus; no swelling, no ecchymosis and no unusual warmth Left lower extremity: knee (Limited ROM due to pain.) Details: tenderness Location: of the patella, of the medial joint line and of the lateral joint line, swelling Location: of the distal upper leg Details: anteromedially and crepitus; no ecchymosis and no unusual warmth Results Reviewed Results Reviewed: XR KNEE AP STANDING, BILATERAL 01/07/24 CLINICAL INFORMATION: Pain in unspecified knee. COMPARISON: Bilateral knees of 08/18/2023. TECHNIQUE: AP bilateral standing view of the knees was obtained. FINDINGS: The bones are diffusely demineralized. RIGHT KNEE: Redemonstration of advanced degenerative changes in the medial compartment with joint space narrowing and medial marginal osteophytes. Small lateral marginal osteophytes. Abundant scattered calcifications in the soft tissues. LEFT KNEE: Redemonstration of advanced degenerative changes with severe narrowing of the lateral compartment and genu valgus. Lateral and marginal osteophytes. IMPRESSION: Severe degenerative changes on the standing view of bilateral knees. Upcoming ultrasound scheduled for lower extremities to evaluate vascular concerns. Assessment & Plan Assessment & Plan (1) Primary osteoarthritis of knees, bilateral: Code(s): M17.0 - Bilateral primary osteoarthritis of knee Category: Medical (2) Bilateral knee pain: Code(s): M25.561 - Pain in right knee; M25.562 - Pain in left knee Category: Medical (3) Morbid obesity with BMI of 40.0-44.9, adult: Code(s): E66.01 - Morbid (severe) obesity due to excess calories; Z68.41 - Body mass index [BMI] 40.0-44.9, adult Category: Medical Plan Schedule bilateral Synvisc knee injections with local and fluoroscopy, pain is worse on the left side. Expectations, risks and benefits were reviewed. Patient is aware she will be contacted to schedule this procedure. Previously discussed interventional and medical treatments for chronic bilateral knee pain due to advanced OA. Patient would like to avoid total knee replacement surgery. Discussed Sprint PNS, genicular RFA and PNS trial vs implant. Her treatment plan continues to require attention to weight management due to her BMI, impacting surgical options. Current BMI=41.6, A1C=6.7. Refills sent for lidocaine patches. All questions and concerns have been answered and patient and family agreed with the treatment plan. Follow-up after injections and sooner as needed. Patient was informed and verbally consented to the use of an ambient scribe for clinic note documentation during this visit. Medications: Refilled lidocaine 5% 2 patches topical DAILY 30 days 60 patches 1RF M17.0 - Bilateral primary osteoarthritis of knee, M25.561 - Pain in right knee, M25.562 - Pain in left knee Coding Level of Care Code Est Pt Level 4 (67016) Complex EM visit Add On G2211 Diagnoses Primary osteoarthritis of knees, bilateral M17.0 Bilateral knee pain M25.561; M25.562 Morbid obesity with BMI of 40.0-44.9, adult E66.01; Z68.41
[2025-04-10 09:42] VITALS: BP 180/79; PULSE 53; O2SAT 98; BMI 41.6
== END 2025-04-10 09:56 | disposition home or self-care (01) ==
LOC: HO.PMC 09:33
PROVIDERS: Visit Provider Nurse Practitioner Family
DX: M17.0 Bilateral primary osteoarthritis of knee (principal); M25.561 Pain in right knee; M25.562 Pain in left knee; E66.01 Morbid (severe) obesity due to excess calories; Z68.41 Body mass index [BMI] 40.0-44.9, adult
CPT/HCPCS: 99214; G2211

== ENCOUNTER → 2025-04-10 09:32 | Outpatient (BNVA) | payer MEDICARE, MEDICAID, SELFPAY | PROVIDERS: Visit Provider Nurse Practitioner Family | DX: M17.0 Bilateral primary osteoarthritis of knee (principal); E66.01 Morbid (severe) obesity due to excess calories; Z68.41 Body mass index [BMI] 40.0-44.9, adult | CPT/HCPCS: 99212 ==

== ENCOUNTER 2025-05-14 06:38 | Outpatient (REF) | payer MEDICARE, MEDICAID, SELFPAY ==
[2025-05-14 07:05] LABS: MANUAL DIFF FLAG NO
[2025-05-14 07:57] LABS: Basophils Absolute Auto 0.1 X10*3/uL (0.0-0.2); Basophils Percent Auto 0.6 % (0-2); Eosinophils Absolute Auto 0.2 X10*3/uL (0.0-0.4); Eosinophils Percent Auto 2.8 % (0-4); Hematocrit 39.2 % (37.0-47.0); Hemoglobin 12.4 g/dl (12.0-16.0); Imm Gran Abs Auto 0.03 X10*3/uL (0.00-0.03); Imm Gran Pct Auto 0.4 % (0.0-0.4); Lymphocytes Absolute Auto 2.4 X10*3/uL (1.2-4.9); Lymphocytes Percent Auto 28.4 % (20-40); Mean Corpuscular HGB Conc 31.6 g/dl (31.0-35.0); Mean Corpuscular Hemoglobin 27.2 pg (27.0-33.0); Mean Platelet Volume 9.6 fL (9.4-12.3); Monocytes Absolute Auto 0.7 X10*3/uL (0.1-1.2); Monocytes Percent Auto 7.9 % (2-11); Neutrophils Percent Auto 59.9 % (45-73); Platelet Count 254 X10*3/uL (160-400); Red Blood Count 4.56 X10*6/uL (4.20-5.50); Red Cell Distribution Width 14.4 % (11.0-16.0); White Blood Count 8.3 X10*3/uL (4.8-10.8)
[2025-05-14 08:07] LABS: Estimated Average Glucose 148 mg/dL; Hemoglobin A1c % 6.8 % (<6.0)
[2025-05-14 08:16] LABS: Appearance Urine Clear; Color Urine Yellow; Glucose Urine UA Negative (Negative); Leukocyte Esterase Urine Negative (Negative); Nitrite Urine Negative (Negative); PH 8.5 (5.0-9.0); Specific Gravity - Urine 1.015 (1.005-1.025); Urine Blood Negative (Negative); Urine Ketones Negative (Negative); Urine Protein Negative (Neg-Trace)
[2025-05-14 08:32] LABS: Alanine Aminotransferase 20 U/L (0-31); Albumin Level 3.8 g/dL (3.5-5.0); Alkaline Phosphatase 69 U/L (39-117); Anion Gap 11 (12-20); Aspartate Amino Transferase 21 U/L (5-31); Bilirubin Total 0.3 mg/dL (0.0-1.0); Blood Urea Nitrogen 24 mg/dL (9-16); Calcium 9.6 mg/dL (8.4-10.2); Carbon Dioxide 28 mmol/L (22-29); Chloride 107 mmol/L (96-108); Cholesterol 160 mg/dL (<200); Estimated Glomerular Filt Rate > 60; Glucose Fasting 135 mg/dL (60-99); HDL Cholesterol 38 mg/dL (>40); LDL Cholesterol Calculated 76 mg/dL (<100); Potassium 4.4 mmol/L (3.3-5.1); Sodium 142 mmol/L (135-145); Total Protein 7.4 g/dL (6.5-8.0); Triglycerides 231 mg/dL (<150)
[2025-05-14 09:47] LABS: Creatinine Urine 44.99 mg/dL; Microalbum/Creatinine Ratio Ur 28.8 ug/mg cr (<30)
== END 2025-05-14 06:39 | disposition home or self-care (01) ==
LOC: HO.LAB 06:38
PROVIDERS: PCP Internal Medicine; Visit Provider Internal Medicine
DX: E78.00 Pure hypercholesterolemia, unspecified (principal); E11.9 Type 2 diabetes mellitus without complications; E55.9 Vitamin D deficiency, unspecified; R30.0 Dysuria; D64.9 Anemia, unspecified
CPT/HCPCS: 36415; 80053; 80061; 81003; 82043; 82306; 82570; 83036; 85025

== ENCOUNTER 2025-05-17 11:22 | Outpatient (AMB) | payer MEDICARE, MEDICAID, SELFPAY ==
[2025-05-17 11:24] VITALS: BP 116/70; PULSE 56; O2SAT 97; BMI 38.9
--- NOTE | 2025-05-17 11:24 | MHC.PC.OV ---
Vital Signs 05/17/25 11:24 Height 5 ft 4 in Weight 226 lb 8 oz BMI 38.9 BP 116/70 Blood Pressure Location Lt brachial Position Sitting Pulse 56 Pulse Source Pulse Oximeter Pulse Oximetry (%) 97 Oxygen Delivery Method Room Air Intake Visit Reasons: 3M Follow UP Cut Off Saw Tender Metal Required: No Accompanied by: Self / Same As Patient Allergies tramadol Adverse Reaction (Intermediate, Verified 05/17/25 11:55) Stomach Upset Medication List - Last Reconciled 05/17/25 by Anthony Lui MD acetaminophen 500 mg PO Q6H PRN aspirin 81 mg PO QAM 90 days atorvastatin 20 mg PO BEDTIME 90 days blood sugar diagnostic (FreeStyle Lite Strips) 1 strip miscellaneous DAILY blood-glucose meter (FreeStyle Lite Meter kit) As directed [CANE As directed] celecoxib 200 mg PO BID PRN cetirizine 10 mg PO BEDTIME PRN 90 days [DIABETIC SHOES As directed] ergocalciferol (vitamin D2) (Vitamin D2) 1,250 mcg PO QWEEK fenofibrate 160 mg PO DAILY 90 days fluticasone propionate 50 mcg/actuation 2 sprays intranasal DAILY PRN 30 days folic acid 1 mg PO QAM [free style glucometer As directed] furosemide 40 mg PO DAILY hydrochlorothiazide 25 mg PO QAM lancets (TRUEplus Lancets) USE TO TEST BLOOD SUGAR FOUR TIMES DAILY lidocaine 5% 2 patches topical DAILY 30 days metformin 1,000 mg PO BID metoprolol tartrate 50 mg PO BID miscellaneous medical supply 1 ea miscellaneous DAILY miscellaneous medical supply 1 ea miscellaneous DAILY omeprazole 20 mg PO QAM potassium chloride ER 10 mEq PO DAILY 90 days sertraline 50 mg PO DAILY 30 days [SHOWER CHAIR As directed] tizanidine 2 mg PO Q8H PRN valsartan 320 mg PO QAM Tobacco use date assessed: 05/17/25 Fall risk assessment: No Falls in past year Last assessed Fall Risk: 05/17/25 Dental Screening Dental Screen Date: 05/17/25 Did you have a dental visit in the last 12 months?: Yes Did you have a dental problem in the last 6 months where you did not have access to dental care?: No Was dental information given to patient?: Patient has dentist HPI 3M Follow UP HPI Details Patient comes in today for her follow up visit States that she feels okay She denies any headaches or dizziness lately Denies any chest pains, no increased SOB No nausea/vomiting, no abdominal pain No change in bowel habits noted Needs her glucometer test strips Rx refilled today She would also like to see if she can take some Magnesium tablets for her on and off leg cramps at night She had her follow up labs done a few days ago - to discuss her results [facility] Medical History Allergic rhinitis Primary osteoarthritis of knees, bilateral Internal derangement of right shoulder Morbid obesity with BMI of 40.0-44.9, adult Anxiety Insomnia Overactive bladder Varicose veins of leg with edema Obstructive sleep apnea Constipation GERD without esophagitis Vitamin D deficiency Inflammatory polyarthropathy Diabetes mellitus Benign essential hypertension Surgical History History of surgery History of cardiac catheterization History of cataract surgery Family History Father Heart disease CVD (cardiovascular disease) Mother CVD (cardiovascular disease) Diabetes Heart disease Brother Mental problem Social History Household Members: None Housing: Apartment Alcohol intake: never Patient Tobacco Use Status: Never used Tobacco e-Cigarette/Vaping Use: Never Used Second Hand Smoke Exposure: No service: No Current occupational status: disabled Current occupational exposures/hazards: No Cognitive needs: No Hearing needs: No Vision needs: Yes Questionnaire PHQ-9 Over the last 2 weeks, how often have you been bothered by any of the following problems? 1. Little interest or pleasure in doing things: not at all 2. Feeling down, depressed, or hopeless: not at all 3. Trouble falling or staying asleep, or sleeping too much: not at all 4. Feeling tired or having little energy: not at all 5. Poor appetite or overeating: not at all 6. Feeling bad about yourself - or that you are a failure or have let yourself or your family down: not at all 7. Trouble concentrating on things, such as reading the newspaper or watching television: not at all 8. Moving or speaking so slowly that other people could have noticed. Or the opposite - being so fidgety or restless that you have been moving around a lot more than usual: not at all 9. Thoughts that you would be better off or of hurting yourself in some way: not at all Total score: 0 Depression Screening Interpretation: Negative Depression Screening Done: Yes 30714 - PHQ-9 Billing: Yes Source: Developed by Drs. Kelvin Cates, Candice Bryant, Keith Nevarez and colleagues, with an educational kailyn from [employer]. Thrive Questionnaire Date Thrive assessed: 05/17/25 I am a: Parent/Caregiver What is your living situation today?: I have a steady place to live Within the past 12 months, did the food you bought not last and you didn't have the money to get more?: Never true Within the past 12 months, did you worry whether your food would run out before you got money to buy more?: Never true Do you have trouble paying for medicines?: No Do you have trouble getting transportation to medical appointments?: No Do you have trouble paying your heating and electricity bill?: No Do you have trouble taking care of your child, family member or friend?: No Do you have trouble with day-to-day activities such as bathing, preparing meals, shopping, managing finances, etc.?: Yes Are you currently unemployed and looking for a job?: No Are you interested in more education?: No Please select the resources that you would like help with: None Currently or been in a relationship where the following occur: I choose not to answer THRIVE Score: 0 AUDIT C Alcohol Use Questionnaire (AUDIT-C) 1. How often do you have a drink containing alcohol?: Never 3. How often do you have six or more drinks on one occasion?: Never Total Score: 0 Score Reviewed/Action Taken: Yes ELIESER-7 AMB Questionnaire ELIESER-7 Date ELIESER - 7 assessed: 05/17/25 Feeling nervous, anxious, or on edge: 0 = Not at all Not being able to stop or control worryin = Not at all Worrying too much about different things: 0 = Not at all Trouble relaxin = Not at all Being so restless that it is hard to sit still: 0 = Not at all Becoming easily annoyed or irritable: 0 = Not at all Feeling afraid as if something awful might happen: 0 = Not at all Total ELIESER-7 score (0-4 normal; 5-9 mild; 10-14 moderate; 15-21 severe): 0 Source: Developed by Drs. Kelvin Cates, Candice Bryant, Keith Nevarez and colleagues, with an educational kailyn from [employer]. Review of Systems Const Denies chills, Denies fatigue, Denies fever(s) and Denies headache(s) ENT Denies dysphagia, Denies dizziness, Denies otalgia, Denies headache(s), Reports neck pain (on and off), Denies odynophagia and Denies sore throat Card Denies chest pain, Denies palpitations and Denies dyspnea Resp Denies chest congestion, Denies cough and Denies dyspnea GI Denies abdominal pain, Denies constipation, Denies dysphagia, Denies heartburn, Denies diarrhea, Denies nausea, Denies odynophagia and Denies vomiting Denies difficulty voiding, Denies nocturia, Denies dysuria and Denies urinary urgency Musc Details: frequent increased pain over both lower extremities Reports back pain, Reports arthralgias (multiple joints, especially over both knees), Reports muscle cramps (on and off in the legs, often at night) and Reports neck pain (on and off) Skin/Breast Denies rash Neuro Denies dizziness and Denies headache(s) Psych Reports anxiety (increasing) and Reports depression Endo Denies fatigue and Denies palpitations Aller/Immun Reports seasonal rhinorrhea (worse at night lately) Physical exam (Primary Care) Vital Signs: Last Vital Signs Pulse 56 05/17/25 11:24 BP 116/70 05/17/25 11:24 Pulse Ox 97 05/17/25 11:24 Oxygen Delivery Method Room Air 05/17/25 11:24 BMI result Body Mass Index 38.9 Tobacco/Smoking Status: Tobacco use Status Tobacco use date assessed 05/17/25 05/17/25 11:29 Patient Tobacco Use Status Never used Tobacco 05/17/25 11:29 e-Cigarette/Vaping Use Never Used 05/17/25 11:29 PHQ-9: PHQ-9 Score PHQ-9: Total score 0 05/17/25 11:29 Depression Screening Interpretation: Negative Thrive Assessment: Date of Thrive Assessment Date Thrive assessed 05/17/25 05/17/25 11:29 Currently or been in a relationship where the following occur: I choose not to answer Const General: no acute distress and alert HENMT Ears: TM's normal bilaterally and EAC's normal Throat: Yes posterior oropharynx normal and Yes tonsils normal (no TP congestion noted) Neck Neck: Yes supple and No lymphadenopathy Thyroid: Thyroid normal Resp Auscultation: clear to auscultation bilaterally, no rales and no wheezes Cardio Rate: regular rate Rhythm: regular rhythm Heart sounds: no murmurs GI Palpation (GI): Soft to palpation and nontender Auscultation: normal bowel sounds General: Yes no CVA tenderness Back/Spine/Pelvis Back: no CVA tenderness Cervical Spine: Cervical spine tenderness Thoracic/Lumbar Spine: thoracic spinal tenderness and lumbar spinal tenderness Skin Rashes: no rashes Extrem Other: (+) prominent varicose veins over both lower extremities General: No clubbing, No cyanosis and Yes edema ((+) chronic 2+ bilateral lower extremity edema with varicosities) Right lower extremity: knee Details: tenderness and swelling (mild) Left lower extremity: knee Details: tenderness Location: of the medial joint line and swelling (mild) Results Reviewed Results Reviewed: Laboratory Tests 05/14/25 05/14/25 07:00 07:04 WBC 8.3 Hgb 12.4 Hct 39.2 Plt Count 254 Sodium 142 Potassium 4.4 Creatinine 0.73 Estimated GFR > 60 Fasting Glucose 135 H Hemoglobin A1c % 6.8 H Calcium 9.6 D AST 21 ALT 20 Triglycerides 231 H Cholesterol 160 LDL Cholesterol, Calc 76 HDL Cholesterol 38 L Ur Specific [place] 1.015 Urine Protein Negative Urine Glucose (UA) Negative Urine Blood Negative Urine Nitrite Negative Ur Leukocyte Esterase Negative Microalb/Creat Ratio 28.8 Coding Level of Care Code Est Pt Level 4 (20362) Complex EM visit Add On G2211 Diagnoses Mixed hyperlipidemia E78.2 Type 2 diabetes mellitus without complication, without long-term current use of insulin E11.9 Diabetes mellitus type: type 2 Diabetes mellitus pickle pumper insulin use: without mcc use Diabetes mellitus complication status: without complication Benign essential hypertension I10 Primary osteoarthritis of knees, bilateral M17.0 Rotator cuff arthropathy of left shoulder M12.812 Inflammatory polyarthropathy M06.4 Varicose veins of both legs with edema I83.893 Laterality: bilateral Nocturnal leg cramps G47.62 Vitamin D deficiency E55.9 GERD without esophagitis K21.9 Constipation, unspecified constipation type K59.00 Constipation type: unspecified constipation type Allergic rhinitis, unspecified seasonality, unspecified trigger J30.9 Allergic rhinitis trigger: unspecified Allergic rhinitis seasonality: unspecified Obstructive sleep apnea G47.33 Overactive bladder N32.81 Insomnia, unspecified type G47.00 Insomnia type: unspecified Anxiety F41.9 Morbid obesity with BMI of 40.0-44.9, adult E66.01; Z68.41 Additional Codes PHQ-9 - 50351 - PHQ-9 Billing: Yes ([id number]) Assessment & Plan Assessment & Plan (1) Mixed hyperlipidemia: Code(s): E78.2 - Mixed hyperlipidemia Category: Medical Plan: Results of her labs done a few days ago reviewed and discussed with patient Reinforced low cholesterol diet Continue Atorvastatin 20 mg QD and Fenofibrate 160 mg QD Will recheck her labs and fasting lipids in 4 months for follow-up (2) Diabetes mellitus: Code(s): E11.9 - Type 2 diabetes mellitus without complications Category: Medical Qualifiers: Diabetes mellitus type: type 2 Diabetes mellitus mcc insulin use: without pickle pumper use Diabetes mellitus complication status: without complication Qualified Code(s): E11.9 - Type 2 diabetes mellitus without complications Plan: Her HgbA1c is at 6.8% on her labs done a few days ago (was previously at 6.7% a few months ago) - goal is < 7.0% Reinforced diabetic diet Continue Metformin 1000 mg BID and Januvia 100 mg QD (3) Benign essential hypertension: Code(s): I10 - Essential (primary) hypertension Category: Medical Plan: Reinforced low-sodium diet - goal is systolic BP of at least 130 mm or less Her blood pressure appears much better controlled currently with her recent weight loss Continue Valsartan 320 mg QD, Metoprolol Tartrate 50 mg BID and HCTZ 25 mg QD; she is also on Furosemide 40 mg once a day in AM but this is more for her lower extremity edema (4) Primary osteoarthritis of knees, bilateral: Code(s): M17.0 - Bilateral primary osteoarthritis of knee Category: Medical Plan: X-rays of both knees done a few months ago revealed (+) moderate to severe OA changes in both knees, with slight progression from previous She has been referred to orthopedics and has received cortisone injections into her knees but states that they only provide her with a few months of relief at most She was referred to Pain Management at her last visit to explore alternative pain management options and she is now following up with pain management regularly She was seen most recently in March 2025 and advised that they will reach out to her again in a few months to schedule another round of knee injections - follow up with orthopedics as scheduled although she remains very hesitant about undergoing knee replacement surgery She also was not able to tolerate Tramadol when it was prescribed to help with her pain a few years ago (5) Rotator cuff arthropathy of left shoulder: Code(s): M12.812 - Other specific arthropathies, not elsewhere classified, left shoulder Category: Medical Plan: MRI of the left shoulder done a few months ago revealed (+) complete, full-thickness tear of the supraspinatus tendon She has been advised by orthopedics that she may require surgery, especially if her shoulder symptoms progress/get worse Follow up with orthopedics as scheduled (6) Inflammatory polyarthropathy: Code(s): M06.4 - Inflammatory polyarthropathy Category: Medical Plan: Patient used to take Methotrexate and follow-up with Rheumatology but she has not seen them for a few years now - states that her joint pains have been well-controlled lately, other than her left shoulder and her knees Continue Acetaminophen 500 mg every 6 hours as needed Will consider referring to [facility] Rhe[facility] for further evaluation and management again if her symptoms get worse (7) Varicose veins of leg with edema: Code(s): I83.899 - Varicose veins of unspecified lower extremity with other complications Category: Medical Qualifiers: Laterality: bilateral Qualified Code(s): I83.893 - Varicose veins of bilateral lower extremities with other complications Plan: S/P EVLT with Dr. Jj last year (2022) Follow up with vascular surgery as scheduled (8) Nocturnal leg cramps: Code(s): G47.62 - Sleep related leg cramps Category: Medical Plan: Per request, will start her on Magnesium oxide 400 mg Q HS (9) Vitamin D deficiency: Code(s): E55.9 - Vitamin D deficiency, unspecified Category: Medical Plan: Continue Vitamin D2 76133 units once a week (10) GERD without esophagitis: Code(s): K21.9 - Gastro-esophageal reflux disease without esophagitis Category: Medical Plan: Dietary restrictions reinforced Continue Omeprazole 20 mg QD (11) Constipation: Code(s): K59.00 - Constipation, unspecified Category: Medical Qualifiers: Constipation type: unspecified constipation type Qualified Code(s): K59.00 - Constipation, unspecified Plan: She is again encouraged on increased oral fluids and dietary fiber Continue MiraLax 17 gm QD and Senna 8.6 mg 1 tablet once a day as needed (12) Allergic rhinitis: Code(s): J30.9 - Allergic rhinitis, unspecified Category: Medical Qualifiers: Allergic rhinitis trigger: unspecified Allergic rhinitis seasonality: unspecified Qualified Code(s): J30.9 - Allergic rhinitis, unspecified Plan: Continue Cetirizine 10 mg Q PM and Fluticasone 50 mcg nasal spray QD PRN (13) Obstructive sleep apnea: Code(s): G47.33 - Obstructive sleep apnea (adult) (pediatric) Category: Medical Plan: Patient has an AutoPAP / CPAP device but admits that she has not used it in a few years now as it is not comfortable to keep on when she is sleeping at night She has been advised to try sleeping on her side to help reduce her snoring Follow up with Sleep Medicine as scheduled (14) Overactive bladder: Code(s): N32.81 - Overactive bladder Category: Medical Plan: Follow up with Urology as scheduled (15) Insomnia: Code(s): G47.00 - Insomnia, unspecified Category: Medical Qualifiers: Insomnia type: unspecified Qualified Code(s): G47.00 - Insomnia, unspecified Plan: Sleep hygiene reinforced She was previously started back on Zolpidem 5 mg Q HS PRN as she reports feeling very dizzy whenever she took Trazodone 100 mg Q HS in the past (16) Anxiety: Code(s): F41.9 - Anxiety disorder, unspecified Category: Medical Plan: Continue Lorazepam 1 mg BID as needed and Sertraline 50 mg QD (17) Morbid obesity with BMI of 40.0-44.9, adult: Code(s): E66.01 - Morbid (severe) obesity due to excess calories; Z68.41 - Body mass index [BMI] 40.0-44.9, adult Category: Medical Plan: Reinforced diet; exercise and weight loss are unrealistic given patient multiple physical issues and comorbidities although she has managed to lose at least 16 pounds since her last visit with walking and watching her diet better Plan Follow up in 4 months Orders: Orders Microalbumin, Random (w Creat) 4 Months E11.9 - Type 2 diabetes mellitus without complications Hemoglobin A1c 4 Months E11.9 - Type 2 diabetes mellitus without complications TSH reflex Free T4 4 Months E78.00 - Pure hypercholesterolemia, unspecified UA CC w/rflx Micro + Cult 4 Months R30.0 - Dysuria Vitamin B12 and Folate 4 Months E53.8 - Deficiency of other specified B group vitamins Complete Blood Count Auto Diff 4 Months D64.9 - Anemia, unspecified Comprehensive Kimberly. Panel Fast 4 Months E78.00 - Pure hypercholesterolemia, unspecified Lipid Panel 4 Months E78.00 - Pure hypercholesterolemia, unspecified Vitamin D 25-OH Total 4 Months E55.9 - Vitamin D deficiency, unspecified Medications: New magnesium oxide 400 mg PO BEDTIME 90 caps 3RF nocturnal leg cramps 90 days Refilled lancets (TRUEplus Lancets) USE TO TEST BLOOD SUGAR FOUR TIMES DAILY 100 ea 11RF
== END 2025-05-17 12:05 | disposition home or self-care (01) ==
LOC: HO.HMCH 11:23
PROVIDERS: PCP Internal Medicine; Visit Provider Internal Medicine
DX: E11.9 Type 2 diabetes mellitus without complications (principal); M06.4 Inflammatory polyarthropathy; Z68.41 Body mass index [BMI] 40.0-44.9, adult; E66.01 Morbid (severe) obesity due to excess calories; E78.2 Mixed hyperlipidemia; I10 Essential (primary) hypertension; M17.0 Bilateral primary osteoarthritis of knee; M12.812 Other specific arthropathies, not elsewhere classified, left shoulder; I83.893 Varicose veins of bilateral lower extremities with other complications; G47.62 Sleep related leg cramps; E55.9 Vitamin D deficiency, unspecified; K21.9 Gastro-esophageal reflux disease without esophagitis

== ENCOUNTER → 2025-05-17 11:22 | Outpatient (BNVA) | payer MEDICARE, MEDICAID, SELFPAY | PROVIDERS: PCP Internal Medicine; Visit Provider Internal Medicine | DX: E78.2 Mixed hyperlipidemia (principal); E11.9 Type 2 diabetes mellitus without complications; I10 Essential (primary) hypertension; M17.0 Bilateral primary osteoarthritis of knee; M06.4 Inflammatory polyarthropathy; I83.893 Varicose veins of bilateral lower extremities with other complications; G47.62 Sleep related leg cramps; E55.9 Vitamin D deficiency, unspecified; K21.9 Gastro-esophageal reflux disease without esophagitis; K59.00 Constipation, unspecified; J30.9 Allergic rhinitis, unspecified; G47.33 Obstructive sleep apnea (adult) (pediatric); N32.81 Overactive bladder; G47.00 Insomnia, unspecified; F41.9 Anxiety disorder, unspecified; E66.01 Morbid (severe) obesity due to excess calories; Z68.41 Body mass index [BMI] 40.0-44.9, adult; Z71.3 Dietary counseling and surveillance | CPT/HCPCS: 96127; 99212 ==

== ENCOUNTER 2025-09-17 06:36 | Outpatient (REF) | payer MEDICARE, MEDICAID, SELFPAY ==
--- OUTSIDE RECORDS SUMMARY | 2025-09-17 06:39 | XMS_ITS | Clinical Summary ---
Author Organization [facility] Address [address] [facility] [address] [place] [id number] Phone Care Team Providers Care Forestry Consultant Name Role Phone Anthony Lui MD Primary Care Provider [phone] Allergies No known active allergies Medications aspirin 81 MG EC tablet Take 81 mg by mouth every morning. 2 Active atorvastatin (LIPITOR) 20 MG tablet Take 20 mg by mouth daily. 2 Active fenofibrate (TRICOR) 145 MG tablet Take 145 mg by mouth nightly at bedtime. 2 Active VITAMIN D2 1,250 mcg (50,000 unit) capsule Take 1 capsule by mouth daily. 2 Active folic acid (FOLVITE) 1 MG tablet Take 1,000 mcg by mouth every morning. 2 Active furosemide (LASIX) 40 MG tablet Take 40 mg by mouth daily. 2 Active hydroCHLOROthia zide (HYDRODIURIL) 25 MG tablet Take 25 mg by mouth daily. 2 Active JANUVIA 100 mg tablet Take 100 mg by mouth daily. 2 Active metFORMIN (GLUCOPHAGE) 1000 MG tablet Take 1,000 mg by mouth daily. 2 Active metoprolol tartrate (LOPRESSOR) 50 MG tablet Take 50 mg by mouth 2 (two) times a day. 2 Active omeprazole (PRILOSEC) 20 MG capsule Take 20 mg by mouth daily. 2 Active potassium chloride (KLOR-CON) 10 MEQ ER tablet Take 10 mEq by mouth every morning. 2 Active SENNA 8.6 mg tablet TAKE 1 TABLET BY MOUTH AT BEDTIME NEEDED CONSTIPATION 2 Active valsartan (DIOVAN) 320 MG tablet Take 320 mg by mouth daily. 2 Active fenofibrate (LOFIBRA) 160 MG tablet Take 160 mg by mouth nightly at bedtime. 3 Active fluticasone propionate (FLONASE) 50 mcg/actuation nasal spray USE 2 SPRAYS IN EACH NOSTRIL ONCE DAILY NEEDED FOR ALLERGIES 3 Active sertraline (ZOLOFT) 50 MG tablet Take 50 mg by mouth every morning. 3 Active zolpidem (AMBIEN) 5 MG tablet Take 5 mg by mouth nightly at bedtime as needed. 3 Active neomycin-polymy shelli B-dexAMETHasone (MAXITROL) 3.5 mg/g-10,000 unit/g-0.1 % Oint AFTER HOT PACK AND MASSAGE APPLY 1/4 INCH STRIP TO LEFT LOWER EYELID THREE TO FOUR TIMES A DAY 4 Active brimonidine (ALPHAGAN) 0.2 % ophthalmic solution INSTILL ONE DROP IN BOTH EYES TWICE A DAY, TWELVE HOURS APART. 4 Active timolol (TIMOPTIC) 0.5 % ophthalmic solution INSTILL 1 DROP IN BOTH EYES EVERY MORNING 4 Active celecoxib (CELEBREX) 200 MG capsule take 1 capsule by mouth twice daily as needed for pain 4 Active FREESTYLE LITE Strp strips USE DIRECTED TO TEST BLOOD SUGAR EVERY DAY 4 Active cetirizine (ZYRTEC) 10 MG tablet TAKE 1 TABLET BY MOUTH AT BEDTIME NEEDED FOR ALLERGIES 4 Active TRUEPLUS LANCETS 33 gauge Misc USE DIRECTED TO TEST BLOOD SUGAR FOUR TIMES DAILY 4 Active lidocaine (LIDODERM) 5 % 4 Active magnesium oxide (MAG-OX) 400 mg (241.3 mg elemental) tablet daily. 5 Active Active Problems Problem Noted Date Diagnosed Date Benign essential hypertension 09/28/2022 Assessment & Plan (08/23/2025 11:16 AM EDT): Blood pressure well-controlled on current medication Assessment & Plan (03/07/2025 11:23 AM EDT): Well-controlled at this time Assessment & Plan (09/12/2024 12:14 PM EDT): Well-controlled Assessment & Plan (02/15/2024 12:25 PM EDT): Well-controlled to the guidelines. Assessment & Plan (06/14/2023 12:28 PM EDT): Assessment & Plan (02/16/2023 12:49 PM EDT): Well-controlled Assessment & Plan (09/28/2022 9:14 AM EST): Blood pressure is mildly elevated today goal should be less than 130 systolic Varicose veins of bilateral lower extremities with other complications 09/28/2022 Assessment & Plan (08/23/2025 11:17 AM EDT): He has bulging varicose veins in both legs, she just recently had a reflux study as outlined above. She has previously had ablations of both of her GSV's and SSV's. Overall her legs are not really bothering her no change to management at this time Assessment & Plan (03/07/2025 11:24 AM EDT): I have updated her venous reflux study she has bulging varicosities on the right in the calf location but they do not bother her Assessment & Plan (09/12/2024 12:14 PM EDT): Well treated with bilateral vein ablation she does not have any surface veins with refluxing valves left to repair Assessment & Plan (02/15/2024 12:25 PM EDT): Well treated from a percutaneous standpoint she is definitely feeling way better with a lot of weight loss. I will follow-up with her again in 6 months time Assessment & Plan (06/14/2023 12:28 PM EDT): Well treated with bilateral vein ablations she probably has deep vein valve regurgitation on that right side which will be greatly helped with weight loss and compression Assessment & Plan (02/16/2023 12:49 PM EDT): Currently asymptomatic after bilateral vein ablation Assessment & Plan (09/28/2022 9:13 AM EST): As mentioned we just ablated her right GSV although her short saphenous vein had 7 seconds of reflux I would just check everything with a post intervention ultrasound and follow-up with her thereafter. Diabetes 09/28/2022 Assessment & Plan (03/07/2025 11:23 AM EDT): A1c should ideally be less than 7 Assessment & Plan (09/12/2024 12:14 PM EDT): A1c should be less than 7 and LDL less than 70 mg/dL given the guidelines. Assessment & Plan (02/15/2024 12:25 PM EDT): A1c should be less than 7 and LDL less than 70 mg/dB guidelines. Assessment & Plan (06/14/2023 12:28 PM EDT): A1c should be less than 7 and LDL less than 70 mg/dL Assessment & Plan (02/16/2023 12:49 PM EDT): She says her A1c is right at 7 Assessment & Plan (09/28/2022 9:13 AM EST): A1c should be less than 7 and LDL less than 70 mg/dL Pure hypercholesterolemia 09/28/2022 Assessment & Plan (08/23/2025 11:18 AM EDT): It appears there were no labs uploaded to our system since sometime in 2022. She just had labs done for PCP at [facility]. I am requesting that these be sent over so we can review them. Given her history of diabetes her LDL goal should be 70 or less. Continue atorvastatin 20 mg daily Continue fenofibrate Assessment & Plan (03/07/2025 11:23 AM EDT): I looked at some labs that were done within the last 6 to 8 months her LDL is quite low and well-controlled Assessment & Plan (02/16/2023 12:49 PM EDT): As mentioned she stopped her statin agent which I strongly counseled her against. I will see her in 4 to 6 months time. LDL should be less than 70 given the diabetes Encounters Date Type Department Care Team Description 08/23/2025 11:00 AM EDT Office Visit [facility] [address], [address] [place], [place] [id number] Sita Daugherty, DIONY Benign essential hypertension (Primary Dx); Varicose veins of bilateral lower extremities with other complications; Pure hypercholesterolemia from Last 3 Months Social History Tobacco Use Types Packs/Day Years Used Date Smoking Tobacco: Never Smokeless Tobacco: Never Tobacco Cessation:Counseling Given: Not Answered Education Answer Date Recorded Are you interested in more education? Not on katerina e 03/13/2023 Are you concerned about learning? Not on file 03/13/2023 No 03/13/2023 No 03/13/2023 Digital Access Answer Date Recorded No 04/11/2023 No 04/11/2023 Reliable internet access at home? Not on file 04/11/2023 Device with a working camera? Not on file Comments Unknown Sex and Gender Information Value Date Recorded Sex Assigned at Not on file Legal Sex Female 4:11 PM EST Gender Identity Not on file Sexual Orientation Not on file Last Filed Vital Signs Vital Sign Reading Time Taken Comments Blood Pressure 134/70 08/23/2025 10:55 AM EDT Pulse 65 08/23/2025 10:55 AM EDT Temperature - - Respiratory Rate - - Oxygen Saturation 98% 08/23/2025 10:55 AM EDT Inhaled Oxygen Concentration - - Weight 105.2 kg (232 lb) 08/23/2025 10:55 AM EDT Height 162.6 cm (5' 4.02 ) 08/23/2025 10:55 AM E DT Body Mass Index 39.8 08/23/2025 10:55 AM EDT Plan of Treatment Upcoming Encounters Date Type Department Care Team (Late st Contact Info) Description 02/25/2026 11:45 AM EDT Office Visit [facility] [address], [address] [place] [address] Tino Jj, [address] [facility] [address] [place] [address] [email or web address] Health Maintenance Due Date Last Done Comments CREATININE LEVEL 1957 HEMOGLOBIN A1C 1957 POTASSIUM LEVEL 1957 DEPRESSION SCREENING 1969 HEPATITIS C SCREENING 1975 PNEUMOCOCCAL VACCINES (50+ years) (1 of 2 - PCV) 1976 MAMMOGRAM 1997 COLOGUARD 2002 COLONOSCOPY 2002 COLORECTAL CANCER SCREENING 2002 FIT TEST 2002 FOBT 2002 SIGMOIDOSCOPY 2002 VIRTUAL COLONOSCOPY 2002 ZOSTER VACCINES (1 of 2) 2007 OSTEOPOROSIS SCREENING INITIAL (ONE-TIME) 2022 DIABETIC EYE EXAM 09/28/2022 INFLUENZA VACCINE (#1) 2025 , 09/04/2022, 07/14/2021, Additional history exists COVID-19 VACCINE ( - 2024- season) 2025 03/31/2022, 09/29/2021 BLOOD PRESSURE 02/21/2026 08/23/2025 Adult Td,Tdap Booster 08/18/2026 08/18/2016 RSV VACCINE (1 - 1-dose 75+ series) 2032 SMOKING STATUS SCREENING (Once After 26 Yrs) Completed 08/23/2025 HEPATITIS A VACCINES Aged Out No long er eligible based on patient's age to complete this topic HIB VACCINES Aged Out No longer eligi ble based on patient's age to complete this topic MENINGOCOCCAL VACCINES (ACWY) Aged Out No longer eligible based on patient's age to complete this topic MENINGOCOCCAL VACCINES (B) Aged Out N o longer eligible based on patient's age to complete this topic Medical Devices Not on file [place] & [place] MEDICARE PART A & [place] & B MEDICARE PART A & [place] & [place] & B [place] [id number] [facility] MEDICARE PART A & B Care Teams Forestry Consultant Relationship Specialty Start Date End Date Anthony Lui MD [address] [place] [address] [place] [id number] PCP - General Internal Medicine 09/23/21 Additional Source Comments The information contained in this document represents components of the legal health record. It is not the complete legal health record.[facility]
[2025-09-17 06:51] LABS: MANUAL DIFF FLAG NO
[2025-09-17 07:13] LABS: Hematocrit 42.3 % (37.0-47.0); Hemoglobin 13.6 g/dl (12.0-16.0); Imm Gran Abs Auto 0.05 X10*3/uL (0.00-0.03); Imm Gran Pct Auto 0.6 % (0.0-0.4); Lymphocytes Absolute Auto 2.3 X10*3/uL (1.2-4.9); Mean Corpuscular HGB Conc 32.2 g/dl (31.0-35.0); Mean Corpuscular Hemoglobin 27.5 pg (27.0-33.0); Mean Corpuscular Volume 85.6 fL (80.0-98.0); NRBC Abs Auto 0.000 X10*3/uL (0.0-0.012); NRBC Pct Auto 0.0 /100WBC (0.0-0.2); Platelet Count 263 X10*3/uL (160-400); Red Blood Count 4.94 X10*6/uL (4.20-5.50); White Blood Count 8.3 X10*3/uL (4.8-10.8)
[2025-09-17 07:44] LABS: Appearance Urine Clear; Glucose Urine UA Negative (Negative); PH 6.0 (5.0-9.0); Specific Gravity - Urine 1.015 (1.005-1.025); UMIC TRIGGER UACC YES
[2025-09-17 07:48] LABS: UACC Culture Trigger YES
[2025-09-17 07:53] LABS: Alanine Aminotransferase 26 U/L (0-31); Albumin Level 4.0 g/dL (3.5-5.0); Alkaline Phosphatase 107 U/L (39-117); Anion Gap 12 (12-20); Aspartate Amino Transferase 33 U/L (5-31); Blood Urea Nitrogen 26 mg/dL (9-16); Calcium 10.1 mg/dL (8.4-10.2); Carbon Dioxide 29 mmol/L (22-29); Chloride 103 mmol/L (96-108); Cholesterol 198 mg/dL (<200); Estimated Glomerular Filt Rate > 60; HDL Cholesterol 43 mg/dL (>40); Potassium 3.9 mmol/L (3.3-5.1); Sodium 140 mmol/L (135-145); Total Protein 7.9 g/dL (6.5-8.0); Triglycerides 420 mg/dL (<150)
[2025-09-17 08:08] LABS: Folate 16.1 ng/mL (> or = 4.0); Vitamin B12 435 pg/mL (200-900)
[2025-09-17 08:16] LABS: Microalbum/Creatinine Ratio Ur 80.2 ug/mg cr (<30)
== END 2025-09-17 06:37 | disposition home or self-care (01) ==
LOC: HO.LAB 06:36
PROVIDERS: Internal Medicine; PCP Physician Assistant; Visit Provider Physician Assistant
DX: E11.9 Type 2 diabetes mellitus without complications (principal); E78.00 Pure hypercholesterolemia, unspecified; E53.8 Deficiency of other specified B group vitamins; D64.9 Anemia, unspecified; E55.9 Vitamin D deficiency, unspecified; R30.0 Dysuria
CPT/HCPCS: 36415; 80053; 80061; 81001; 82043; 82306; 82570; 82607; 82746; 83036; 84443; 85025; 87086

== ENCOUNTER 2025-09-20 10:46 | Outpatient (AMB) | payer MEDICARE, MEDICAID, SELFPAY ==
--- NOTE | 2025-09-20 11:11 | MHC.PC.OV ---
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: No Accompanied by: Self / Same As Patient Allergies tramadol Adverse Reaction (Intermediate, Verified 09/20/25 11:47) Stomach Upset Medication List - Last Reconciled 09/20/25 by Anthony Lui MD acetaminophen 500 mg PO Q6H PRN aspirin 81 mg PO QAM 90 days atorvastatin 20 mg PO BEDTIME 90 days blood sugar diagnostic (FreeStyle Lite Strips) 1 strip miscellaneous DAILY blood-glucose meter (FreeStyle Lite Meter kit) As directed [CANE As directed] celecoxib 200 mg PO BID PRN cetirizine 10 mg PO BEDTIME PRN 90 days [CPAP mask As directed] [DIABETIC SHOES As directed] ergocalciferol (vitamin D2) (Vitamin D2) 1,250 mcg PO QWEEK fenofibrate 160 mg PO DAILY 90 days fluticasone propionate 50 mcg/actuation 2 sprays intranasal DAILY PRN 30 days folic acid 1 mg PO QAM [free style glucometer As directed] furosemide 40 mg PO DAILY hydrochlorothiazide 25 mg PO QAM lancets (TRUEplus Lancets) USE TO TEST BLOOD SUGAR FOUR TIMES DAILY lidocaine 5% 2 patches topical DAILY 30 days magnesium oxide 400 mg PO BEDTIME 90 days metformin 1,000 mg PO BID metoprolol tartrate 50 mg PO BID miscellaneous medical supply 1 ea miscellaneous DAILY miscellaneous medical supply 1 ea miscellaneous DAILY omeprazole 20 mg PO QAM potassium chloride ER 10 mEq PO DAILY 90 days sertraline 50 mg PO DAILY 30 days [SHOWER CHAIR As directed] tizanidine 2 mg PO Q8H PRN valsartan 320 mg PO QAM Tobacco use date assessed: 09/20/25 Fall risk assessment: No Falls in past year Last assessed Fall Risk: 09/20/25 Dental Screening Dental Screen Date: 09/20/25 Did you have a dental visit in the last 12 months?: Yes Did you have a dental problem in the last 6 months where you did not have access to dental care?: No Was dental information given to patient?: Patient has dentist HPI 4 mnth f/u HPI Details Patient comes in today for her follow up visit States that she feels okay She denies any headaches or dizziness Denies any chest pains, no increased SOB No nausea/vomiting, no abdominal pain No change in bowel habits noted She had her follow up labs done a few days ago - to discuss her results [facility] Medical History Allergic rhinitis Primary osteoarthritis of knees, bilateral Internal derangement of right shoulder Morbid obesity with BMI of 40.0-44.9, adult Anxiety Insomnia Overactive bladder Varicose veins of leg with edema Obstructive sleep apnea Constipation GERD without esophagitis Vitamin D deficiency Inflammatory polyarthropathy Diabetes mellitus Benign essential hypertension Surgical History History of surgery History of cardiac catheterization History of cataract surgery Family History Father Heart disease CVD (cardiovascular disease) Mother CVD (cardiovascular disease) Diabetes Heart disease Brother Mental problem Social History Household Members: None Housing: Apartment Alcohol intake: never Patient Tobacco Use Status: Never used Tobacco e-Cigarette/Vaping Use: Never Used Second Hand Smoke Exposure: No service: No Current occupational status: disabled Current occupational exposures/hazards: No Cognitive needs: No Hearing needs: No Vision needs: Yes Questionnaire Thrive Questionnaire Date Thrive assessed: 05/17/25 I am a: Parent/Caregiver What is your living situation today?: I have a steady place to live Within the past 12 months, did the food you bought not last and you didn't have the money to get more?: Never true Within the past 12 months, did you worry whether your food would run out before you got money to buy more?: Never true Do you have trouble paying for medicines?: No Do you have trouble getting transportation to medical appointments?: No Do you have trouble paying your heating and electricity bill?: No Do you have trouble taking care of your child, family member or friend?: No Do you have trouble with day-to-day activities such as bathing, preparing meals, shopping, managing finances, etc.?: Yes Are you currently unemployed and looking for a job?: No Are you interested in more education?: No Please select the resources that you would like help with: None Currently or been in a relationship where the following occur: I choose not to answer THRIVE Score: 0 ELIESER-7 AMB Questionnaire ELIESER-7 Date ELIESER - 7 assessed: 05/17/25 Source: Developed by Drs. Kelvin Cates, Candice Bryant, Keith Nevarez and colleagues, with an educational kailyn from [employer]. Review of Systems Const Denies chills, Denies fatigue, Denies fever(s) and Denies headache(s) ENT Denies dysphagia, Denies dizziness, Denies otalgia, Denies headache(s), Reports neck pain (on and off), Denies odynophagia and Denies sore throat Card Denies chest pain, Denies palpitations and Denies dyspnea Resp Denies chest congestion, Denies cough and Denies dyspnea GI Denies abdominal pain, Denies constipation, Denies dysphagia, Denies heartburn, Denies diarrhea, Denies nausea, Denies odynophagia and Denies vomiting Denies difficulty voiding, Denies nocturia, Denies dysuria and Denies urinary urgency Musc Reports back pain, Reports arthralgias (multiple joints, especially over both knees), Reports muscle cramps (on and off in the legs, often at night) and Reports neck pain (on and off) Skin/Breast Denies rash Neuro Denies dizziness and Denies headache(s) Psych Reports anxiety and Reports depression Endo Denies fatigue and Denies palpitations Aller/Immun Reports seasonal rhinorrhea (worse at night lately) Physical exam (Primary Care) Vital Signs: Last Vital Signs Temp 97.3 F 09/20/25 11:12 Pulse 63 09/20/25 11:12 Resp 18 09/20/25 11:12 BP 124/60 09/20/25 11:12 Pulse Ox 97 09/20/25 11:12 Oxygen Delivery Method Room Air 09/20/25 11:12 BMI result Body Mass Index 39.5 Tobacco/Smoking Status: Tobacco use Status Tobacco use date assessed 09/20/25 09/20/25 11:18 Patient Tobacco Use Status Never used Tobacco 09/20/25 11:18 e-Cigarette/Vaping Use Never Used 09/20/25 11:18 Thrive Assessment: Date of Thrive Assessment Date Thrive assessed 05/17/25 09/20/25 11:18 Currently or been in a relationship where the following occur: I choose not to answer Const General: no acute distress and alert HENMT Ears: TM's normal bilaterally and EAC's normal Throat: Yes posterior oropharynx normal and Yes tonsils normal (no TP congestion noted) Neck Neck: Yes supple and No lymphadenopathy Thyroid: Thyroid normal Resp Auscultation: clear to auscultation bilaterally, no rales and no wheezes Cardio Rate: regular rate Rhythm: regular rhythm Heart sounds: no murmurs GI Palpation (GI): Soft to palpation and nontender Auscultation: normal bowel sounds General: Yes no CVA tenderness Back/Spine/Pelvis Back: no CVA tenderness Cervical Spine: Cervical spine tenderness Thoracic/Lumbar Spine: thoracic spinal tenderness and lumbar spinal tenderness Skin Rashes: no rashes Extrem Other: (+) prominent varicose veins over both lower extremities General: No clubbing, No cyanosis and Yes edema ((+) chronic 1+ bilateral lower extremity edema with varicosities) Right lower extremity: knee Details: tenderness and swelling (mild) Left lower extremity: knee Details: tenderness Location: of the medial joint line and swelling (mild) Results Reviewed Results Reviewed: Laboratory Tests 09/17/25 09/17/25 06:44 06:50 WBC 8.3 Hgb 13.6 Hct 42.3 Plt Count 263 Sodium 140 Potassium 3.9 Creatinine 0.68 Estimated GFR > 60 Fasting Glucose 138 H Hemoglobin A1c % 7.1 H Calcium 10.1 AST 33 H ALT 26 Triglycerides 420 H Cholesterol 198 LDL Cholesterol, Calc TNP HDL Cholesterol 43 Vitamin B12 435 25-OH Vitamin D Total 31.5 TSH 3.13 Ur Specific [place] 1.015 Urine Protein Negative Urine Glucose (UA) Negative Urine Blood Negative Urine Nitrite Negative Ur Leukocyte Esterase Small (1+) H Microalb/Creat Ratio 80.2 H Coding Level of Care Code Est Pt Level 4 (70248) Diagnoses Mixed hyperlipidemia E78.2 Type 2 diabetes mellitus without complication, without long-term current use of insulin E11.9 Diabetes mellitus complication status: without complication 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 insulin use: without termite control representative use Diabetes mellitus type: type 2 Benign essential hypertension I10 Primary osteoarthritis of knees, bilateral M17.0 Rotator cuff arthropathy of left shoulder M12.812 Inflammatory polyarthropathy M06.4 Varicose veins of both legs with edema I83.893 Laterality: bilateral Nocturnal leg cramps G47.62 Vitamin D deficiency E55.9 GERD without esophagitis K21.9 Constipation, unspecified constipation type K59.00 Constipation type: unspecified constipation type Allergic rhinitis, unspecified seasonality, unspecified trigger J30.9 Allergic rhinitis seasonality: unspecified Allergic rhinitis trigger: unspecified Obstructive sleep apnea G47.33 Overactive bladder N32.81 Insomnia, unspecified type G47.00 Insomnia type: unspecified Anxiety F41.9 Morbid obesity with BMI of 40.0-44.9, adult E66.01; Z68.41 Assessment & Plan Assessment & Plan (1) Mixed hyperlipidemia: Code(s): E78.2 - Mixed hyperlipidemia Category: Medical Plan: Results of her labs done a few days ago reviewed and discussed with patient Reinforced low cholesterol diet Continue Atorvastatin 20 mg QD and Fenofibrate 160 mg QD Will recheck her labs and fasting lipids in 4 months for follow-up (2) Diabetes mellitus: Code(s): E11.9 - Type 2 diabetes mellitus without complications Category: Medical Qualifiers: Diabetes mellitus complication status: without complication Diabetes mellitus detention insulin use: without detention use Diabetes mellitus type: type 2 Qualified Code(s): E11.9 - Type 2 diabetes mellitus without complications Plan: Her HgbA1c was at 7.1% on her labs done a few days ago (was previously at 6.8% a few months ago) - goal is < 7.0% Reinforced diabetic diet Continue Metformin 1000 mg BID and Januvia 100 mg QD for now Will recheck her FBS and HgbA1c in 4 months for follow up and if her HgbA1c and glycemic control continues to rise, we will need to start her on some additional medications to help control her diabetes better (3) Benign essential hypertension: Code(s): I10 - Essential (primary) hypertension Category: Medical Plan: Reinforced low-sodium diet - goal is systolic BP of at least 130 mm or less Continue Valsartan 320 mg QD, Metoprolol Tartrate 50 mg BID and HCTZ 25 mg QD; she is also on Furosemide 40 mg once a day in AM but this is more for her lower extremity edema (4) Primary osteoarthritis of knees, bilateral: Code(s): M17.0 - Bilateral primary osteoarthritis of knee Category: Medical Plan: X-rays of both knees done last year (2023) revealed (+) moderate to severe OA changes in both knees, with slight progression from previous She has been referred to orthopedics and has received cortisone injections into her knees but states that they only provide her with a few months of relief at most She was referred to Pain Management to explore alternative pain management options and she is now following up with pain management regularly She was seen most recently in March 2025 and advised that they will reach out to her again in a few months to schedule another round of knee injections - follow up with orthopedics as scheduled and she remains very hesitant about undergoing knee replacement surgery She also was not able to tolerate Tramadol when it was prescribed to help with her pain a few years ago (5) Rotator cuff arthropathy of left shoulder: Code(s): M12.812 - Other specific arthropathies, not elsewhere classified, left shoulder Category: Medical Plan: MRI of the left shoulder done back in 2020 revealed (+) complete, full-thickness tear of the supraspinatus tendon She has been advised by orthopedics that she may require surgery if her shoulder symptoms progress/get worse but she has so far not needed surgery yet Follow up with orthopedics as scheduled (6) Inflammatory polyarthropathy: Code(s): M06.4 - Inflammatory polyarthropathy Category: Medical Plan: Patient used to take Methotrexate and follow-up with Rheumatology but she has not seen them for a few years now - states that her joint pains have been well-controlled lately, other than her left shoulder and her knees Continue Acetaminophen 500 mg every 6 hours as needed Will consider referring to [facility] for further evaluation and management again if her symptoms get worse (7) Varicose veins of leg with edema: Code(s): I83.899 - Varicose veins of unspecified lower extremity with other complications Category: Medical Qualifiers: Laterality: bilateral Qualified Code(s): I83.893 - Varicose veins of bilateral lower extremities with other complications Plan: S/P EVLT with Dr. Jj in 2022 Follow up with vascular surgery as scheduled (8) Nocturnal leg cramps: Code(s): G47.62 - Sleep related leg cramps Category: Medical Plan: Continue Magnesium oxide 400 mg Q HS (9) Vitamin D deficiency: Code(s): E55.9 - Vitamin D deficiency, unspecified Category: Medical Plan: Continue Vitamin D2 99660 units once a week (10) GERD without esophagitis: Code(s): K21.9 - Gastro-esophageal reflux disease without esophagitis Category: Medical Plan: Dietary restrictions reinforced Continue Omeprazole 20 mg QD (11) Constipation: Code(s): K59.00 - Constipation, unspecified Category: Medical Qualifiers: Constipation type: unspecified constipation type Qualified Code(s): K59.00 - Constipation, unspecified Plan: She is again encouraged on increased oral fluids and dietary fiber intake Continue MiraLax 17 gm QD and Senna 8.6 mg 1 tablet once a day as needed (12) Allergic rhinitis: Code(s): J30.9 - Allergic rhinitis, unspecified Category: Medical Qualifiers: Allergic rhinitis seasonality: unspecified Allergic rhinitis trigger: unspecified Qualified Code(s): J30.9 - Allergic rhinitis, unspecified Plan: Continue Cetirizine 10 mg Q PM and Fluticasone 50 mcg nasal spray QD PRN (13) Obstructive sleep apnea: Code(s): G47.33 - Obstructive sleep apnea (adult) (pediatric) Category: Medical Plan: Patient has AutoPAP / CPAP device but admits that she has not used it in a few years now as it is not comfortable for her to keep it on when she is sleeping at night She has been advised to try sleeping on her side to help reduce her snoring Follow up with Sleep Medicine as scheduled (14) Overactive bladder: Code(s): N32.81 - Overactive bladder Category: Medical Plan: Follow up with Urology as scheduled (15) Insomnia: Code(s): G47.00 - Insomnia, unspecified Category: Medical Qualifiers: Insomnia type: unspecified Qualified Code(s): G47.00 - Insomnia, unspecified Plan: Sleep hygiene reinforced She was previously started back on Zolpidem 5 mg Q HS PRN as she reports feeling very dizzy whenever she took Trazodone 100 mg Q HS in the past (16) Anxiety: Code(s): F41.9 - Anxiety disorder, unspecified Category: Medical Plan: Continue Lorazepam 1 mg BID as needed and Sertraline 50 mg QD (17) Morbid obesity with BMI of 40.0-44.9, adult: Code(s): E66.01 - Morbid (severe) obesity due to excess calories; Z68.41 - Body mass index [BMI] 40.0-44.9, adult Category: Medical Plan: Reinforced diet; exercise and weight loss are unrealistic given patient multiple physical issues and comorbidities although she has managed to lose at least 16 pounds since her last visit with walking and watching her diet better Plan Follow up in 4 months Orders: Orders Complete Blood Count Auto Diff 4 Months D64.9 - Anemia, unspecified Lipid Panel 4 Months E78.00 - Pure hypercholesterolemia, unspecified Microalbumin, Random (w Creat) 4 Months E11.9 - Type 2 diabetes mellitus without complications TSH reflex Free T4 4 Months E78.00 - Pure hypercholesterolemia, unspecified UA CC w/rflx Micro + Cult 4 Months R30.0 - Dysuria Vitamin B12 and Folate 4 Months E53.8 - Deficiency of other specified B group vitamins Comprehensive [place]. Panel Fast 4 Months E78.00 - Pure hypercholesterolemia, unspecified Hemoglobin A1c 4 Months E11.9 - Type 2 diabetes mellitus without complications Vitamin D 25-OH Total 4 Months E55.9 - Vitamin D deficiency, unspecified
[2025-09-20 11:12] VITALS: BP 124/60; PULSE 63; RESP 18; TEMP 36.3; O2SAT 97; BMI 39.5
--- OUTSIDE RECORDS SUMMARY | 2025-09-20 13:05 | XMS_ITS | Clinical Summary ---
Author Organization [facility] Address [address] [place] [phone] Phone Care Team Providers Care Oracle Engineer Name Role Phone Anthony Lui MD Primary Care Provider [phone] Allergies No known active allergies Medications aspirin [...] just had labs done for PCP at [facility]. I am requesting that these be [...] Description 08/23/2025 11:00 AM EDT Office Visit [facility] [address], [address] [place], [place] [id number] Sita Daugherty, DIONY Benign essential hypertension (Primary [...] Description 02/25/2026 11:45 AM EDT Office Visit [facility] [address], [address] [place] [address] Tino Jj, [address] [place] [address] [email or web address] Health Maintenance Due Date Last Done Comments [...] MEDICARE PART A & B DILCIA [place]NE [id number] [facility] MEDICARE PART A & B Care Teams Oracle Engineer Relationship Specialty Start Date End Date Anthony Lui MD [address] [place] [address] [place] [address] PCP - General Internal Medicine 09/23/21 Additional Source Comments The information contained in this document represents components of the legal health record. It is not the complete legal health record.[facility]
== END 2025-09-20 11:54 | disposition home or self-care (01) ==
LOC: HO.HMCH 10:47
PROVIDERS: PCP Internal Medicine; Visit Provider Internal Medicine
DX: E78.2 Mixed hyperlipidemia (principal); E11.9 Type 2 diabetes mellitus without complications; I10 Essential (primary) hypertension; M17.0 Bilateral primary osteoarthritis of knee; M12.812 Other specific arthropathies, not elsewhere classified, left shoulder; M06.4 Inflammatory polyarthropathy; I83.893 Varicose veins of bilateral lower extremities with other complications; G47.62 Sleep related leg cramps; E55.9 Vitamin D deficiency, unspecified; K21.9 Gastro-esophageal reflux disease without esophagitis; E66.01 Morbid (severe) obesity due to excess calories; Z68.41 Body mass index [BMI] 40.0-44.9, adult; K59.00 Constipation, unspecified; J30.9 Allergic rhinitis, unspecified; G47.33 Obstructive sleep apnea (adult) (pediatric); N32.81 Overactive bladder; G47.00 Insomnia, unspecified; F41.9 Anxiety disorder, unspecified

== ENCOUNTER → 2025-09-20 10:46 | Outpatient (BNVA) | payer MEDICARE, MEDICAID, SELFPAY | PROVIDERS: PCP Internal Medicine; Visit Provider Internal Medicine | DX: E78.2 Mixed hyperlipidemia (principal); E11.9 Type 2 diabetes mellitus without complications; I10 Essential (primary) hypertension; M17.0 Bilateral primary osteoarthritis of knee; M06.4 Inflammatory polyarthropathy; I83.893 Varicose veins of bilateral lower extremities with other complications; G47.62 Sleep related leg cramps; E55.9 Vitamin D deficiency, unspecified; K21.9 Gastro-esophageal reflux disease without esophagitis; K59.00 Constipation, unspecified; G47.33 Obstructive sleep apnea (adult) (pediatric); J30.9 Allergic rhinitis, unspecified; N32.81 Overactive bladder; G47.00 Insomnia, unspecified; F41.9 Anxiety disorder, unspecified; E66.01 Morbid (severe) obesity due to excess calories; Z68.41 Body mass index [BMI] 40.0-44.9, adult; Z71.3 Dietary counseling and surveillance | CPT/HCPCS: 99212 ==